=== PATIENT | male | born 1935 | race Caucasian/White ===

== ENCOUNTER 2018-05-17 01:53 | Inpatient (IN) | payer MEDICARE, OTHER ==
[2018-05-17 01:39] LABS: Albumin 4.3 g/dL (3.5-5.0); Calcium 10.1 mg/dL (8.4-10.2); Magnesium 1.9 mg/dL (1.6-2.3); Total Bilirubin 1.3 mg/dL (0.2-1.3); Total Protein 7.9 g/dL (6.3-8.2)
[2018-05-17 01:43] LABS: HCT 48.1 % (39.0-53.0); HGB 15.1 gm/dL (13.0-17.5); MCH 32.5 pg (25.0-35.0); MCHC 31.4 g/dL (31.0-37.0); MCV 103.6 fL (80.0-100.0); Macrocytosis Slight; Mean Platelet Volume 8.6; Platelet Count 262 k/uL (150-450); RBC 4.65 m/uL (4.30-5.90); RDW 13.8 % (11.5-15.5); WBC 12.5 k/uL (3.8-10.6)
--- NOTE | 2018-05-17 01:44 | XR ---
EXAMINATION TYPE: XR chest 2V DATE OF EXAM: 05/17/2018 COMPARISON: 06/19/2016 HISTORY: Difficulty breathing TECHNIQUE: Frontal and lateral views of the chest are obtained. FINDINGS: There is coarsening of the lung markings at the bases. There is no heart failure. Thoracic aorta is atheromatous. There are chest leads. There is mild wedging of T10 vertebral body. IMPRESSION: Pulmonary fibrosis. No gross heart failure. Minimal left lower lobe pneumonia cannot be entirely excluded. There is new mild compression fracture of T11 compared to old exam.
[2018-05-17 01:46] LABS: Potassium 5.8 mmol/L (3.5-5.1)
[~2018-05-17 01:53] MED LIST: FAMOTIDINE 20 MG/2 ML VIAL IV STA; MORPHINE SULFATE 2 MG/ML SYRINGE IVP STA
[2018-05-17 01:58] LABS: INR 1.1 (<1.2); Partial Thromboplastin Time 23.1 sec (22.0-30.0); Prothrombin Time 10.4 sec (9.0-12.0)
[2018-05-17] MEDS ORDERED: HEPARIN SODIUM,PORCINE 5,000 UNIT/ML 1 ML VIAL IV ONE (02:09)
[2018-05-17] MEDS ORDERED: HEPARIN SODIUM,PORCINE 5,000 UNIT/ML 1 ML VIAL IV PRN (02:09)
[2018-05-17] MEDS ORDERED: SODIUM CHLORIDE 0.9% 500 ML 500 ML IV ONE ×2 (02:10→11:11)
[2018-05-17 02:12] LABS: Creatine Kinase MB 0.8 ng/mL (0.0-2.4); Troponin I 0.024 ng/mL (0.000-0.034)
[2018-05-17] MEDS ORDERED: HEPARIN SOD,PORK IN 0.45% NACL 25,000 UNIT in 0.45% NACL 1 500ML.BAG IV SCH (02:15)
[2018-05-17 02:26] LABS: Band Neutrophils % 1 %; Lymphocytes # (M) 3.38 k/uL (1.0-4.8); Monocytes # (M) 1.13 k/uL (0-1.0); Neutrophils % (M) 63 %; Nucleated Red Blood Cells 0 /100 WBC (0-0); Total Cells Counted 100
[2018-05-17 02:27] LABS: Anisocytosis (M) Present
[2018-05-17 02:28] LABS: Large Platelets Present
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
[2018-05-17] MEDS ORDERED: MORPHINE SULFATE 4 MG/ML SYRINGE IVP STA (02:35)
[2018-05-17] MEDS ORDERED: LABETALOL 5 MG/ML VIAL MDV IVP STA ×2 (02:37→03:21)
[2018-05-17] MEDS ORDERED: HYDROmorphone 1 MG/ML 1 ML SYRINGE IVP STA (03:21)
--- NOTE | 2018-05-17 03:32 | CT ---
EXAMINATION TYPE: CT angio thor/abd pel aorta DATE OF EXAM: 05/17/2018 COMPARISON: None HISTORY: Prior Chest and A/P on synapse, no prior dedicated aorta study, chest pain worsening over th e last 3 days, evaluate aorta, CT DLP: 1334.70 mGycm. Automated Exposure Control for Dose Reduction was Utilized. CONTRAST: CT scan of the thorax, abdomen and pelvis is performed with IV Contrast, patient injected with 80ml m L of Isovue 370. FINDINGS: There are 3-D post processed images. Thoracic aorta is atheromatous. There is extensive coronary artery calcification. There is atheroscle rotic vascular calcification in the abdominal aorta and its branches. Heart is slightly enlarged. The re is no pericardial effusion. The ascending aorta measures 4 cm. There is atherosclerotic plaque in the descending thoracic aorta. There is patency of the celiac artery and superior mesenteric artery. There is bilateral patency of the renal arteries. There is variable thrombus on the posterior wall of the mid abdominal aorta. There is no evidence of hemodynamically significant stenosis. There is bilateral patency of the common internal and external iliac arteries. I see no evidence of h emodynamically significant stenosis. There is some plaque formation at the left common iliac artery. Kidneys have fairly normal size. There is no hydronephrosis. There are clips from cholecystectomy. Li yudelka spleen pancreas appear unremarkable. There is no adrenal mass. There are mild fibrotic changes at the lung bases. There is old upper thoracic vertebra mild 30% compression fracture. IMPRESSION: Atherosclerotic vascular disease. Borderline 4 cm aneurysm ascending aorta. No evidence of hemodynami teresa significant stenosis. No evidence of aortic dissection.
[2018-05-17] MEDS ORDERED: ENALAPRILAT 1.25 MG/ML 1 ML VIAL IVP STA ×2 (03:49→05:36)
[2018-05-17] MEDS ORDERED: MORPHINE SULFATE 2 MG/ML SYRINGE IVP PRN (04:21)
[2018-05-17] MEDS ORDERED: HYDROcodone/APAP 5-325MG 1 EACH TAB PO PRN (04:24)
[2018-05-17] MEDS ORDERED: NITROGLYCERIN-D5W PMX 50 MG in DEXTROSE/WATER 1 250ML.BAG IV ONE (05:36)
[2018-05-17] MEDS ORDERED: ASPIRIN 325 MG TAB PO STA (07:46)
[2018-05-17] MEDS ORDERED: ATORVASTATIN 80 MG TAB PO STA (07:46)
[2018-05-17] MEDS ORDERED: NITROGLYCERIN SL TABS 0.4 MG TAB SUBLINGUAL PRN ×2 (07:46→12:23)
[2018-05-17] MEDS ORDERED: ALPRAZolam 0.25 MG TAB PO PRN (07:46)
[2018-05-17] MEDS ORDERED: ALPRAZolam 0.5 MG TAB PO PRN (07:46)
[2018-05-17] MEDS ORDERED: SODIUM CHLORIDE 0.9% 1,000 ML in EMPTY BAG 1 BAG IV ONE (07:46)
--- NOTE | 2018-05-17 08:26 | CONS ---
CONSULTATION ATTENDING PHYSICIAN: Dr. Betancourt. HISTORY OF PRESENT ILLNESS: Mr. Taylor is an 82-year-old male with known history of coronary artery disease who presented with symptoms of chest and right arm discomfort. He has been having discomfort on and off for the last week or so. The discomfort is not activity related and worse at times with eating. The patient is not active physically because of severe osteoarthritis and uses a wheelchair. He has no prior documented history of myocardial infarction or congestive heart failure. He has no PND, orthopnea. He has occasional peripheral edema. He has no dizziness, palpitation, or syncope. His coronary risk factors are remarkable for smoking over half a pack a day, history of hypertension. He is nondiabetic. MEDICATIONS: Include ranitidine, Zestril 20 mg twice a day, levofloxacin, and hydrocodone. REVIEW OF SYSTEMS: Respiratory system: He has history of dyspnea on exertion, history of chronic obstructive lung disease. GI system: No recent GI bleeding. No peptic ulcer disease. system: No dysuria or hematuria. Nervous system: No stroke or seizure. PHYSICAL EXAMINATION: He is an 82-year-old male, alert, oriented, in no apparent distress. Blood pressure running in the 160s with a heart rate in the 60s. HEAD: Normocephalic. Eyes: Sclerae anicteric. Neck: Good upstroke. No bruit. Lungs with decreased air exchange. No wheezes. Heart: Regular rate and rhythm. S1, S2. No S3 with a systolic ejection murmur heard at the base. No diastolic murmur. No rub. ABDOMEN: Soft, nontender. Positive bowel sounds. No megaly. EXTREMITIES: Trace edema. Decreased distal pulses. LAB DATA: Revealed the potassium 5.8, BUN and creatinine 33 and 1.32. Hemoglobin 15.1, white blood cell 12.5. Troponin 0.024. NT proBNP of 280. Chest x-ray revealed pulmonary fibrosis. No significant heart failure. Revealed a 4 cm ascending aorta, atherosclerotic vascular disease. EKG revealed a sinus mechanism, normal axis. Evidence left ventricle hypertrophy with ST-segment depression in the inferolateral leads. No significant ST-T elevation. IMPRESSION: 1. Symptoms of chest discomfort consistent with unstable angina, rule out non STEMI. 2. History of hypertension. 3. Chronic tobacco use. Chronic obstructive lung disease. 4. Renal function abnormality of unknown duration. RECOMMENDATION: I recommend proceeding with coronary angiography to assess his status and guide his treatment. The rationale behind the procedure as well as risks and complications were discussed with the patient and his family who are in full understanding and agreement. The patient has a high risk because of his history of chronic kidney disease. Thank you for this consult. We will follow with you. NILSA / ESTEFANY: [id number] /
[2018-05-17 08:36] LABS: Creatine Kinase MB 11.2 ng/mL (0.0-2.4)
[2018-05-17 08:52] LABS: Troponin I 0.334 ng/mL (0.000-0.034)
[2018-05-17] MEDS ORDERED: LISINOPRIL 20 MG TAB PO SCH ×2 (09:00→13:15)
[2018-05-17] MEDS ORDERED: VERAPAMIL 2.5 MG/ML 2 ML AMP ONE (10:45)
[2018-05-17] MEDS ORDERED: LIDOCAINE 1% INJ 10MG/ML (20 ML MDV) ONE (10:45)
[2018-05-17] MEDS ORDERED: fentaNYL (PF) 50 MCG/ML 2 ML AMP ONE (10:46)
[2018-05-17] MEDS ORDERED: IV FLUID CONTINUATION 900 ML IV ONE (11:00)
[2018-05-17] MEDS ORDERED: NITROGLYCERIN D5W PMX IV ONE ×2 (11:00)
[2018-05-17] MEDS ORDERED: FLUID CONTINUATION IV ONE ×2 (11:00)
[2018-05-17] MEDS ORDERED: fentaNYL (PF) 50 MCG/ML 2 ML AMP IV ONE (11:31)
[2018-05-17] MEDS: LIDOCAINE 1% INJ 10MG/ML (20 ML MDV) SQ ONE ×2 (11:35→11:45)
[2018-05-17] MEDS ORDERED: VERAPAMIL SYRINGE (5 MG/10 ML) INTRAARTER ONE (11:36)
[2018-05-17] MEDS ORDERED: TICAGRELOR 90 MG TAB ONE (11:52)
[2018-05-17] MEDS ORDERED: TICAGRELOR 90 MG TAB PO ONE (11:53)
[2018-05-17] MEDS ORDERED: BIVALIRUDIN BOLUS 250 MG/50 ML IV ONE (11:54)
[2018-05-17] MEDS ORDERED: BIVALIRUDIN 250 MG in SODIUM CHLORIDE 0.9% 40 ML IV ONE (11:55)
[2018-05-17] MEDS ORDERED: NITROGLYCERIN 1000MCG/10ML SYRINGE INTRACORON ONE (12:04)
[2018-05-17] MEDS ORDERED: IOPAMIDOL-370 125ML BTL INJ ONE (12:05)
[2018-05-17] MEDS ORDERED: IOPAMIDOL-370 100ML BTL INJ ONE (12:16)
[2018-05-17] MEDS ORDERED: ZOLPIDEM 5 MG TAB PO PRN (12:23)
[2018-05-17] MEDS ORDERED: RX INFO: IV CONTRAST WAS GIVEN 1 EACH MISC MISCELLANE PRN (12:23)
[2018-05-17] MEDS ORDERED: ATROPINE SULFATE 0.1 MG/ML 10ML SYRINGE IV PRN (12:23)
[2018-05-17] MEDS ORDERED: SODIUM CHLORIDE 0.9% 1,000 ML IV SCH (12:30)
[2018-05-17] MEDS ORDERED: LISINOPRIL 20 MG TAB PO STA (12:53)
[2018-05-17 13:25] LABS: Glucose,Whole Blood 120 mg/dL (75-99)
[2018-05-17] MEDS ORDERED: FUROSEMIDE 10 MG/ML 2 ML VIAL IV ONE (13:30)
[2018-05-17] MEDS: NITROGLYCERIN SL TABS 0.4 MG TAB SUBLINGUAL PRN ×2 (13:31→13:34)
[2018-05-17] MEDS ORDERED: hydrALAZINE HCL 25 MG TAB PO STA (13:40)
[2018-05-17 14:11] LABS: Creatine Kinase MB 48.6 ng/mL (0.0-2.4)
[2018-05-17 14:13] LABS: Troponin I 6.25 ng/mL (0.000-0.034)
[2018-05-17] MEDS: METOPROLOL TARTRATE 50 MG TAB PO SCH ×2 (14:57→20:41)
--- NOTE | 2018-05-17 14:57 | XR ---
EXAMINATION TYPE: XR chest 1V DATE OF EXAM: 05/17/2018 COMPARISON: 05/17/2018 earlier exam, 06/19/2016 INDICATION: Dyspnea TECHNIQUE: Single frontal view of the chest is obtained. Patient is rotated to the right. FINDINGS: The heart size is normal. Mediastinum is stable. The pulmonary vasculature is normal. The lungs are clear. IMPRESSION: 1. No acute pulmonary process.
[2018-05-17 14:59] LABS: Glucose,Whole Blood 129 mg/dL (75-99)
--- NOTE | 2018-05-17 15:38 | CC ---
CARDIAC CATHETERIZATION REPORT ATTENDING: Dr. Betancourt Mr. Taylor is an 82-year-old male known history of chronic tobacco use, history off hypertension, who presented with symptoms of chest discomfort and ST depression in the inferolateral leads with minimal troponin elevation. In view of that, recommendation made regarding cardiac catheterization. The procedure, risks and complications were discussed with the patient who is in full understanding and agreement. PROCEDURE: Patient was brought to the quality lab technician in a fasting state after receiving fentanyl and Benadryl and achieving moderate conscious sedated state. Using Xylocaine anesthesia and Seldinger technique, a 6-Nigerian sheath was introduced in the right radial artery. Attempt to advance and torque a 5-Nigerian 3 and half right Kathleen catheter were unsuccessful because of severe tortuosity in the right subclavian. The aortic valve was crossed and left ventricular end-diastolic pressure was measured. Following that, using Xylocaine anesthesia and Seldinger technique, a 6-Nigerian sheath was introduced in the right femoral artery. Selective right and left angiography performed using 6- Nigerian 4 bend right and left Kathleen catheter, multiple views of the coronary artery including hemiaxial views were obtained. Following that catheter was removed. Angioplasty and stenting was performed. Following that the catheter and sheath were removed. Hemostasis was obtained with deployment of an Angio-Seal in the right femoral artery and TR band on the right radial artery. There was no immediate complication. Of note, the patient received Angiomax per protocol as well as intra-arterial verapamil. FINDINGS: FLUOROSCOPY: There was calcification involving the left main and the LAD. LEFT ANTERIOR DESCENDING CORONARY ARTERY: This is a large-sized vessel reaching toward the apex with a wraparound apex segment giving rise to a diagonal branch proximally. The LAD in the mid segment after the takeoff of the diagonal branch has an area of stenosis of about 70-80 percent. At the first diagonal branch it is occluded shortly after the takeoff. LEFT CIRCUMFLEX: This vessel is nondominant. There is an area in the proximal segment that is suggestive of a chronically occluded first obtuse marginal branch that is very proximal. Beyond that the circ is diffusely diseased and small in caliber. RIGHT CORONARY ARTERY: This is a large dominant vessel, bifurcating into PDA and posterolateral segment and branches. Right coronary artery is diffusely diseased throughout its course and ectatic in some areas. It has a area of stenosis up to 60-70 percent. There is collateral from the right coronary artery toward the obtuse marginal branch. LEFT VENTRICULOGRAM: Left ventriculogram is not performed. HEMODYNAMICS: There was no gradient across the aortic valve. The left ventricle end- diastolic pressure is 18-20 mmHg. CONCLUSION: 1. Acutely occluded first diagonal branch. 2. Significant disease in the mid LAD. 3. Appearance of chronic occlusion of the first obtuse marginal branch. 4. Moderate to severe disease in a diffuse pattern in the right coronary artery. RECOMMENDATION: In view of finding anatomy, I recommend proceeding with angioplasty and stenting of the diagonal branch and in a staged procedure, consider intervention on the LAD because of the baseline renal function. Those findings and recommendation were discussed with the patient and he is full understanding and agreement. MMODL / IJN: [id number] /
--- NOTE | 2018-05-17 15:38 | PTCA ---
PERCUTANEOUSTRANS CORORONARY ANGIOGRAPHY Mr. Taylor is an 82-year-old male with known history of chronic tobacco use, history of hypertension who presented with non ST-segment elevation myocardial infarction, underwent cardiac catheterization, was found to have a totally occluded first diagonal branch. In view of that, recommendation was made regarding angioplasty and stenting. The procedures as well as risks and complication were discussed with the patient who is in full understanding and agreement. PROCEDURE: A 6-Vietnamese FR4 guiding catheter in the system. After cannulating the left main a 0.014 balanced medium weight J-wire was advanced across the total occlusion, positioned distally. Then a 2.5 x 12 mm Trek balloon was advanced into inflation with maximum of 8 atmospheres were done. Following that, the balloon was removed and a 2.25 x 50 mm Xience Rosy stent was advanced, deployed and postdilated at 14 atmospheres. After the last inflation, after appropriate wait, the balloon and the guidewire were withdrawn back in the guiding catheter. Images were obtained repeated. Those images reveal stable successful stenting. At that point, the guiding catheter, the balloon and the guidewire were removed. The sheath was removed. Hemostasis was obtained with deployment of Angio-Seal and the radial artery sheath was removed and hemostasis was obtained with deployment of a TR band. The patient was returned to his room in stable condition. He had no chest discomfort at the end the procedure. Of note, he received Angiomax per protocol as well as oral loading dose of Brilinta. RESULTS: Successful stenting of the first diagonal branch with reduction of stenosis from 100% to 0%. RECOMMENDATION: The patient will be continued on present medical therapy with dual antiplatelet treatment and aggressive risk modification. Depending on his renal function, he will be brought back to undergo stenting of the LAD. Those findings and recommendation were discussed with the patient his family who are in full understanding and agreement. Duration of procedure is 44 minutes. MMODL / IJN: [id number] /
[2018-05-17] MEDS: SODIUM CHLORIDE 0.9% 1,000 ML IV SCH (16:46)
[2018-05-17] MEDS: NITROGLYCERIN OINT 1 INCH/GM PACKET TOPICAL SCH ×2 (16:46→23:08)
[2018-05-17] MEDS: TICAGRELOR 90 MG TAB PO SCH (20:41)
[2018-05-17] MEDS: hydrALAZINE HCL 25 MG TAB PO SCH (20:41)
[2018-05-17] MEDS ORDERED: LISINOPRIL 10 MG TAB PO SCH (21:00)
[2018-05-17] MEDS ORDERED: ATORVASTATIN 80 MG TAB PO SCH (21:00)
[2018-05-18] MEDS: FAMOTIDINE 20 MG TAB PO PRN (05:04)
[2018-05-18] MEDS ORDERED: ONDANSETRON 4 MG/2 ML VIAL IVP PRN (05:06)
[2018-05-18 05:47] LABS: Calcium 9.8 mg/dL (8.4-10.2)
[2018-05-18 05:56] LABS: Potassium 4.6 mmol/L (3.5-5.1)
[2018-05-18 06:46] LABS: HCT 47.6 % (39.0-53.0); HGB 15.5 gm/dL (13.0-17.5); MCH 32.9 pg (25.0-35.0); MCHC 32.5 g/dL (31.0-37.0); MCV 101.2 fL (80.0-100.0); Macrocytosis Slight; Mean Platelet Volume 8.4; Platelet Count 219 k/uL (150-450); RDW 13.7 % (11.5-15.5); WBC 10.2 k/uL (3.8-10.6)
--- NOTE | 2018-05-18 07:42 | PN ---
PROGRESS NOTE Mr. Taylor is an 82-year-old male who presented with an acute myocardial infarction, underwent cardiac catheterization, was found to have acutely occluded first diagonal branch. He underwent stenting of that vessel. He has obstructive disease involving the LAD and chronically occluded first obtuse marginal branch. Yesterday, he became dyspneic after the procedure. He is feeling better this morning. He is breathing is stable. He has no significant chest pain. He has no dizziness or palpitation. Hemodynamically, he is stable. He is short of breath when he moves, but at home he is very limited in physical activity. He continues to be on aspirin once a day, Lipitor 80 mg daily, Brilinta 90 mg twice a day, hydralazine 25 mg twice a day, lisinopril 40 mg daily, metoprolol tartrate 50 mg twice a day. PHYSICAL EXAMINATION: Blood pressure 135/70 with the heart rate in the 60s. LUNGS: Decreased air exchange. No wheezes. HEART: Regular rate and rhythm. S1, S2. No S3. No rub. ABDOMEN: Soft, nontender. Positive bowel sounds. No organomegaly. EXTREMITIES: No edema. Right radial pulse intact. Right Femoral: No hematoma. LAB DATA: Lab data revealed BUN and creatinine 19 and 1.03. Potassium 4.6. Hemoglobin 15.5. His troponin peak is 6.25. EKG revealed sinus mechanism with T-wave inversion in the lateral leads consistent with lateral wall myocardial infarction. IMPRESSION: 1. Status post myocardial infarction involving the diagonal branch, status post stenting. 2. Significant obstructive disease in the mid left anterior descending artery. 3. Renal failure, improved. 4. Chronic dyspnea with chronic tobacco use. 5. Hypertension. RECOMMENDATION: From the cardiac standpoint, I will obtain an echocardiogram with Doppler. Will increase his level of activity. He will be transferred to telemetry floor. If his renal functions are stable, we will proceed on Friday with percutaneous revascularization of his LAD territory. MMODL / IJN: [id number] /
[2018-05-18] MEDS ORDERED: ASPIRIN 325 MG TAB PO SCH (09:00)
[2018-05-18] MEDS ORDERED: METOPROLOL SUCCINATE (ER) 50 MG TAB.ER.24H PO SCH (09:00)
[2018-05-18] MEDS: hydrALAZINE HCL 25 MG TAB PO SCH ×2 (09:28→19:49)
[2018-05-18] MEDS: ASPIRIN 81 MG PO SCH (09:28)
[2018-05-18] MEDS: NITROGLYCERIN OINT 1 INCH/GM PACKET TOPICAL SCH ×3 (09:28→23:54)
[2018-05-18] MEDS: LISINOPRIL 20 MG TAB PO SCH ×2 (09:29→19:48)
[2018-05-18] MEDS: TICAGRELOR 90 MG TAB PO SCH ×2 (09:29→19:49)
[2018-05-18] MEDS: METOPROLOL TARTRATE 50 MG TAB PO SCH ×2 (09:29→19:49)
[2018-05-18] MEDS ORDERED: IPRATROPIUM-ALBUTEROL 3 ML NEB INHALATION PRN ×2 (09:32)
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
--- NOTE | 2018-05-18 09:55 | ECHOF ---
Referral Reason:sc MEASUREMENTS -------- HEIGHT: 182.9 cm WEIGHT: 99.3 kg BP: 123/89 IVSd: 1.2 cm (0.6 - 1.1) LVIDd: 5.1 cm (3.9 - 5.3) LVPWd: 1.6 cm (0.6 - 1.1) IVSs: 1.6 cm LVIDs: 3.7 cm LVPWs: 1.4 cm Ao Diam: 2.9 cm (2.0 - 3.7) LA Diam: 3.8 cm (2.7 - 3.8) MV E Suraj: 0.55 m/s MV DecT: 200 ms MV A Suraj: 1.01 m/s MV E/A Ratio: 0.54 RAP: 5.00 mmHg RVSP: 10.57 mmHg FINDINGS -------- Sinus rhythm. This was a techncally difficult study with suboptimal views, , Lumason utilized for enhancement of im ages. The left ventricular size is normal. There is mild concentric left ventricular hypertrophy. Overa ll left ventricular systolic function is mild-moderately impaired with, an EF between 40 - 45 %. Mi d anterior LV wall motion is hypokinetic. The right ventricle is normal in size. The left atrial size is normal. The right atrial size is normal. 5.0mg OF Lumason UTLIZED: 2 OR MORE WALL SEGMENTS NOT VISUALIZED. The aortic valve was not well visualized. Mild mitral regurgitation is present. Mild tricuspid regurgitation present. There is no evidence of pulmonary hypertension. The right v entricular systolic pressure, as measured by Doppler, is 10.57mmHg. The pulmonic valve was not well visualized. The aortic root size is normal. There is no pericardial effusion. CONCLUSIONS -------- 1. This was a techncally difficult study with suboptimal views, , Lumason utilized for enhancement of images. 2. The left ventricular size is normal. 3. There is mild concentric left ventricular hypertrophy. 4. Overall left ventricular systolic function is mild-moderately impaired with, an EF between 40 - 45 %. 5. Mid anterior LV wall motion is hypokinetic. 6. The right ventricle is normal in size. 7. The left atrial size is normal. 8. The right atrial size is normal. 9. 5.0mg OF Lumason UTLIZED: 2 OR MORE WALL SEGMENTS NOT VISUALIZED. 10. The aortic valve was not well visualized. 11. Mild mitral regurgitation is present. 12. Mild tricuspid regurgitation present. 13. There is no evidence of pulmonary hypertension. 14. The right ventricular systolic pressure, as measured by Doppler, is 10.57mmHg. 15. The pulmonic valve was not well visualized. 16. The aortic root size is normal. 17. There is no pericardial effusion. SEQUINS SPOOLER: Ludy Eddy RDCS
[2018-05-18] MEDS ORDERED: ASPIRIN 325 MG TAB PO STA (11:10)
[2018-05-18] MEDS ORDERED: ALPRAZolam 0.25 MG TAB PO PRN (11:10)
[2018-05-18] MEDS ORDERED: NITROGLYCERIN SL TABS 0.4 MG TAB SUBLINGUAL PRN (11:10)
[2018-05-18] MEDS ORDERED: SODIUM CHLORIDE 0.9% 1,000 ML in EMPTY BAG 1 BAG IV ONE (11:10)
[2018-05-18] MEDS ORDERED: ALPRAZolam 0.5 MG TAB PO PRN (11:10)
[2018-05-18] MEDS: SODIUM CHLORIDE 0.9% 1,000 ML IV SCH (11:27)
--- NOTE | 2018-05-18 12:37 | HP ---
HISTORY AND PHYSICAL CHIEF COMPLAINT: Chest pain. HISTORY OF PRESENT ILLNESS: This is the first known admission for this 82-year-old white male with history of coronary artery disease and COPD. He presented to the emergency room with severe crushing substernal chest pain with shortness of breath and diaphoresis. He was diagnosed as having a myocardial infarction and was admitted. REVIEW OF SYSTEMS: He has had no syncope, confusion, neurologic deficits, hemoptysis, pleurisy, fever, chills, abdominal pain, vomiting and diarrhea, etc. Past medical history, family history and personal and social histories reveal he is allergic to PENICILLIN. He is on Nitrostat p.r.n., Zantac 150 twice a day, lisinopril 40 once a day, timolol eye drops, [place] 5 once a day p.r.n., and Naprosyn 500 b.i.d. Past medical history, family history and personal and social histories reveal that he has had coronary artery disease, history of alcohol abuse, kidney stones, and cataract removed from the left eye. In 2016, he also had a bladder neoplasm. He has had a cholecystectomy and a T and A. He was a former smoker, but states he is not now. He drinks fairly heavily with 4 shots of liquor a day by his own admission. PHYSICAL EXAM: Blood pressure is 150/85 with a pulse of 92, respirations of 36 and he is afebrile. GENERAL: He appeared to be uncomfortable. Skin was dry. Head, ears, eyes, nose, mouth and throat demonstrated dilated left pupil, which is chronic. Neck is supple. Neck veins not distended. Carotids are normal. Chest demonstrated increased AP diameter with what sounded like sinus rhythm. There are no murmurs or extra sounds. Abdomen is soft and nontender without visceromegaly or masses. Extremities were normal. Neurologically, he is intact. He is admitted to the hospital with diagnoses: 1. Acute myocardial infarction. 2. Coronary artery disease. 3. Chronic obstructive pulmonary disease. 4. Alcoholism. 5. Glaucoma. PLAN: 1. Bed rest. 2. IV fluids. 3. Consult with Cardiology. MMODL / IJN: [id number] /
--- NOTE | 2018-05-18 13:21 | PN ---
PROGRESS NOTE DATE OF SERVICE: 05/18/2018. CHIEF COMPLAINT: Acute myocardial infarction. HISTORY OF PRESENT ILLNESS: This gentleman was moved to ICU during the night because of persistent chest pain after his stent. He has apparently been fairly stable and does not have any further pain. He has had no shortness of breath, headache, confusion, palpitations, etc. PHYSICAL EXAM: Cardiac exam demonstrates what sounds like bradycardia and possibly atrial fibrillation. Chest is clear, but breath sounds are diminished. IMPRESSION: 1. Acute myocardial infarction. 2. Unstable angina. 3. Coronary artery disease. 4. Chronic obstructive pulmonary disease. 5. Alcoholism. PLAN: Probably move back to telemetry today and he will have another stent tomorrow. MMODL / IJN: [id number] /
[2018-05-18 14:58] VITALS: BMI 29.7
[2018-05-18] MEDS: ATORVASTATIN 80 MG TAB PO STA ×2 (19:30→19:50)
[2018-05-19 06:31] LABS: Calcium 9.6 mg/dL (8.4-10.2); Potassium 4.7 mmol/L (3.5-5.1)
[2018-05-19] MEDS: SODIUM CHLORIDE 0.9% 1,000 ML IV SCH (07:04)
[2018-05-19] MEDS: METOPROLOL TARTRATE 50 MG TAB PO SCH ×2 (09:35→21:32)
[2018-05-19] MEDS: hydrALAZINE HCL 25 MG TAB PO SCH ×2 (09:35→21:33)
[2018-05-19] MEDS: TICAGRELOR 90 MG TAB PO SCH ×2 (09:35→21:32)
[2018-05-19] MEDS: LISINOPRIL 20 MG TAB PO SCH ×2 (09:35→21:33)
[2018-05-19] MEDS: ASPIRIN 81 MG PO SCH ×2 (09:35→13:28)
[2018-05-19] MEDS: NITROGLYCERIN OINT 1 INCH/GM PACKET TOPICAL SCH ×3 (09:38→22:41)
[2018-05-19] MEDS: MAG HYDROX/AL HYDROX/SIMETH 30 ML CUP PO PRN ×2 (11:01→15:41)
--- NOTE | 2018-05-19 11:32 | PN ---
PROGRESS NOTE Mr. Taylor is an 82-year-old male with a known history of hypertension who presented with a [id number] elevation myocardial infarction, underwent cardiac catheterization, was found totally occluded first diagonal branch. He had significant disease in the mid LAD and chronically occluded obtuse marginal branch. He is doing well this morning. His breathing is stable. He is denying any chest pain. He denies any dizziness or palpitation. He denies any nausea. Hemodynamically, he is stable. His echocardiogram that was performed yesterday revealed an ejection fraction of 40% to 45%. He continued be on aspirin once a day, Lipitor 80 mg daily, hydralazine 25 mg twice a day, lisinopril 20 mg twice a day, metoprolol tartrate 50 mg twice a day, Brilinta 90 mg twice a day. PHYSICAL EXAMINATION: Blood pressure in the 120s and 130s with the heart rate in the 50s. LUNGS: Clear. HEART: Regular rate and rhythm. S1, S2. No S3. No rub. ABDOMEN: Soft, nontender. EXTREMITIES: No edema. Peak troponin 24. BUN and creatinine 23 and 1.8. IMPRESSION: 1. Status post myocardial infarction with occlusion of the diagonal branch. 2. Obstructive disease in the left anterior descending artery. 3. Hypertension. 4. Hyperlipidemia. RECOMMENDATION: The patient is scheduled to undergo revascularization of his LAD tomorrow. We will follow his renal function. In the meantime, continue the rest of his medical regimen and depending on his progress, further recommendation will be made. MMCAITLIN / ESTEFANY: [id number] /
--- NOTE | 2018-05-19 13:46 | P.PN ---
Subjective Progress Note Date: 05/19/18 Principal diagnosis: Acute myocardial infarction, status post PCI and stenting of the diagonal branch This 82-year-old white male patient of Dr. Betancourt, who was admitted on 2017 for acute myocardial infarction, he underwent cardiac catheterization, which revealed acutely occluded first diagonal branch. He underwent successful PCI and stenting of that vessel. He has obstructive disease involving the LAD and first obtuse marginal branch. Post PCI patient did develop some dyspnea, but no significant chest pain. He had no dizziness or palpitations. He remained hemodynamically stable. His dyspnea was exertional. His EKG showed sinus mechanism with T-wave inversion in the lateral leads consistent with lateral wall [place]. He was reevaluated by cardiology, he is feeling better this morning, no dyspnea, no chest pain, his vitals remain stable. The plan is to proceed with the cardiac catheterization tomorrow morning. For now patient remains stable, and has been cleared by cardiology to move out of the intensive care unit today. His past medical history is significant for hypertension, chronic tobacco use, COPD, osteoarthritis. We're consulted for intensive care management. On 05/19/2018 patient seen in follow-up. No recurrence of chest pain or dyspnea , cardiology is planning on proceeding with the cardiac cath tomorrow, vital signs remain stable, lung sounds are clear. Today's labs have been reviewed, BNP showed electrolytes within normal limits, BUN of 23 and creatinine 1.18, troponin 24.6. His breathing is stable, no nausea, no vomiting, no diaphoresis. Objective - Vital Signs Vital signs: Vital Signs Temp 98.1 F 05/19/18 08:00 Pulse 52 L 05/19/18 11:45 Resp 16 05/19/18 11:45 BP 141/71 05/19/18 11:10 Pulse Ox 93 L 05/19/18 11:10 Intake & Output 05/18/18 05/19/18 05/19/18 18:59 06:59 18:59 Intake Total 150 700 240 Output Total 100 400 Balance 50 300 240 Weight 99.6 kg 92.9 kg Intake: IV 150 Sodium Chloride 0.9% 1, 150 000 ml @ 50 mls/hr IV . Q20H VIOLETA Rx#:[id number] Intake, IV Titration 700 Amount Sodium Chloride 0.9% 1, 700 000 ml @ 50 mls/hr IV . Q20H VIOLETA Rx#:[id number] Oral 240 Output: Urine 100 400 Other: Voiding Method Urinal Urinal Urinal # Voids 1 - Exam GENERAL EXAM: Alert, pleasant 82-year-old white male patient comfortable in no apparent distress. HEAD: Normocephalic/atraumatic. EYES: Normal reaction of pupils, equal size. Conjunctiva pink, sclera white. NOSE: Clear with pink turbinates. THROAT: No erythema or exudates. NECK: No masses, no JVD, no thyroid enlargement, no adenopathy. CHEST: No chest wall deformity. Symmetrical expansion. LUNGS: Lung sounds are clear CVS: Regular rate and rhythm, normal S1 and S2, no gallops, no murmurs, no rubs ABDOMEN: Soft, nontender. No hepatosplenomegaly, normal bowel sounds, no guarding or rigidity. EXTREMITIES: No clubbing, no edema, no cyanosis, 2+ pulses and upper and lower extremities. MUSCULOSKELETAL: Muscle strength and tone normal. SPINE: No scoliosis or deformity SKIN: No rashes CENTRAL NERVOUS SYSTEM: Alert and oriented -3. No focal deficits, tone is normal in all 4 extremities. PSYCHIATRIC: Alert and oriented -3. Appropriate affect. Intact judgment and insight. - Labs CBC & Chem 7: 05/18/18 04:18 05/19/18 05:41 Labs: Abnormal Lab Results - Last 24 Hours (Table) 05/19/18 Range/Units 05:41 BUN 23 H (9-20) mg/dL Assessment and Plan Assessment: Assessment: #1. Acute myocardial infarction, status post PCI and stenting of the diagonal branch #2. Dyspnea related to the above, improved #3. Coronary artery disease #4. Acute kidney injury, improved #5. COPD, with mild exacerbation #6. Chronic and ongoing nicotine dependence #7. Hypertension #8. Osteoarthritis Plan: No dyspnea, no chest pain. Vital signs are stable, his breathing is stable. The plan is to proceed with cardiac catheterization tomorrow. Lung sounds are clear to auscultation, no crackles, no wheezes. Patient is on room air. From pulmonary perspective patient is stable, and we will follow him on as-needed basis. I performed a history & physical examination of the patient and discussed their management with my nurse practitioner, Belinda Foote. I reviewed the nurse practitioner's note and agree with the documented findings and plan of care. Lung sounds are positive for mild diffuse wheezes throughout the lung saunders. The findings and the impression was discussed with the patient. I attest to the documentation by the nurse practitioner. Time with Patient: Less than 30
[2018-05-19] MEDS: FAMOTIDINE 20 MG TAB PO PRN (15:40)
--- NOTE | 2018-05-19 18:54 | PN ---
PROGRESS NOTE DATE OF SERVICE: 05/19/2018 CHIEF COMPLAINT: Acute CA. HISTORY OF PRESENT ILLNESS: This gentleman is doing well. He is comfortable. It was thought that he was going today for another stent, but it is tomorrow. He is doing well. PHYSICAL EXAM: Chest is clear. Cardiac exam is unchanged. Abdomen is soft, nontender. IMPRESSION: 1. Acute myocardial infarction. 2. Coronary artery disease. 3. Chronic obstructive pulmonary disease. 4. Alcohol abuse. PLAN: Second sitting for stenting tomorrow. MMODL / IJN: [id number] /
[2018-05-19] MEDS: ATORVASTATIN 80 MG TAB PO SCH (21:32)
[2018-05-20] MEDS: SODIUM CHLORIDE 0.9% 1,000 ML IV SCH ×2 (02:57→22:49)
[2018-05-20] MEDS: METOPROLOL TARTRATE 50 MG TAB PO SCH ×2 (04:52→20:18)
[2018-05-20] MEDS: hydrALAZINE HCL 25 MG TAB PO SCH ×2 (04:52→20:19)
[2018-05-20] MEDS: TICAGRELOR 90 MG TAB PO SCH ×2 (04:52→20:18)
[2018-05-20] MEDS: LISINOPRIL 20 MG TAB PO SCH ×2 (04:52→20:18)
[2018-05-20] MEDS ORDERED: ATORVASTATIN 80 MG TAB PO ONE (06:00)
[2018-05-20] MEDS ORDERED: ASPIRIN 325 MG TAB PO ONE (06:00)
[2018-05-20 06:59] LABS: Calcium 9.2 mg/dL (8.4-10.2); Potassium 4.8 mmol/L (3.5-5.1)
[2018-05-20] MEDS ORDERED: LIDOCAINE 1% INJ 10MG/ML (20 ML MDV) ONE (07:22)
[2018-05-20] MEDS ORDERED: fentaNYL (PF) 50 MCG/ML 2 ML AMP ONE (07:23)
[2018-05-20] MEDS ORDERED: fentaNYL (PF) 50 MCG/ML 2 ML AMP IV ONE (07:45)
[2018-05-20] MEDS ORDERED: IV FLUID CONTINUATION 900 ML IV ONE (07:45)
[2018-05-20] MEDS ORDERED: LIDOCAINE 1% INJ 10MG/ML (20 ML MDV) SQ ONE (07:54)
[2018-05-20] MEDS ORDERED: BIVALIRUDIN BOLUS 250 MG/50 ML IV ONE (07:57)
[2018-05-20] MEDS ORDERED: BIVALIRUDIN 250 MG in SODIUM CHLORIDE 0.9% 50 ML IV ONE (07:57)
[2018-05-20] MEDS ORDERED: NITROGLYCERIN 1000MCG/10ML SYRINGE INTRACORON ONE (08:04)
[2018-05-20] MEDS ORDERED: IOPAMIDOL-370 125ML BTL INJ ONE (08:12)
[2018-05-20] MEDS ORDERED: RX INFO: IV CONTRAST WAS GIVEN 1 EACH MISC MISCELLANE PRN (08:38)
[2018-05-20] MEDS ORDERED: ZOLPIDEM 5 MG TAB PO PRN (08:38)
[2018-05-20] MEDS ORDERED: NITROGLYCERIN SL TABS 0.4 MG TAB SUBLINGUAL PRN (08:38)
[2018-05-20] MEDS ORDERED: ATROPINE SULFATE 0.1 MG/ML 10ML SYRINGE IV PRN (08:38)
[2018-05-20] MEDS ORDERED: MAG HYDROX/AL HYDROX/SIMETH 30 ML CUP PO PRN (08:38)
[2018-05-20] MEDS ORDERED: SODIUM CHLORIDE 0.9% 1,000 ML IV SCH (08:45)
--- NOTE | 2018-05-20 08:52 | PTCA ---
PERCUTANEOUSTRANS CORORONARY ANGIOGRAPHY Mr. Taylor is an 82-year-old male with known history of hypertension who presented with [id number] elevation myocardial infarction on the weekend, had a totally occluded diagonal branch that was stented. He also was found to have critical stenosis involving the mid LAD. In view of that, recommendation was made regarding angioplasty and stenting. The procedure as well as the risks and complications were discussed with the patient who is in full understanding and agreement. 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 Using Xylocaine anesthesia in the Seldinger technique, a 6-Japanese sheath was introduced in the left femoral artery. Left coronary angiography performed 6-Japanese FL4 guiding catheter and after cannulating the left main a 0.014 balanced medium weight J-wire was advanced across the lesion, positioned distally. Then a 2.5 x 12 mm Trek balloon was advanced, one inflation at 8 atmospheres was done. Following that, a 3.0 x 15 mm Xience Alpine stent was deployed, postdilated at 16 atmospheres. After the last inflation, after appropriate wait, the balloon and the guidewire were withdrawn back in the guiding catheter. Images were obtained and repeated. Those images reveal stable successful stenting. At that point, the guiding catheter, the balloon and the guidewire were removed. The sheath was removed. Hemostasis was obtained with deployment of an Angio- Seal. There was no immediate complication. Patient was returned to his room in stable condition. Of note, the patient had EKG changes with the inflation with no significant chest pain. He received Angiomax per protocol. RESULTS: Successful stenting of the mid left anterior descending artery with reduction of stenosis from 75% to 0%. RECOMMENDATION: Patient will be continued on aspirin, Brilinta, beta blockers, SALMA inhibitor and statin. The importance of dual antiplatelet treatment were discussed with the patient and his family who are in full understanding and agreement. DURATION OF PROCEDURE: 20 minutes. MMODL / IJN: [id number] /
[2018-05-20] MEDS: NITROGLYCERIN OINT 1 INCH/GM PACKET TOPICAL SCH (09:48)
[2018-05-20] MEDS: ATORVASTATIN 80 MG TAB PO SCH (20:18)
[2018-05-20 20:52] VITALS: RESP 17
[2018-05-21 06:33] LABS: Calcium 9.5 mg/dL (8.4-10.2); Potassium 4.5 mmol/L (3.5-5.1)
--- NOTE | 2018-05-21 10:02 | PN ---
PROGRESS NOTE Mr. Taylor is an 82-year-old male who presented with non ST-segment elevation myocardial infarction, underwent cardiac catheterization, was found to have a totally occluded first diagonal branch. He underwent stenting and subsequently was admitted to undergo stenting of the LAD. Subsequently underwent stenting of the LAD yesterday. He is doing well this morning. He has no chest pain. He has some acid reflux. No dizziness. No palpitation. His breathing is stable. He continued on aspirin once a day, Lipitor 80 mg daily, hydralazine 25 mg twice a day, lisinopril 20 mg twice a day, metoprolol tartrate 50 mg twice a day, and Brilinta 90 mg twice a day. PHYSICAL EXAMINATION: Blood pressure running in the 140s with a heart rate in the 60s. LUNGS: Clear. HEART: Regular rate and rhythm. S1, S2. No S3. No rub. ABDOMEN: Soft, nontender. EXTREMITIES: No edema. LAB DATA: Revealed BUN and creatinine of 18 and 1.08, potassium 4.5 her. IMPRESSION: 1. Status post non STEMI with totally occluded diagonal branch, status post stenting. 2. Stenting of the left anterior descending artery. 3. Chronically occluded obtuse marginal branch. 4. History of hypertension. 5. Hyperlipidemia. RECOMMENDATION: Patient should be able to be discharged home today and followed as an outpatient. MMODL / IJN: [id number] /
[2018-05-21] MEDS: LISINOPRIL 20 MG TAB PO SCH (10:53)
[2018-05-21] MEDS: TICAGRELOR 90 MG TAB PO SCH (10:53)
[2018-05-21] MEDS: ASPIRIN 81 MG PO SCH (10:53)
[2018-05-21] MEDS: MAG HYDROX/AL HYDROX/SIMETH 30 ML CUP PO PRN (10:53)
[2018-05-21] MEDS: hydrALAZINE HCL 25 MG TAB PO SCH (10:53)
[2018-05-21 11:10] VITALS: BP 150/72; TEMP 97
--- NOTE | 2018-05-21 13:08 | PN ---
PROGRESS NOTE DATE OF SERVICE: 05/20/2018 CHIEF COMPLAINT: Coronary artery disease and acute AL. HISTORY OF PRESENT ILLNESS: This gentleman is doing well and going for the second procedure. PHYSICAL EXAM: Chest is clear. Cardiac exam is normal. Abdomen is soft, nontender. IMPRESSION: 1. Acute myocardial infarction. 2. Coronary artery disease. 3. Chronic obstructive pulmonary disease. PLAN: Second cardiac cath is to be done with placement of at least one more stent. MMODL / IJN: [id number] /
[2018-05-21 14:48] VITALS: PULSE 60
--- NOTE | 2018-05-21 16:29 | PN ---
PROGRESS NOTE CHIEF COMPLAINT: Acute VT. HISTORY OF PRESENT ILLNESS: This gentleman expects that he is going home today. He is not having any chest pain, shortness of breath, etc. PHYSICAL EXAMINATION: Chest is clear. Cardiac exam is normal. Abdomen is soft, nontender. IMPRESSION: Acute myocardial infarction. PLAN: Probably home today. MMODL / IJN: [id number] /
--- NOTE | 2018-05-21 23:26 | DS ---
DISCHARGE SUMMARY CHIEF COMPLAINT: Chest pain and diaphoresis. HISTORY OF PRESENT ILLNESS AND PHYSICAL EXAMINATION: Details of this man's history and physical can be found in the initial workup. LABORATORY STUDIES: While he was in the hospital he had laboratory studies, details of which can be found in the laboratory section of his chart. COURSE IN THE HOSPITAL: After admission he was placed on bedrest, started on intravenous fluids and taken to the carpenter/labor, where he was found to have multiple coronary artery occlusions. The OM was stented, but because of the dye load, any further intervention was postponed. Several days later he went for a second sitting, and the balance of his lesions, including the LAD, were addressed. He did well postoperatively and it was felt that he could go home on 05/21. He will be seen in the office in several days. He will be set up with home care. FINAL DIAGNOSES: 1. Acute myocardial infarction. 2. Coronary artery disease. 3. Chronic obstructive pulmonary disease. OPERATIONS: Cardiac cath and stenting. CONSULTATIONS: Cardiology. He is improved. MMODL / IJN: [id number] /
== END 2018-05-21 16:35 | disposition home health service (06) | DRG 247 ==
LOC: EC 01:53 → 3SCARD 05:30 → 2SICU 14:48 → 3SCARD 05-18 10:01
PROVIDERS: ADMIT Family Medicine; ATTEND Family Medicine
PROC: B2111ZZ Fluoroscopy of Multiple Coronary Arteries using Low Osmolar Contrast (ICD-10-PCS; 2018-05-17)
PROC: B2151ZZ Fluoroscopy of Left Heart using Low Osmolar Contrast (ICD-10-PCS; 2018-05-17)
PROC: 4A023N7 Measurement of Cardiac Sampling and Pressure, Left Heart, Percutaneous Approach (ICD-10-PCS; principal; 2018-05-17 11:00)
PROC: 027034Z Dilation of Coronary Artery, One Artery with Drug-eluting Intraluminal Device, Percutaneous Approach (ICD-10-PCS; 2018-05-17 11:00)
PROC: 027034Z Dilation of Coronary Artery, One Artery with Drug-eluting Intraluminal Device, Percutaneous Approach (ICD-10-PCS; 2018-05-20)
DX: I21.02 ST elevation (STEMI) myocardial infarction involving left anterior descending coronary artery (principal); N17.9 Acute kidney failure, unspecified; I25.10 Atherosclerotic heart disease of native coronary artery without angina pectoris; J44.9 Chronic obstructive pulmonary disease, unspecified; Z88.0 Allergy status to penicillin; Z90.49 Acquired absence of other specified parts of digestive tract; F10.20 Alcohol dependence, uncomplicated; H40.9 Unspecified glaucoma; Z87.442 Personal history of urinary calculi; Z86.73 Personal history of transient ischemic attack (TIA), and cerebral infarction without residual deficits; Z79.1 Long term (current) use of non-steroidal anti-inflammatories (NSAID); Z79.891 Long term (current) use of opiate analgesic; Z79.899 Other long term (current) drug therapy; H57.9 Unspecified disorder of eye and adnexa; M17.0 Bilateral primary osteoarthritis of knee; H54.7 Unspecified visual loss; Z98.42 Cataract extraction status, left eye; F17.210 Nicotine dependence, cigarettes, uncomplicated; Z82.49 Family history of ischemic heart disease and other diseases of the circulatory system; I71.2 Thoracic aortic aneurysm, without rupture; E78.5 Hyperlipidemia, unspecified; K21.9 Gastro-esophageal reflux disease without esophagitis; Z91.011 Allergy to milk products; I12.9 Hypertensive chronic kidney disease with stage 1 through stage 4 chronic kidney disease, or unspecified chronic kidney disease; N18.9 Chronic kidney disease, unspecified; I77.1 Stricture of artery
CPT/HCPCS: 36415; 71045; 71046; 71275; 74174; 80048; 80053; 80061; 82150; 82550; 82553; 83690; 83735; 83880; 84484; 85025; 85027; 85347; 85610; 85730; 93005; 93306; 93458; 96365; 96366; 96375; 96376; 99291; C1874

== ENCOUNTER 2018-06-11 10:23 | Inpatient (IN) | payer MEDICARE, OTHER ==
[2018-06-11] MEDS ORDERED: IPRATROPIUM-ALBUTEROL 3 ML NEB INHALATION STA (10:43)
[2018-06-11] MEDS ORDERED: SODIUM CHLORIDE 0.9% 500 ML 500 ML IV STA (10:43)
[2018-06-11] MEDS ORDERED: methylPREDNISolone SOD SUCCI 125 MG/2 ML VIAL IV STA (11:06)
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
--- NOTE | 2018-06-11 11:41 | XR ---
EXAMINATION TYPE: XR chest 2V DATE OF EXAM: 06/11/2018 COMPARISON: Chest x-ray and CT May 17, 2018. HISTORY: Dyspnea and shortness of breath. TECHNIQUE: Frontal and lateral views of the chest are obtained. FINDINGS: There is chronic emphysematous and parenchymal change bilaterally without suspicious focal airspace opacity, pleural effusion, or pneumothorax seen. The cardiac silhouette size remains enlarg ed with atherosclerotic and ectatic thoracic aorta causing mass effect on the trachea redemonstrated. The osseous structures are somewhat demineralized. IMPRESSION: Chronic changes and cardiomegaly without acute pulmonary process.
[2018-06-11 12:09] LABS: Basophils # (A) 0.1 k/uL (0-0.2); Basophils % (A) 1 %; Eosinophils # (A) 0.5 k/uL (0-0.7); Eosinophils % (A) 7 %; HCT 51.2 % (39.0-53.0); HGB 16.3 gm/dL (13.0-17.5); INR 1.3 (<1.2); Lymphocytes # (A) 1.4 k/uL (1.0-4.8); Lymphocytes % (A) 17 %; MCH 32.6 pg (25.0-35.0); MCHC 31.8 g/dL (31.0-37.0); MCV 102.3 fL (80.0-100.0); Macrocytosis Slight; Mean Platelet Volume 9.6; Monocytes # (A) 0.5 k/uL (0-1.0); Monocytes % (A) 6 %; Neutrophils # (A) 5.2 k/uL (1.3-7.7); Neutrophils % (A) 65 %; Partial Thromboplastin Time 23.8 sec (22.0-30.0); Platelet Count 221 k/uL (150-450); Prothrombin Time 12.6 sec (9.0-12.0); RDW 13.5 % (11.5-15.5); WBC 8.1 k/uL (3.8-10.6)
[2018-06-11 12:15] LABS: Albumin 4.6 g/dL (3.5-5.0); Calcium 10.6 mg/dL (8.4-10.2); Magnesium 2.1 mg/dL (1.6-2.3); Total Bilirubin 0.7 mg/dL (0.2-1.3); Total Protein 8.6 g/dL (6.3-8.2)
[2018-06-11 12:31] LABS: Creatine Kinase MB 1.3 ng/mL (0.0-2.4)
[2018-06-11 12:50] LABS: Troponin I 0.122 ng/mL (0.000-0.034)
[2018-06-11 12:52] LABS: Potassium 6.5 mmol/L (3.5-5.1)
[2018-06-11] MEDS ORDERED: SODIUM CHLORIDE 0.9% 500 ML 500 ML IV ONE (13:03)
[2018-06-11] MEDS ORDERED: INSULIN REGULAR 100 UNIT/ML VIAL IV ONE ×2 (14:36→20:46)
[2018-06-11] MEDS ORDERED: ALBUTEROL NEB (CONC) 2.5 MG/0.5 ML INHALATION ONE (14:36)
[2018-06-11] MEDS ORDERED: DEXTROSE 50%-WATER 50 ML SYRINGE IVP ONE (14:36)
[2018-06-11] MEDS ORDERED: CALCIUM CHLORIDE 1,000 MG in SODIUM CHLORIDE 0.9% 100 ML IV ONE (14:36)
[2018-06-11] MEDS ORDERED: SODIUM POLYSTYRENE SULFONATE 15 GM/60 ML BOTTLE PO ONE (14:36)
[2018-06-11] MEDS ORDERED: SODIUM BICARB 8.4% 50 ML SYR (1 MEQ/ML) IV ONE ×2 (14:42→15:18)
[2018-06-11] MEDS ORDERED: NITROGLYCERIN SL TABS 0.4 MG TAB SUBLINGUAL PRN ×2 (14:46→18:02)
[2018-06-11] MEDS: SODIUM CHLORIDE 0.9% 1,000 ML IV SCH (15:09)
[2018-06-11] MEDS: IPRATROPIUM-ALBUTEROL 3 ML NEB INHALATION SCH ×2 (15:19→20:16)
[2018-06-11] MEDS ORDERED: ALBUTEROL NEBULIZED 2.5 MG/3 ML INHALATION PRN (18:02)
[2018-06-11] MEDS ORDERED: FAMOTIDINE 20 MG TAB PO PRN (18:02)
[2018-06-11] MEDS ORDERED: HYDROcodone/APAP 5-325MG 1 EACH TAB PO PRN (18:02)
[2018-06-11 18:44] LABS: Creatine Kinase MB 1.7 ng/mL (0.0-2.4)
[2018-06-11 18:45] LABS: Troponin I 0.121 ng/mL (0.000-0.034)
[2018-06-11] MEDS: DEXTROSE 5% IN WATER 1,000 ML with SODIUM BICARB (1 MEQ/ML) 100 ML IV SCH (19:33)
[2018-06-11] MEDS ORDERED: DEXTROSE 50%-WATER 50 ML SYRINGE IVP STA (20:46)
[2018-06-11] MEDS ORDERED: CALCIUM GLUCONATE 1,000 MG in SODIUM CHLORIDE 0.9% 100 ML IVPB ONE (20:47)
[2018-06-11] MEDS: TICAGRELOR 90 MG TAB PO SCH (21:17)
[2018-06-11] MEDS: SYMBICORT 80-4.5 MCG INHALER INHALATION SCH (23:51)
[2018-06-12] MEDS: IPRATROPIUM-ALBUTEROL 3 ML NEB INHALATION SCH ×7 (00:09→23:46)
[2018-06-12 00:17] LABS: Calcium 10.3 mg/dL (8.4-10.2); Potassium 4.8 mmol/L (3.5-5.1)
[2018-06-12 00:32] LABS: Creatine Kinase MB 2.7 ng/mL (0.0-2.4)
[2018-06-12 00:34] LABS: Troponin I 0.128 ng/mL (0.000-0.034)
[2018-06-12] MEDS: SODIUM CHLORIDE 0.9% 1,000 ML IV SCH (02:13)
[2018-06-12] MEDS: DEXTROSE 5% IN WATER 1,000 ML with SODIUM BICARB (1 MEQ/ML) 100 ML IV SCH ×2 (02:13→18:02)
[2018-06-12 06:42] LABS: Calcium 10.9 mg/dL (8.4-10.2); Potassium 5.1 mmol/L (3.5-5.1)
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
[2018-06-12] MEDS: SYMBICORT 80-4.5 MCG INHALER INHALATION SCH ×2 (08:13→19:40)
[2018-06-12] MEDS: TIMOLOL 0.5% OPHTH DROPS 5 ML BTL LEFT EYE SCH (09:30)
[2018-06-12] MEDS: SODIUM BICARBONATE TAB 650 MG TAB PO SCH ×3 (09:30→21:06)
[2018-06-12] MEDS: ASPIRIN 81 MG PO SCH (09:30)
[2018-06-12] MEDS: TICAGRELOR 90 MG TAB PO SCH ×2 (09:30→21:06)
[2018-06-12] MEDS: METOPROLOL TARTRATE 25 MG TAB PO SCH (09:30)
--- NOTE | 2018-06-12 10:10 | US ---
EXAMINATION TYPE: US kidneys/renal and bladder DATE OF EXAM: 06/12/2018 COMPARISON: CT CLINICAL HISTORY: diana. EXAM MEASUREMENTS: Right Kidney: 10.4 x 4.5 x 4.6 cm Left Kidney: 10.2 x 4.7 x 4.6 cm Right Kidney: No hydronephrosis or masses seen Left Kidney: No hydronephrosis or masses seen Bladder: hernandez visualized There is no evidence for hydronephrosis at this point in time. No nephrolithiasis is seen. No babak s are identified. Bilateral ureteral jets are seen. IMPRESSION: No distinct abnormality appreciated.
[2018-06-12 13:24] LABS: Amorphous Sediment,Urine Rare /hpf; Appearance,Urine Cloudy (Clear); Bacteria,Urine Moderate /hpf; Bilirubin,Urine Negative (Negative); Blood,Urine Large (Negative); Color,Urine Light Red; Glucose,Urine (UA) Negative (Negative); Ketones,Urine Negative (Negative); Leukocyte Esterase,Urine Negative (Negative); Mucus,Urine Rare /hpf; Nitrite,Urine Negative (Negative); Protein,Urine 1+ (Negative); RBC,Urine >182 /hpf (0-5); Specific Gravity,Urine 1.013 (1.001-1.035); Squamous Epithelial Cell,Urine 1 /hpf (0-4); Urobilinogen,Urine <2.0 mg/dL (<2.0); WBC,Urine 26 /hpf (0-5)
[2018-06-12] MEDS ORDERED: FAMOTIDINE 20 MG TAB PO PRN (13:30)
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
--- NOTE | 2018-06-12 17:50 | HP ---
HISTORY AND PHYSICAL CHIEF COMPLAINT: Weakness and shortness of breath. HISTORY OF PRESENT ILLNESS: This is another recent admission for this 82-year-old white male who has very severe COPD and was recently admitted with an acute OK. He underwent cardiac cath with stenting and was discharged, but had a lucy course as an outpatient. He continued to be weak, short of breath and not able to the eat. Adjustments were made in his medication because his blood pressure remained extremely low. His renal function also started to deteriorate. Despite cutting back on any of the medicines that might have held his blood pressure down, he continued to get progressively weak and came to the emergency room. His potassium was elevated and BUN and creatinine were markedly so. He is not having any significant chest pain. He has had no fever, chills, hemoptysis, pleuritic pain, abdominal pain, vomiting, diarrhea, melena, etc. Past medical history, family history and personal and social histories are all otherwise unremarkable and unchanged from his recent admitting and discharge summaries. He has not been smoking. ALLERGIES: PENICILLIN. MEDICATIONS: Medications included: 1. Metoprolol 50 mg once a day. 2. Zofran. 3. Symbicort 80/4.5 twice a day. 4. Lasix 20 mg once a day. 5. Ticagrelor 90 mg once a day. 6. Aspirin 81 mg a day. 7. Nitroglycerin p.r.n. 8. Zantac. 9. Timolol eye drops. 10.Vicodin. 11.Naprosyn. PHYSICAL EXAMINATION: Blood pressure 100/60, pulse 60, regular, respirations 12. He is afebrile. In general he appeared to be chronically ill. Head, ears, eyes, nose, mouth and throat were unchanged, with the blind eye on the left. Carotids were normal. Neck veins were slightly distended. Chest demonstrated increased AP diameter with poor breath sounds and rales and rhonchi throughout. Cardiac exam demonstrated what sounded like sinus rhythm. No murmurs, but there was an S4. The abdomen was slightly protuberant. Abdomen was soft, nontender. There were no masses or visceromegaly. Extremities were normal without significant edema. Neurologically he was intact. He is admitted to the hospital with the diagnoses: 1. Acute prerenal azotemia. 2. Chronic renal failure. 3. Chronic obstructive pulmonary disease. 4. Recent myocardial infarction with stenting. 5. Glaucoma. PLAN: 1. Bed rest. 2. IV fluids. 3. Consult with Nephrology. MMHIRAML / SUDHAKARN: [id number] /
[2018-06-12] MEDS: NITROGLYCERIN OINT 1 INCH/GM PACKET TOPICAL SCH (18:02)
--- NOTE | 2018-06-12 18:08 | PN ---
PROGRESS NOTE DATE OF SERVICE: 06/12/2018 CHIEF COMPLAINT: Renal failure, CAD and COPD. HISTORY OF PRESENT ILLNESS: This gentleman still feels quite weak. He is not nauseated. Potassium has come down. His blood sugars are elevated. He has been having some episodes chest discomfort. PHYSICAL EXAMINATION: Decreased breath sounds bilaterally with occasional rales and rhonchi. Cardiac exam is normal. The abdomen is slightly protuberant and soft. IMPRESSION: 1. Acute renal failure. 2. Prerenal azotemia. 3. Chronic kidney disease. 4. Elevated blood sugars. 5. Chest pain. PLAN: 1. Continue with rehydration. 2. Consult Cardiology. MMODL / IJN: [id number] /
[2018-06-12] MEDS ORDERED: MORPHINE SULFATE 2 MG/ML SYRINGE IVP PRN (19:09)
[2018-06-12 21:00] LABS: Parathyroid Hormone Intact 68.8 pg/mL (14.0-72.0)
[2018-06-13] MEDS: DEXTROSE 5% IN WATER 1,000 ML with SODIUM BICARB (1 MEQ/ML) 100 ML IV SCH ×2 (01:25→13:04)
[2018-06-13] MEDS: NITROGLYCERIN OINT 1 INCH/GM PACKET TOPICAL SCH ×2 (01:25→13:28)
[2018-06-13] MEDS: IPRATROPIUM-ALBUTEROL 3 ML NEB INHALATION SCH ×6 (03:36→23:41)
[2018-06-13] MEDS: SYMBICORT 80-4.5 MCG INHALER INHALATION SCH ×2 (07:55→20:55)
[2018-06-13 09:05] LABS: Calcium 9.8 mg/dL (8.4-10.2); Phosphorus 3.4 mg/dL (2.5-4.5)
[2018-06-13 09:30] LABS: Magnesium 1.7 mg/dL (1.6-2.3); Potassium 5.6 mmol/L (3.5-5.1)
[2018-06-13] MEDS: ASPIRIN 81 MG PO SCH (10:18)
[2018-06-13] MEDS: SODIUM BICARBONATE TAB 650 MG TAB PO SCH ×3 (10:18→19:51)
[2018-06-13] MEDS: TICAGRELOR 90 MG TAB PO SCH ×2 (10:18→19:51)
[2018-06-13] MEDS: METOPROLOL TARTRATE 25 MG TAB PO SCH (10:18)
[2018-06-13] MEDS: TIMOLOL 0.5% OPHTH DROPS 5 ML BTL LEFT EYE SCH (10:29)
--- NOTE | 2018-06-13 13:42 | PN ---
PROGRESS NOTE DATE OF SERVICE: 06/13/2018 CHIEF COMPLAINT: Acute renal failure, prerenal azotemia, CAD and CHF. HISTORY OF PRESENT ILLNESS: This gentleman is doing slightly better. He is a little bit less short of breath. He is not having any chest pain today. He has been seen by Cardiology. His renal function is improving. PHYSICAL EXAM: Chest demonstrates rales at both bases and there are occasional rhonchi. He has a slightly congested cough. Cardiac exam is unchanged. Abdomen is soft, nontender. IMPRESSION: 1. Acute renal failure. 2. Chronic renal failure. 3. Coronary artery disease. 4. Congestive heart failure. 5. Urinary tract infection. PLAN: Continue with current treatment and renal function is being watched by Nephrology and it is improving. MMODL / IJN: [id number] /
[2018-06-13 14:10] VITALS: BMI 25.5
--- NOTE | 2018-06-13 14:23 | P.PN ---
Subjective This is a pleasant 82-year-old male past medical history significant for ischemic cardiomyopathy, COPD and osteoarthritis. He recently underwent cardiac catheterization and was found to have a total occlusion of the diagonal branch, significant disease in the mid LAD, total occlusion of the OM branch and diffuse severe disease involving the right coronary artery. He underwent stent placement of the diagonal branch by Dr. Bowen. He is now admitted to the hospital with acute renal failure and is being seen by nephrology. We are following him secondary to mildly elevated troponins. At the time of my exam the patient is seen resting comfortably in bed he is lying flat in no acute distress. He denies any symptoms of chest pain, shortness of breath, dizziness or palpitations. He states yesterday he was having a lot of pelvic and abdominal discomfort and it was found that his [place] catheter was not draining properly. Since removing the [place] catheter he has had no further symptoms of pain whatsoever. Laboratory data reviewed, sodium 143, potassium 5.6, creatinine 2.49, NT proBNP 2500. Blood pressure 134/62 heart rate 68 afebrile maintaining oxygen saturation on room air. ASSESSMENT Chest pain, atypical. This has resolved. Acute renal failure COPD History of coronary artery disease status post recent angioplasty. Ischemic cardiomyopathy Chronic systolic heart failure currently euvolemic. PLAN Echocardiogram has been obtained and will be reviewed. Discontinue Nitropaste and assess for any further symptoms of chest discomfort. Continue aspirin, metoprolol and Brilinta as previously ordered. Ongoing medical management. Nurse Practitioner note has been reviewed, I agree with a documented findings and plan of care. Patient was seen and examined. Objective - Vital Signs Vital signs: Vital Signs Temp 97.6 F 06/13/18 08:00 Pulse 76 06/13/18 11:41 Resp 16 06/13/18 08:00 BP 134/62 06/13/18 08:00 Pulse Ox 94 L 06/13/18 08:00 Intake & Output 06/12/18 06/13/18 06/13/18 18:59 06:59 18:59 Intake Total 600 50 Output Total 800 750 Balance -200 -700 Weight 85.4 kg 85.4 kg Intake: Oral 600 50 Output: Urine 800 750 Other: Voiding Method Indwelling Catheter Indwelling Catheter Urinal # Voids 1 - Labs CBC & Chem 7: 06/11/18 10:48 06/13/18 08:04 Labs: Abnormal Lab Results - Last 24 Hours (Table) 06/12/18 06/13/18 Range/Units 05:46 08:04 Potassium 5.6 H (3.5-5.1) mmol/L Chloride 111 H (98-107) mmol/L Carbon Dioxide 19 L (22-30) mmol/L BUN 78 H (9-20) mg/dL Creatinine 2.49 H (0.66-1.25) mg/dL Glucose 103 H (74-99) mg/dL Vitamin D 25-Hydroxy 10.0 L (30.0-100.0) ng/mL Microbiology - Last 24 Hours (Table) 06/11/18 10:48 Blood Culture - Preliminary Blood No Growth after 48 hours
--- NOTE | 2018-06-13 14:33 | P.PN ---
Subjective Progress Note Date: 06/13/18 Principal diagnosis: This 82-year-old male is seen because of acute kidney injury from volume depletion and decreased intake. His renal function is improved but but he is still not eating well because he says he doesn't like the food here. He denies any nausea vomiting chest pain and heartburn abdominal pain. No problem with his urine after Galicia catheter was discontinued. His potassium though went up although his creatinine came down therefore is a possibility that he has neurogenic bladder or outlet obstruction. He says is able to walk and wants to go home badly. History of present illness: Patient is a 82-year-old male seen in renal consultation for acute kidney injury and hyperkalemia. Patient's baseline creatinine is near 1 and was elevated at 6.76 on admission. Patient was noted to be hyperkalemic with a potassium level of 6.5 and also acidotic with bicarb level of 17. The hyperkalemia was medically treated and he also received 2 L of normal saline bolus. Patient's blood pressure was in the systolic 80s and is much better now. He also had a Galicia catheter placed last night. Patient was started on bicarb drip but is currently on hold due to no IV access. He is nonoliguric. Creatinine is down to 4.23. Potassium level 5.1. He is also noted to be hypercalcemic with a calcium level of 10.6 on admission and 10.9 this morning. Patient denies use of NSAIDs. Denies hematuria or dysuria. Patient states for the last month his appetite has been poor and he has not been eating and drinking much. He is afebrile. Patient states he's been feeling weak and is not able to perform his daily activities recently. Objective - Vital Signs Vital signs: Vital Signs Temp 97.6 F 06/13/18 08:00 Pulse 76 06/13/18 11:41 Resp 16 06/13/18 08:00 BP 134/62 06/13/18 08:00 Pulse Ox 94 L 06/13/18 08:00 Intake & Output 06/12/18 06/13/18 06/13/18 18:59 06:59 18:59 Intake Total 600 50 Output Total 800 750 Balance -200 -700 Weight 85.4 kg 85.4 kg Intake: Oral 600 50 Output: Urine 800 750 Other: Voiding Method Indwelling Catheter Indwelling Catheter Urinal # Voids 1 On examination is awake alert oriented HEENT exam no JVP neck is supple no facial asymmetry Lungs are clear to auscultation good air entry bilaterally Heart sounds are unremarkable for any murmur rub gallop Abdomen soft nontender no organomegaly ascites masses Extremity exam was no edema Neurologically awake alert oriented. - Labs CBC & Chem 7: 06/11/18 10:48 06/13/18 08:04 Labs: Abnormal Lab Results - Last 24 Hours (Table) 06/12/18 06/13/18 Range/Units 05:46 08:04 Potassium 5.6 H (3.5-5.1) mmol/L Chloride 111 H (98-107) mmol/L Carbon Dioxide 19 L (22-30) mmol/L BUN 78 H (9-20) mg/dL Creatinine 2.49 H (0.66-1.25) mg/dL Glucose 103 H (74-99) mg/dL Vitamin D 25-Hydroxy 10.0 L (30.0-100.0) ng/mL Microbiology - Last 24 Hours (Table) 06/11/18 10:48 Blood Culture - Preliminary Blood No Growth after 48 hours Assessment and Plan Plan: Assessment: 1. Nonoliguric acute kidney injury mostly prerenal from hypotension along with poor oral intake and diuresis. Creatinine 6.76 on admission and is down to 2.49 today. Baseline creatinine near 1. 2. Hyperkalemia secondary to acute kidney injury and metabolic acidosis. Improved with medical management. Potassium went up to 5.6 again possibly outlet obstruction. 3. Metabolic acidosis secondary to acute kidney injury. Bicarb improved to 19 4. Hypercalcemia which is likely from the IV calcium he received for hyperkalemia. Unclear etiology. I don't see any calcium/vitamin D supplementation or thiazide diuretics and his home medications. Calcium is 9.8 , PTH is 68 Plan: 1. Check bladder scan for postvoid residual. 2 maintain oral bicarb 650 3 times a day 3. Encouraged oral intake. 4. Repeat electrolytes in the morning.
--- NOTE | 2018-06-13 15:22 | ECHOF ---
Referral Reason:Chest pain and cardiomyopathy MEASUREMENTS -------- HEIGHT: 182.9 cm WEIGHT: 85.3 kg BP: 106/58 IVSd: 1.3 cm (0.6 - 1.1) LVIDd: 3.8 cm (3.9 - 5.3) LVPWd: 1.3 cm (0.6 - 1.1) EDV(Teich): 64 ml IVSs: 1.9 cm LVIDs: 2.4 cm LVPWs: 1.7 cm %IVS Thck: 47 % ESV(Teich): 21 ml EF(Teich): 67 % %FS: 37 % SV(Teich): 43 ml LA Diam: 3.7 cm (2.7 - 3.8) RVIDd: 2.5 cm (< 3.3) LALs A4C: 4.2 cm LAAs A4C: 13.5 cm LAESV A-L A4C: 37 ml LAESV MOD A4C: 37 ml LALs A2C: 5.6 cm LAAs A2C: 16.0 cm LAESV A-L A2C: 39 ml LAESV MOD A2C: 36 ml LAESV(A-L): 44 ml LAESV Index (A-L): 21.19 ml/m Ao Diam: 3.2 cm (2.0 - 3.7) AV Cusp: 2.0 cm (1.5 - 2.6) EPSS: 0.6 cm MV E Suraj: 0.65 m/s MV DecT: 416 ms MV Dec Coke: 1.6 m/s MV A Suraj: 1.25 m/s MV E/A Ratio: 0.52 MV PHT: 121 ms AV Vmax: 1.32 m/s AV maxP.95 mmHg MV EF SLOPE: 114.90 mm/s (70 - 150) MV EXCURSION: 14.01 mm (> 18.000) FINDINGS -------- Sinus rhythm. This was a technically difficult study with suboptimal views. The left ventricular size is normal. There is mild concentric left ventricular hypertrophy. Overa ll left ventricular systolic function is normal with, an EF between 55 - 60 %. The right ventricle is normal in size and function. Normal LA size by volume 22+/-6 ml/m2. The right atrium is normal in size. 3 ml of Lumason was utilized for enhancement of images. There is mild aortic valve sclerosis. Mild mitral annular calcification present. The tricuspid valve appears structurally normal. The pulmonic valve was not well visualized. The aortic root size is normal. Normal inferior vena cava with normal inspiratory collapse consistent with estimated right atrial pre ssure of 5 mmHg. There is no pericardial effusion. CONCLUSIONS -------- 1. Sinus rhythm. 2. This was a technically difficult study with suboptimal views. 3. The left ventricular size is normal. 4. There is mild concentric left ventricular hypertrophy. 5. Overall left ventricular systolic function is normal with, an EF between 55 - 60 %. 6. The right ventricle is normal in size and function. 7. Normal LA size by volume 22+/-6 ml/m2. 8. The right atrium is normal in size. 9. 3 ml of Lumason was utilized for enhancement of images. 10. There is mild aortic valve sclerosis. 11. Mild mitral annular calcification present. 12. The tricuspid valve appears structurally normal. 13. The pulmonic valve was not well visualized. 14. The aortic root size is normal. 15. Normal inferior vena cava with normal inspiratory collapse consistent with estimated right atrial pressure of 5 mmHg. 16. There is no pericardial effusion. [employer] REPAIRER: Trista Gipson RDCS
[2018-06-14] MEDS: IPRATROPIUM-ALBUTEROL 3 ML NEB INHALATION SCH ×6 (03:03→23:13)
[2018-06-14 06:52] LABS: Glucose,Whole Blood 95 mg/dL (75-99)
[2018-06-14] MEDS: SYMBICORT 80-4.5 MCG INHALER INHALATION SCH ×2 (07:54→21:07)
[2018-06-14] MEDS: METOPROLOL TARTRATE 25 MG TAB PO SCH (09:22)
[2018-06-14] MEDS: ASPIRIN 81 MG PO SCH (09:23)
[2018-06-14] MEDS: TIMOLOL 0.5% OPHTH DROPS 5 ML BTL LEFT EYE SCH (09:23)
[2018-06-14] MEDS: TICAGRELOR 90 MG TAB PO SCH ×2 (09:23→20:41)
[2018-06-14] MEDS: SODIUM BICARBONATE TAB 650 MG TAB PO SCH ×3 (09:23→20:41)
--- NOTE | 2018-06-14 13:06 | P.PN ---
Subjective Progress Note Date: 06/14/18 Principal diagnosis: This 82-year-old male is seen because of acute kidney injury from volume depletion and decreased intake. His renal function is improved. His appetite is improved compared to yesterday. He doesn't like the food here though. He denies any nausea vomiting chest pain and heartburn abdominal pain. No problem with his urine after Galicia catheter was discontinued. His potassium though went up although his creatinine came down therefore is a possibility that he has neurogenic bladder or outlet obstruction. He says is able to walk and wants to go home badly. History of present illness: Patient is a 82-year-old male seen in renal consultation for acute kidney injury and hyperkalemia. Patient's baseline creatinine is near 1 and was elevated at 6.76 on admission. Patient was noted to be hyperkalemic with a potassium level of 6.5 and also acidotic with bicarb level of 17. The hyperkalemia was medically treated and he also received 2 L of normal saline bolus. Patient's blood pressure was in the systolic 80s and is much better now. He also had a Galicia catheter placed last night. Patient was started on bicarb drip but is currently on hold due to no IV access. He is nonoliguric. Creatinine is down to 4.23. Potassium level 5.1. He is also noted to be hypercalcemic with a calcium level of 10.6 on admission and 10.9 this morning. Patient denies use of NSAIDs. Denies hematuria or dysuria. Patient states for the last month his appetite has been poor and he has not been eating and drinking much. He is afebrile. Patient states he's been feeling weak and is not able to perform his daily activities recently. Objective - Vital Signs Vital signs: Vital Signs Temp 97.3 F L 06/14/18 08:00 Pulse 60 06/14/18 11:50 Resp 18 06/14/18 04:00 BP 146/79 06/14/18 08:00 Pulse Ox 92 L 06/14/18 08:00 Intake & Output 06/13/18 06/14/18 06/14/18 18:59 06:59 18:59 Intake Total 1080 Output Total 650 1500 Balance 430 -1500 Weight 85.4 kg 85.4 kg Intake: Intake, IV Titration 600 Amount Dextrose 5% in Water 1, 600 000 ml @ 100 mls/hr IV . Q11H VIOLETA with Sodium Bicarb (1 Meq/ml) 100 ml Rx#:[id number] Oral 480 Output: Urine 350 1500 Post Void Residual 300 Other: Voiding Method Urinal Urinal Urinal # Voids 0 On examination is awake alert oriented comfortable HEENT exam no JVP neck is supple no facial asymmetry Lungs are clear to auscultation good air entry bilaterally Heart sounds are unremarkable for any murmur rub gallop Abdomen soft nontender no masses felt Extremity exam was no edema Neurologically awake alert oriented. - Labs CBC & Chem 7: 06/11/18 10:48 06/13/18 08:04 Labs: Microbiology - Last 24 Hours (Table) 06/11/18 10:48 Blood Culture - Preliminary Blood No Growth after 48 hours Assessment and Plan Plan: Assessment: 1. Nonoliguric acute kidney injury mostly prerenal from hypotension along with poor oral intake and diuresis. Creatinine 6.76 on admission and is down to 2.49 yesterday and no labs are available today. Baseline creatinine near 1. 2. Hyperkalemia secondary to acute kidney injury and metabolic acidosis. Improved with medical management. Potassium went up to 5.6 again possibly outlet obstruction. 3. Metabolic acidosis secondary to acute kidney injury. Bicarb improved to 19. No labs available today 4. Hypercalcemia which is likely from the IV calcium he received for hyperkalemia. Unclear etiology. I don't see any calcium/vitamin D supplementation or thiazide diuretics and his home medications. Calcium is 9.8 , PTH is 68 Plan: 1. Check bladder scan for postvoid residual. 2. maintain oral bicarb 650 3 times a day 3. Encouraged oral intake. 4. Repeat electrolytes in the morning.
--- NOTE | 2018-06-14 13:11 | P.PN ---
Subjective Progress Note Date: 06/14/18 This is a pleasant 82-year-old male past medical history significant for ischemic cardiomyopathy, COPD and osteoarthritis. He recently underwent cardiac catheterization and was found to have a total occlusion of the diagonal branch, significant disease in the mid LAD, total occlusion of the OM branch and diffuse severe disease involving the right coronary artery. He underwent stent placement of the diagonal branch by Dr. Bowen. He is now admitted to the hospital with acute renal failure and is being seen by nephrology. We are following him secondary to mildly elevated troponins. At the time of my exam the patient is seen resting comfortably in bed he is lying flat in no acute distress. He denies any symptoms of chest pain, shortness of breath, dizziness or palpitations. Blood pressure 140/70 with a heart rate in the 70s, 92% on. Room air. No laboratory data today. Objective - Vital Signs Vital signs: Vital Signs Temp 97.3 F L 06/14/18 08:00 Pulse 60 06/14/18 11:50 Resp 18 06/14/18 04:00 BP 146/79 06/14/18 08:00 Pulse Ox 92 L 06/14/18 08:00 Intake & Output 06/13/18 06/14/18 06/14/18 18:59 06:59 18:59 Intake Total 1080 Output Total 650 1500 Balance 430 -1500 Weight 85.4 kg 85.4 kg Intake: Intake, IV Titration 600 Amount Dextrose 5% in Water 1, 600 000 ml @ 100 mls/hr IV . Q11H VIOLETA with Sodium Bicarb (1 Meq/ml) 100 ml Rx#:[id number] Oral 480 Output: Urine 350 1500 Post Void Residual 300 Other: Voiding Method Urinal Urinal Urinal # Voids 0 - Exam GENERAL EXAM: Patient is alert and oriented and appears to be in mild distress HEENT: Normocephalic. Normal reaction of pupils, equal size, normal range of extraocular motion. No erythema or exudates in the throat. NECK: No masses, no nuchal rigidity. CHEST: No chest wall deformity. LUNGS: Mild expiratory wheezes HEART: S1 and S2 normal. Distant heart sounds ABDOMEN: No hepatosplenomegaly, normal bowel sounds, no guarding or rigidity. SKIN: No rashes CENTRAL NERVOUS SYSTEM: No focal deficits. EXTREMITIES: No cyanosis, clubbing or edema. - Labs CBC & Chem 7: 06/11/18 10:48 06/13/18 08:04 Labs: Microbiology - Last 24 Hours (Table) 06/11/18 10:48 Blood Culture - Preliminary Blood No Growth after 48 hours Assessment and Plan Plan: Assessment and plan #1 atypical chest pain, resolved #2 coronary artery disease with recent PCI #3 hyperlipidemia #4 acute renal failure #5 ischemic cardio myopathy #6 COPD Plan We will continue the patient's current medications. We will add Lipitor 80 mg daily to his medication regime. Echo revealed normal left ventricular systolic function. DNP note has been reviewed, I agree with a documented findings and plan of care. Patient was seen and examined.
[2018-06-14] MEDS ORDERED: ATORVASTATIN 80 MG TAB PO SCH (21:00)
[2018-06-15] MEDS: IPRATROPIUM-ALBUTEROL 3 ML NEB INHALATION SCH ×3 (02:39→11:39)
[2018-06-15 02:45] VITALS: RESP 16
[2018-06-15 06:00] LABS: Basophils # (A) 0.1 k/uL (0-0.2); Basophils % (A) 1 %; Eosinophils # (A) 0.6 k/uL (0-0.7); Eosinophils % (A) 7 %; HCT 47.3 % (39.0-53.0); HGB 15.3 gm/dL (13.0-17.5); Lymphocytes # (A) 1.5 k/uL (1.0-4.8); Lymphocytes % (A) 20 %; MCH 31.8 pg (25.0-35.0); MCHC 32.4 g/dL (31.0-37.0); MCV 98.1 fL (80.0-100.0); Monocytes # (A) 0.6 k/uL (0-1.0); Monocytes % (A) 8 %; Neutrophils # (A) 4.7 k/uL (1.3-7.7); Neutrophils % (A) 61 %; Platelet Count 161 k/uL (150-450); RBC 4.82 m/uL (4.30-5.90); WBC 7.8 k/uL (3.8-10.6)
[2018-06-15 06:08] LABS: Calcium 10.1 mg/dL (8.4-10.2); Potassium 4.4 mmol/L (3.5-5.1)
[2018-06-15] MEDS: SYMBICORT 80-4.5 MCG INHALER INHALATION SCH (08:08)
[2018-06-15] MEDS: TIMOLOL 0.5% OPHTH DROPS 5 ML BTL LEFT EYE SCH (10:36)
[2018-06-15] MEDS: SODIUM BICARBONATE TAB 650 MG TAB PO SCH (10:36)
[2018-06-15] MEDS: ASPIRIN 81 MG PO SCH (10:36)
[2018-06-15] MEDS: TICAGRELOR 90 MG TAB PO SCH (10:36)
[2018-06-15] MEDS: METOPROLOL TARTRATE 25 MG TAB PO SCH (10:36)
--- NOTE | 2018-06-15 10:47 | CDI ---
Last Revision, June 2017 Documentation Clarification Form Date: 06/15/2018 10:16:56 AM From: Agnieszka Sanderson RN, CCDS Admit Date: 06/11/2018 3:46:00 PM Patient Name: Isac Taylor Visit Number: [id number] Discharge Date: ATTENTION: The Clinical Documentation Specialists (CDI) and [facility] Coding Staff appreciate your assistance in clarifying documentation. Please respond to the clarification below the line at the bottom and electronically sign. The CDI & [facility] Coding staff will review the response and follow-up if needed. Please note: Queries are made part of the Legal Health Record. If you have any questions, please contact the author of this message via ITS. Jasson Dimas MD In your H/P and progress notes, chronic renal failure is documented and further clarification is needed. History/Risk Factors: COPD, White coat syndrome -low blood pressure; Clinical Indicators: Present with complaints of dyspnea, weakness, vomiting and no appetite. On admission: BUN 104, CR6.76, GFR 7 Current BUN 45, CR 1.74 GFR 36 Patients Baseline: CR 1 Treatment: IV Fluids Sodium Bicarbonate IV and tabs Encouraged oral intake Monitor electrolytes In order to capture the severity of condition, please further clarify if the condition signifies: CKD Stage 1 (GFR > 90) CKD Stage 2 (GFR 60-89) CKD Stage 3 (GFR 30-59) CKD Stage 4 (GFR 15-29) CKD Stage 5 (GFR <15) Other, please specify Unable to determine Please document as an addendum to your discharge summary in order to capture severity of illness and risk of mortality. Include clinical findings that support your diagnosis. MTDD
[2018-06-15 11:11] VITALS: TEMP 97.4
--- NOTE | 2018-06-15 11:41 | P.PN ---
Subjective Progress Note Date: 06/15/18 This is a pleasant 82-year-old male past medical history significant for ischemic cardiomyopathy, COPD and osteoarthritis. He recently underwent cardiac catheterization and was found to have a total occlusion of the diagonal branch, significant disease in the mid LAD, total occlusion of the OM branch and diffuse severe disease involving the right coronary artery. He underwent stent placement of the diagonal branch by Dr. Bowen. He is now admitted to the hospital with acute renal failure and is being seen by nephrology. We are following him secondary to mildly elevated troponins. At the time of my exam the patient is seen resting comfortably in bed he is lying flat in no acute distress. He denies any symptoms of chest pain, shortness of breath, dizziness or palpitations. Blood pressure 140/70 with a heart rate in the 70s, 92% on. Room air. No laboratory data today. 06/15/2018 Patient was seen and examined this morning, denies any chest discomfort, breathing overall is stable. Sodium 142, potassium 4.4, BUN 45, creatinine 1.7 today. Objective - Vital Signs Vital signs: Vital Signs Temp 97.4 F L 06/15/18 08:00 Pulse 68 06/15/18 08:19 Resp 16 06/15/18 03:36 BP 135/84 06/15/18 08:00 Pulse Ox 95 06/15/18 08:00 Intake & Output 06/14/18 06/15/18 06/15/18 18:59 06:59 18:59 Intake Total 100 20 0 Output Total 50 Balance 100 -30 0 Weight 83.4 kg Intake: IV 20 0.9 20 Oral 100 0 Output: Urine 50 Other: Voiding Method Urinal Urinal - Exam GENERAL EXAM: Patient is alert and oriented and appears to be in mild distress HEENT: Normocephalic. Normal reaction of pupils, equal size, normal range of extraocular motion. No erythema or exudates in the throat. NECK: No masses, no nuchal rigidity. CHEST: No chest wall deformity. LUNGS: Mild expiratory wheezes HEART: S1 and S2 normal. Distant heart sounds ABDOMEN: No hepatosplenomegaly, normal bowel sounds, no guarding or rigidity. SKIN: No rashes CENTRAL NERVOUS SYSTEM: No focal deficits. EXTREMITIES: No cyanosis, clubbing or edema. - Labs CBC & Chem 7: 06/15/18 05:25 06/15/18 05:25 Labs: Abnormal Lab Results - Last 24 Hours (Table) 06/15/18 Range/Units 05:25 Chloride 109 H (98-107) mmol/L BUN 45 H (9-20) mg/dL Creatinine 1.74 H (0.66-1.25) mg/dL Glucose 124 H (74-99) mg/dL Microbiology - Last 24 Hours (Table) 06/11/18 10:48 Blood Culture - Preliminary Blood No Growth after 72 hours Assessment and Plan Plan: Assessment and plan #1 atypical chest pain, resolved #2 coronary artery disease with recent PCI #3 hyperlipidemia #4 acute renal failure #5 ischemic cardio myopathy #6 COPD Plan We will continue the patient's current medications. Renal function is improving. We will follow him along with you now on an as-needed basis only, please don't hesitate to call with any questions. DNP note has been reviewed, I agree with a documented findings and plan of care. Patient was seen and examined.
[2018-06-15] MEDS ORDERED: ERGOCALCIFEROL 50,000 UNIT CAP PO SCH (15:00)
[2018-06-15 15:01] VITALS: BP 153/74; PULSE 60
--- NOTE | 2018-06-15 19:13 | PN ---
PROGRESS NOTE Patient is seen for followup for acute kidney injury. Patient's renal function has improved with creatinine down from 4.23 to 1.74 today. The patient has been voiding. PHYSICAL EXAMINATION: This morning blood pressure was 135/84, heart rate 68 per minute. He is afebrile. Examination of the heart: S1, S2. Examination of the lungs: Bilateral breath sounds are heard. Abdomen is soft, nontender. Exam of lower extremities shows no significant edema. LABORATORY DATA: The labs show sodium 142, potassium 4.4, chloride 109, BUN 45, serum creatinine 1.74, hemoglobin 15.3 g/dL. ASSESSMENT: 1. Acute kidney injury, nonoliguric, currently improved. The patient is not on any IV fluids or diuretics. 2. Metabolic acidosis, maintained on oral sodium bicarb and improved. 3. Hypercalcemia, now improved. Vitamin D level was low. Patient should be maintained on vitamin D supplementation. He needs to avoid calcium supplements. PLAN: Vitamin D2 32990 units once a week. Avoid any calcium supplements and repeat labs in 1- 2 weeks as outpatient. MMODL / IJN: [id number] /
--- NOTE | 2018-06-15 19:53 | PN ---
PROGRESS NOTE DATE OF SERVICE: 06/14/2018 CHIEF COMPLAINT: Renal failure-improving. HISTORY OF PRESENT ILLNESS: This gentleman is doing fairly well. His appetite is returning. He has not had any shortness of breath or chest pain. PHYSICAL EXAM: Chest demonstrates very poor breath sounds due to COPD. Otherwise clear. Cardiac exam is unremarkable. Abdomen is soft, nontender. IMPRESSION: 1. Acute renal failure. 2. Dehydration. 3. Congestive heart failure. 4. Recent coronary artery disease with stenting. PLAN: Probably home tomorrow if his renal function continues to improve. MMODL / IJN: [id number] /
--- NOTE | 2018-06-16 00:43 | DS ---
DISCHARGE SUMMARY CHIEF COMPLAINT: Weakness, coronary artery disease and congestive heart failure. HISTORY OF PRESENT ILLNESS AND PHYSICAL EXAM: Details of this man's history and physical can be found in the initial workup. LABORATORY STUDIES: While he was in the hospital, he had laboratory studies, details which can be found in the laboratory section of his chart. COURSE IN HOSPITAL: After admission, he was advised bedrest, started on intravenous fluids and seen by Nephrology. With rehydration, his BUN and creatinine started to come down. He felt much better. Appetite returned and he became much less weak and short of breath. It was felt that he was stable enough that he could go home on the third. He will be sent home with home care and he will be seen in the office in several days. FINAL DIAGNOSES: 1. Acute renal failure. 2. Chronic renal failure. 3. Prerenal azotemia. 4. Dehydration. 5. Coronary artery disease status post stenting. 6. Chronic obstructive pulmonary disease. OPERATIONS: None. CONSULTATIONS: Cardiology and Nephrology. He is improved. MMODL / IJN: [id number] /
--- NOTE | 2018-06-18 19:56 | MISC ---
MISCELLANOUS REPORT GFR was 36, which makes him stage IIIB. MMCAITLIN / ESTEAFNY: [id number] /
== END 2018-06-15 15:04 | disposition home health service (06) | DRG 683 ==
LOC: EC 10:23 → 3SCARD 15:46
PROVIDERS: ADMIT Family Medicine; ATTEND Family Medicine
DX: N17.9 Acute kidney failure, unspecified (principal); E87.2 Acidosis; I50.22 Chronic systolic (congestive) heart failure; N39.0 Urinary tract infection, site not specified; N13.8 Other obstructive and reflux uropathy; N18.3 Chronic kidney disease, stage 3 (moderate); I95.9 Hypotension, unspecified; E86.0 Dehydration; E87.5 Hyperkalemia; J44.9 Chronic obstructive pulmonary disease, unspecified; N31.9 Neuromuscular dysfunction of bladder, unspecified; E83.52 Hypercalcemia; I25.5 Ischemic cardiomyopathy; F17.210 Nicotine dependence, cigarettes, uncomplicated; E78.5 Hyperlipidemia, unspecified; H54.62 Unqualified visual loss, left eye, normal vision right eye; I25.10 Atherosclerotic heart disease of native coronary artery without angina pectoris; M17.0 Bilateral primary osteoarthritis of knee; R07.89 Other chest pain; R73.9 Hyperglycemia, unspecified; R77.9 Abnormality of plasma protein, unspecified; R11.2 Nausea with vomiting, unspecified; H40.9 Unspecified glaucoma; I25.2 Old myocardial infarction; T50.2X5A Adverse effect of carbonic-anhydrase inhibitors, benzothiadiazides and other diuretics, initial encounter; Z79.02 Long term (current) use of antithrombotics/antiplatelets; Z79.82 Long term (current) use of aspirin; Z79.51 Long term (current) use of inhaled steroids; Z95.5 Presence of coronary angioplasty implant and graft; Z79.899 Other long term (current) drug therapy; Z88.0 Allergy status to penicillin; Z91.011 Allergy to milk products; Z87.01 Personal history of pneumonia (recurrent); Z91.81 History of falling; Z94.89 Other transplanted organ and tissue status; Z82.49 Family history of ischemic heart disease and other diseases of the circulatory system
CPT/HCPCS: 36415; 71046; 76770; 80048; 80053; 81001; 82306; 82550; 82553; 83605; 83735; 83880; 83970; 84100; 84132; 84484; 85025; 85610; 85730; 87040; 93005; 93306; 94640; 96361; 96365; 96366; 96375; 99291

== ENCOUNTER → 2018-12-08 | Day surgery (SDC) | payer MEDICARE, OTHER ==
[2018-12-04 09:51] VITALS: BMI 25.0
[~2018-12-08] MED LIST changes: +ALBUTEROL NEBULIZED 2.5 MG/3 ML INHALATION PRN; +ALLOPURINOL 100 MG TAB PO SCH; +ALPRAZolam 0.25 MG TAB PO PRN; +ALPRAZolam 0.5 MG TAB PO PRN; +ASPIRIN 325 MG TAB PO ONE; +ASPIRIN 81 MG ONE; +ASPIRIN 81 MG PO SCH; +ATORVASTATIN 80 MG TAB PO ONE; +ATORVASTATIN 80 MG TAB PO SCH; +CARVEDILOL 3.125 MG TAB PO SCH; +FAMOTIDINE 20 MG TAB PO PRN; -FAMOTIDINE 20 MG/2 ML VIAL IV STA; +FUROSEMIDE 40 MG TAB PO SCH; +HYDROcodone/APAP 7.5-325MG 1 EACH TAB PO PRN; +IOPAMIDOL-370 100ML BTL INJ ONE; +LIDOCAINE 1% INJ 10MG/ML (20 ML MDV) ONE; +LIDOCAINE 1% INJ 10MG/ML (20 ML MDV) SQ ONE; -MORPHINE SULFATE 2 MG/ML SYRINGE IVP STA; +NITROGLYCERIN SL TABS 0.4 MG TAB SUBLINGUAL PRN; +RX INFO: IV CONTRAST WAS GIVEN 1 EACH MISC MISCELLANE PRN; +SODIUM BICARBONATE TAB 650 MG TAB PO SCH; +SODIUM CHLORIDE 0.9% 1,000 ML IV SCH; +SODIUM CHLORIDE 0.9% 1,000 ML in EMPTY BAG 1 BAG IV ONE; +TICAGRELOR 90 MG TAB PO SCH; +TIMOLOL 0.5% OPHTH DROPS 5 ML BTL LEFT EYE SCH; +fentaNYL (PF) 50 MCG/ML 2 ML AMP IV ONE; +fentaNYL (PF) 50 MCG/ML 2 ML AMP ONE
[2018-12-08 07:09] VITALS: RESP 18; TEMP 97.9
[2018-12-08 07:27] LABS: Basophils # (A) 0.1 k/uL (0-0.2); Basophils % (A) 1 %; Eosinophils # (A) 0.6 k/uL (0-0.7); Eosinophils % (A) 5 %; HCT 40.3 % (39.0-53.0); HGB 12.8 gm/dL (13.0-17.5); Lymphocytes # (A) 2.1 k/uL (1.0-4.8); Lymphocytes % (A) 17 %; MCH 31.8 pg (25.0-35.0); MCHC 31.8 g/dL (31.0-37.0); MCV 100.2 fL (80.0-100.0); Macrocytosis Slight; Mean Platelet Volume 8.1; Monocytes # (A) 0.8 k/uL (0-1.0); Monocytes % (A) 7 %; Neutrophils # (A) 8.4 k/uL (1.3-7.7); Neutrophils % (A) 67 %; Platelet Count 373 k/uL (150-450); RBC 4.02 m/uL (4.30-5.90); RDW 15.5 % (11.5-15.5); WBC 12.5 k/uL (3.8-10.6)
[2018-12-08 07:30] LABS: Potassium 4.7 mmol/L (3.5-5.1)
--- NOTE | 2018-12-08 08:30 | CC ---
CARDIAC CATHETERIZATION REPORT Mr. Taylor is an 83-year-old male with known history of coronary artery disease status post percutaneous revascularization in May 2018, who presented with symptoms of progressive dyspnea and had an abnormal myocardial perfusion imaging. In view of that, recommendation was made regarding cardiac catheterization. The procedure as well as the risks and complications were discussed with the patient who is in full understanding and agreement. PROCEDURE: Patient was brought to liaison inspection laboratory assistant in a fasting semi-sedated state after receiving fentanyl and Benadryl and achieving moderate conscious sedated state. Using Xylocaine anesthesia in the Seldinger technique, a 6-Ugandan sheath was introduced in the right femoral artery. Selective right and left coronary angiography was performed using 6- Ugandan 4 bend right and left Kathleen catheter. Multiple views of the coronary artery including hemiaxial views were obtained. Following that, a 6-Ugandan tight pigtail catheter was introduced in the left ventricle and a 30-degree IRAHETA view of the left ventricle was obtained. Following that, catheter and sheaths were removed. Hemostasis was obtained with deployment of an Angio-Seal. There was no immediate complication. Patient was returned to his room in stable condition. FINDINGS: FLUOROSCOPY: There was calcification involving the left anterior descending artery next. LEFT MAIN: This is a large-sized vessel bifurcating in left circumflex, left anterior descending artery. Left main coronary artery has no evidence of high-grade stenosis. LEFT ANTERIOR DESCENDING ARTERY: This is a large-sized vessel giving rise to a large proximal diagonal branch. The left anterior descending artery in the mid segment has a stent that is patent. Has a 20% to 30% proximal disease. The rest of the vessel has no high-grade stenosis. The diagonal branch that has been stented is patent without any evidence of obstructive disease. LEFT CIRCUMFLEX: This is a nondominant vessel giving rise to 2 obtuse marginal branches. The first obtuse marginal branch is totally occluded at the takeoff. The second obtuse marginal branch is small caliber and has diffuse intimal disease up to 80% to 90%. RIGHT CORONARY ARTERY: This is a large dominant vessel bifurcating distally PDA and posterolateral segment and branches. The right coronary artery in mid and distal segment has diffuse intimal disease with area of stenosis up to 50%. There is an aneurysmal formation prior to the bifurcation. The rest of the vessel has no high-grade stenosis. LEFT VENTRICULOGRAM: Left ventriculogram is performed in 30-degree IRAHETA view and revealed normal left ventricular size and systolic function. Ejection fraction is 60%. There was no significant mitral regurgitation. HEMODYNAMICS: There was no gradient across the aortic valve. The left ventricular end- diastolic pressure was 8 to 10 mmHg. CONCLUSION: 1. Patent stent in the LAD and the diagonal branch with no evidence of significant restenosis. 2. Chronic occluded first obtuse marginal branch with diffuse disease in the second obtuse marginal branch that is small vessel. 3. Diffuse disease in the right coronary artery without any evidence of high-grade stenosis and with aneurysmal formation distally. 4. Normal left ventricular size and systolic function. RECOMMENDATION: In view of finding anatomy, I recommend continue medical therapy with aggressive coronary risk modifications that has been initiated. Those findings and recommendation were discussed with the patient and his family and they are in full understanding and agreement. Duration of procedure is 18 minutes. NILSA / ESTEFANY: [id number] /
[2018-12-08 14:05] VITALS: BP 124/62; PULSE 59
== END | disposition home or self-care (01) ==
LOC: CATHCVL 05:37
PROVIDERS: ATTEND Internal Medicine Interventional Cardiology
DX: I25.10 Atherosclerotic heart disease of native coronary artery without angina pectoris (principal); I25.82 Chronic total occlusion of coronary artery; R94.39 Abnormal result of other cardiovascular function study; I25.5 Ischemic cardiomyopathy; I10 Essential (primary) hypertension; E78.2 Mixed hyperlipidemia; Z95.5 Presence of coronary angioplasty implant and graft; Z79.82 Long term (current) use of aspirin; Z79.899 Other long term (current) drug therapy; Z87.891 Personal history of nicotine dependence
CPT/HCPCS: 93458; 80048; 85025; C1760; C1769 ×2; C1894; J2001; J3010; Q9967

== ENCOUNTER 2019-01-01 08:16 | Emergency (ER) | payer MEDICARE, OTHER ==
[2019-01-01 08:23] VITALS: RESP 18
[2019-01-01] MEDS ORDERED: MORPHINE SULFATE 4 MG/ML SYRINGE IM STA (08:28)
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
--- NOTE | 2019-01-01 09:33 | XR ---
Right foot, right leg, right ankle HISTORY: Trauma and pain 3 views of the right ankle, 2 views of the right foot, 2 views of the right leg submitted Soft tissue swelling is noted at the level of the ankle. Bone mineralization is reduced. Alignment is maintained. There is a plantar cranial spur present. Small punctate metallic densities are present d orsal to the mid foot which may be calcification, difficult to exclude chip fracture. There is no dis location. There is a plantar calcaneal spur. Some arthropathy noted within the foot, intertarsal join ts. IMPRESSION: Soft tissue injury. No evident dislocation. No definite fracture. Osteopenia.
[2019-01-01] MEDS ORDERED: ACET/COD 300 MG/30 MG STARTER PACK 6 TAB BTL PO STA (09:38)
[2019-01-01 10:21] VITALS: BP 124/83; PULSE 82; TEMP 98.8
== END 2019-01-01 10:21 | disposition home or self-care (01) ==
LOC: EC 08:16
DX: S93.401A Sprain of unspecified ligament of right ankle, initial encounter (principal); I10 Essential (primary) hypertension; Z79.02 Long term (current) use of antithrombotics/antiplatelets; Z79.899 Other long term (current) drug therapy; Z88.0 Allergy status to penicillin; Z91.011 Allergy to milk products; Z85.51 Personal history of malignant neoplasm of bladder; Z95.5 Presence of coronary angioplasty implant and graft; Z87.891 Personal history of nicotine dependence; W18.40XA Slipping, tripping and stumbling without falling, unspecified, initial encounter
CPT/HCPCS: 73590; 73610; 73620; 99284; 29515; J2270

== ENCOUNTER 2020-04-12 15:14 | Inpatient (IN) | payer MEDICARE, OTHER ==
[2020-04-12] MEDS ORDERED: MORPHINE SULFATE 4 MG/ML SYRINGE IV STA (15:32)
[2020-04-12] MEDS ORDERED: SODIUM CHLORIDE 0.9% 1,000 ML IV STA (15:32)
[2020-04-12] MEDS ORDERED: LORazepam 2 MG/ML INJ IV STA (15:49)
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
[2020-04-12 16:21] LABS: Basophils # (A) 0.1 k/uL (0-0.2); Basophils % (A) 0 %; Eosinophils # (A) 0.6 k/uL (0-0.7); Eosinophils % (A) 4 %; HCT 40.3 % (39.0-53.0); HGB 13.1 gm/dL (13.0-17.5); Lymphocytes % (A) 13 %; MCH 32.3 pg (25.0-35.0); MCHC 32.5 g/dL (31.0-37.0); MCV 99.4 fL (80.0-100.0); Mean Platelet Volume 8.5; Monocytes # (A) 0.8 k/uL (0-1.0); Monocytes % (A) 5 %; Neutrophils # (A) 11.2 k/uL (1.3-7.7); Neutrophils % (A) 75 %; Platelet Count 231 k/uL (150-450); RBC 4.05 m/uL (4.30-5.90)
[2020-04-12 16:30] LABS: Albumin 3.6 g/dL (3.5-5.0); Calcium 9.1 mg/dL (8.4-10.2); Potassium 3.7 mmol/L (3.5-5.1); Total Bilirubin 0.4 mg/dL (0.2-1.3); Total Protein 6.6 g/dL (6.3-8.2)
[2020-04-12 16:57] LABS: Partial Thromboplastin Time 21.5 sec (22.0-30.0)
[2020-04-12] MEDS ORDERED: LORazepam 2 MG/ML INJ IV PRN (18:03)
[2020-04-12] MEDS ORDERED: cefTRIAXone IN SWFI 1,000 MG/10 ML SYRINGE IVP STA (18:03)
[2020-04-12] MEDS ORDERED: MORPHINE SULFATE 4 MG/ML SYRINGE IVP PRN (18:03)
[2020-04-12] MEDS ORDERED: hydrALAZINE HCL 20 MG/ML 1 ML VIAL IVP STA (18:05)
[2020-04-12] MEDS ORDERED: carvediloL 12.5 MG TAB PO STA (18:06)
--- NOTE | 2020-04-12 18:47 | XR ---
EXAMINATION TYPE: XR abdomen acute w cxr DATE OF EXAM: 04/12/2020 COMPARISON: Chest x-ray 06/11/2018 HISTORY: Abdominal pain TECHNIQUE: 4 views FINDINGS: There is some linear density at the left lung base. The other lung saunders are clear. There is no heart failure. Thoracic aorta is atheromatous. There are no hilar masses. There are chest leads . There is no sign of intestinal obstruction or pneumoperitoneum. Fecal pattern is normal. There are a few tiny calcifications over both kidneys. There are clips from cholecystectomy. I see no evidence of abdominal mass. IMPRESSION: There is some left lower lobe pneumonia and atelectasis that appears new compared to old chest x-ray. Nonacute abdomen. Renal calculi cannot be excluded.
[2020-04-12 19:38] LABS: RBC,Urine >182 /hpf (0-5); WBC,Urine >182 /hpf (0-5)
[2020-04-12] MEDS ORDERED: ONDANSETRON 4 MG/2 ML VIAL IVP PRN (22:04)
[2020-04-12] MEDS ORDERED: IPRATROPIUM-ALBUTEROL 3 ML NEB INHALATION PRN (22:08)
[2020-04-12] MEDS: HYDROmorphone 1 MG/ML 1 ML SYRINGE IVP PRN (22:31)
[2020-04-12] MEDS: DEXTROSE 5%-0.45% NACL 1,000 ML IV SCH (22:31)
[2020-04-12] MEDS: OXYBUTYNIN CHLORIDE 5 MG TAB PO SCH (22:58)
[2020-04-13] MEDS ORDERED: ONDANSETRON 4 MG/2 ML VIAL IVP PRN (02:02)
[2020-04-13 06:44] LABS: Basophils % (A) 0 %; Eosinophils # (A) 0.3 k/uL (0-0.7); Eosinophils % (A) 2 %; HCT 38.2 % (39.0-53.0); HGB 12.2 gm/dL (13.0-17.5); Lymphocytes # (A) 2.4 k/uL (1.0-4.8); Lymphocytes % (A) 12 %; MCV 99.9 fL (80.0-100.0); Macrocytosis Slight; Mean Platelet Volume 8.2; Monocytes # (A) 1.2 k/uL (0-1.0); Monocytes % (A) 6 %; Neutrophils # (A) 15.4 k/uL (1.3-7.7); Neutrophils % (A) 77 %; Platelet Count 257 k/uL (150-450); RBC 3.82 m/uL (4.30-5.90); RDW 14.5 % (11.5-15.5); WBC 19.9 k/uL (3.8-10.6)
[2020-04-13] MEDS: IPRATROPIUM-ALBUTEROL 3 ML NEB INHALATION SCH ×4 (07:20→19:55)
[2020-04-13] MEDS ORDERED: carvediloL 3.125 MG TAB PO SCH (07:30)
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
[2020-04-13] MEDS ORDERED: IPRATROPIUM-ALBUTEROL 3 ML NEB INHALATION SCH (08:00)
[2020-04-13] MEDS: FAMOTIDINE 20 MG TAB PO SCH (08:59)
[2020-04-13] MEDS: allopurinoL 300 MG TAB PO SCH (08:59)
[2020-04-13] MEDS: OXYBUTYNIN CHLORIDE 5 MG TAB PO SCH ×2 (08:59→20:02)
[2020-04-13 09:50] LABS: African American GFR (CKD) 64.9 (60.0-200.0); Albumin 3.5 g/dL (3.80-4.90); Albumin/Globulin Ratio 1.52 (1.60-3.17); Anion Gap 8.8 mmol/L (4.00-12.00); BUN/Creat Ratio 15.83 Ratio (12.00-20.00); Calcium 8.6 mg/dL (8.7-10.3); Carbon Dioxide 23.2 mmol/L (21.6-31.8); Globulin 2.3 g/dL (1.6-3.3); Potassium 4.7 mmol/L (3.5-5.5); Total Bilirubin 0.2 mg/dL (0.2-1.2); Total Protein 5.8 g/dL (6.2-8.2)
[2020-04-13] MEDS: HYDROmorphone 1 MG/ML 1 ML SYRINGE IVP PRN (13:40)
[2020-04-13 15:01] VITALS: BMI 27.1
[2020-04-13] MEDS: ATORVASTATIN 80 MG TAB PO SCH (20:02)
[2020-04-13 20:05] LABS: Basophils % (A) 0 %; Eosinophils # (A) 0.6 k/uL (0-0.7); Eosinophils % (A) 4 %; HCT 34.4 % (39.0-53.0); HGB 11.3 gm/dL (13.0-17.5); Lymphocytes # (A) 1.9 k/uL (1.0-4.8); Lymphocytes % (A) 12 %; MCH 32.6 pg (25.0-35.0); MCHC 32.8 g/dL (31.0-37.0); MCV 99.4 fL (80.0-100.0); Macrocytosis Slight; Mean Platelet Volume 9.8; Monocytes # (A) 1.3 k/uL (0-1.0); Monocytes % (A) 8 %; Neutrophils # (A) 11.8 k/uL (1.3-7.7); Neutrophils % (A) 74 %; Platelet Count 219 k/uL (150-450); RBC 3.46 m/uL (4.30-5.90); RDW 14.2 % (11.5-15.5); WBC 15.8 k/uL (3.8-10.6)
--- NOTE | 2020-04-14 03:16 | HP ---
HISTORY AND PHYSICAL CHIEF COMPLAINT: Bladder pain and hematuria. HISTORY OF PRESENT ILLNESS: This is another admission for this 84-year-old with congestive heart failure and COPD. Several days ago he had a surgical procedure for what was thought to be a neoplasm of the bladder. Since then he has been having a lot of pain in the bladder area and in the penis with continued significant bleeding. He came into the hospital because of these issues and is going to be seen by Urology. REVIEW OF SYSTEMS: He has had no shortness of breath, syncope, palpitations, chest pain, abdominal pain, melena, hematochezia, jaundice, etc. Past medical history, family history and personal and social histories reveal he is allergic to PENICILLIN. He takes Vicodin for the pain and he is on Pepcid 20 mg once a day, Lipitor 80 once a day, vitamin D 50,000 units a month, allopurinol 300 mg once a day, Coreg 3.125 twice a day, 81 mg of aspirin, updrafts with DuoNeb, Lasix 40 mg once a day. He used to smoke heavily but does not any longer. He does drink alcohol several times during the week. PHYSICAL EXAMINATION: Blood pressure is 130/70 with a pulse of 81, respirations of 18 and he is afebrile. In general, he appeared to be well developed and fairly well preserved for his age. Skin color is normal. Skin is warm, dry. Lymph nodes are not enlarged. Head, ears, eyes, nose, mouth, and throat were normal. Neck veins are not distended. Thyroid is not enlarged. Chest is clear. Cardiac exam demonstrates normal sinus rhythm. No murmurs or extra sounds. Abdomen is soft and is a little bit tender over the bladder. Genitalia reveal presence of a [place] catheter with bright red blood in the tube. Extremities are normal. Neurologically, he is intact. IMPRESSION: 1. Postoperative bladder and penile pain with hematuria. 2. Carcinoma of the bladder. 3. Chronic obstructive pulmonary disease. 4. Congestive heart failure. PLAN: 1. Bed rest. 2. IV fluids. 3. Follow hemoglobins. 4. Urology consult. MMODL / IJN: [id number] /
--- NOTE | 2020-04-14 03:31 | PN ---
PROGRESS NOTE DATE OF SERVICE: 04/13/2020 CHIEF COMPLAINT: Hematuria and bladder pain. HISTORY OF PRESENT ILLNESS: This gentleman is still having a lot of pain and doing a lot of bleeding. He has had no fever or chills. There is bright red blood in the [place] collection tube. PHYSICAL EXAMINATION: Chest is clear. Cardiac exam is normal. Abdomen is soft, nontender. IMPRESSION: Carcinoma of the bladder with postoperative bladder and penile pain and hemorrhage. PLAN: 1. Repeat laboratory studies. 2. Await recommendations of Urology. MMODL / IJN: [id number] /
--- NOTE | 2020-04-14 07:21 | P.PN ---
Subjective Progress Note Date: 04/14/20 The patient is in the hospital with gross hematuria after a transurethral resection of bladder tumor couple weeks ago. Most likely a scab fell off any blood secondarily. There is still old blood in the catheter but no more obstructing clots. He he feels well, his abdomen is soft. His vital signs are stable. We'll continue with the catheter and when the urine clears probably get the catheter out. Patient understands this. Vital signs are stable Objective - Vital Signs Vital signs: Vital Signs Temp 97.9 F 04/14/20 05:00 Pulse 61 04/14/20 05:00 Resp 18 04/14/20 05:00 BP 114/57 04/14/20 05:00 Pulse Ox 98 04/14/20 05:00 Intake & Output 04/13/20 04/14/20 04/14/20 18:59 06:59 18:59 Output Total 650 100 Balance -650 -100 Weight 90.718 kg Output: Urine 650 100 Coude 650 Other: Voiding Method Indwelling Catheter Indwelling Catheter - Labs CBC & Chem 7: 04/13/20 18:40 04/13/20 06:18 Labs: Abnormal Lab Results - Last 24 Hours (Table) 04/13/20 04/13/20 Range/Units 06:18 18:40 WBC 15.8 H (3.8-10.6) k/uL RBC 3.46 L (4.30-5.90) m/uL Hgb 11.3 L (13.0-17.5) gm/dL Hct 34.4 L (39.0-53.0) % Neutrophils # 11.8 H (1.3-7.7) k/uL Monocytes # 1.3 H (0-1.0) k/uL Est GFR (CKD-EPI)NonAf 56.0 L (60.0-200.0) Glucose 123 H (70-110) mg/dL Calcium 8.6 L (8.7-10.3) mg/dL Alkaline Phosphatase 135 H (41-126) U/L Total Protein 5.8 L (6.2-8.2) g/dL Albumin 3.50 L (3.80-4.90) g/dL Albumin/Globulin Ratio 1.52 L (1.60-3.17) g/dL Microbiology - Last 24 Hours (Table) 04/12/20 18:38 Urine Culture - Final Urine,Voided
[2020-04-14] MEDS: IPRATROPIUM-ALBUTEROL 3 ML NEB INHALATION SCH ×4 (07:29→19:18)
[2020-04-14] MEDS: FAMOTIDINE 20 MG TAB PO SCH (07:55)
[2020-04-14] MEDS: allopurinoL 300 MG TAB PO SCH (07:55)
[2020-04-14] MEDS: OXYBUTYNIN CHLORIDE 5 MG TAB PO SCH ×2 (07:55→20:27)
[2020-04-14] MEDS: DEXTROSE 5%-0.45% NACL 1,000 ML IV SCH ×3 (11:25→16:50)
[2020-04-14] MEDS ORDERED: LACTATED RINGERS 1,000 ML IV ONE (14:35)
[2020-04-14 14:53] LABS: Glucose,Whole Blood 111 mg/dL (75-99)
--- NOTE | 2020-04-14 15:13 | P.PN ---
Progress Note - Text Progress Note Date: 04/14/20 The patient continues to have gross hematuria which has required periodic irrigation of his bladder. His hemoglobin has fallen to 11.3. Cystoscopy under anesthesia with probable cautery of a bleeding vessel is planned.
[2020-04-14] MEDS ORDERED: PROPOFOL 10 MG/ML 20 ML VIAL IV ONE (15:26)
[2020-04-14] MEDS ORDERED: LIDOCAINE 1% INJ 10MG/ML (20 ML MDV) ONE (15:26)
[2020-04-14] MEDS ORDERED: fentaNYL (PF) 50 MCG/ML 2 ML AMP ONE (15:26)
[2020-04-14] MEDS ORDERED: MIDAZOLAM 2 MG/2 ML VIAL ONE (15:26)
--- NOTE | 2020-04-14 16:13 | P.OP ---
Date of Procedure: 04/14/20 Preoperative Diagnosis: Gross hematuria Postoperative Diagnosis: Gross hematuria secondary to bleeding from previous TUR bladder tumor Procedure(s) Performed: Cystoscopy with evacuation of blood clots and cautery of bleeding vessels Anesthesia: SERGEYA Surgeon: Valeriano Hines Estimated Blood Loss (ml): 0 Pathology: none sent Condition: stable Disposition: PACU Indications for Procedure: The patient is an 84-year-old male who underwent transurethral resection of 2 bladder tumors 2 weeks ago. He removed his catheter last week and his urine was clear until 2 days ago when he abruptly developed gross hematuria and abdominal pain. He was admitted and a catheter was inserted which continues to drain grossly bloody urine with clots. Cystoscopy under anesthesia with evacuation of blood clots and cautery is planned Description of Procedure: The patient was taken gapping suite where adequate general anesthesia via LMA was instituted. He was placed in the dorsal lithotomy position with his legs suspended from padded Vamshi stirrups. His [place] catheter was removed. The genitalia was prepped with Betadine soap, painted with Betadine solution and draped in sterile fashion. The penile and prostatic urethra were traversed under direct vision using the 21-Mohawk cystoscope sheath and 30 lens. The anterior urethra was unremarkable. Prostatic urethra showed evidence of moderate lateral lobe enlargement. No urothelial abnormalities were noted. The bladder was examined. On the floor the bladder was a clot which made visualization of the floor suboptimal. A clot was removed from the bladder using the Elic evacuator. The clot measured 50-60 mL in size. The bladder was reexamined. On the posterior bladder wall several small blood vessels were oozing. These were controlled using electrocautery. There was an eschar present on the right lateral wall corresponding to the previous site of bladder tumor resection. No actual oozing was present in that location. There was some minimal erythema on the left lateral wall but no active bleeding. The area of bleeding appeared to be in the area immediately posteriorly were could've been irritated from his [place] catheter. Entire bladder was examined and there was no other evidence of bleeding or tumor. It was elected to not leave a catheter in place. The cystoscope was removed and the procedure was terminated. Patient tolerated procedure well and left the operative room awake and in satisfactory condition. Blood loss was negligible. The patient will be discharged in the morning provided he is voiding relatively clear urine. He will be seen back in follow-up in approximately 2 weeks.
--- NOTE | 2020-04-14 19:29 | PN ---
PROGRESS NOTE CHIEF COMPLAINT: Postoperative hematuria. HISTORY OF PRESENT ILLNESS: This gentleman is still having a lot of discomfort and still has a fairly rapid bleeding with gross hematuria. He is going to the operating room today. REVIEW OF SYSTEMS: He has had no shortness of breath, chest pain, abdominal pain, etc. PHYSICAL EXAMINATION: Chest is clear. Cardiac exam is normal. Abdomen is soft, nontender. The urine is in the [place] catheter. Drainage tube is very bloody. IMPRESSION: 1. Postoperative bleeding from removal of bladder tumor. 2. Congestive heart failure. 3. Chronic obstructive pulmonary disease. PLAN: He will be going to the operating room today for cautery. MMODL / SUDHAKARN: [id number] /
[2020-04-14] MEDS: ATORVASTATIN 80 MG TAB PO SCH (20:27)
[2020-04-14 21:01] VITALS: RESP 18
[2020-04-15 04:12] VITALS: BP 136/69; PULSE 60; TEMP 97.6
[2020-04-15] MEDS: DEXTROSE 5%-0.45% NACL 1,000 ML IV SCH (05:50)
[2020-04-15] MEDS: IPRATROPIUM-ALBUTEROL 3 ML NEB INHALATION SCH ×2 (07:27→11:26)
[2020-04-15] MEDS: FAMOTIDINE 20 MG TAB PO SCH (08:00)
[2020-04-15] MEDS: allopurinoL 300 MG TAB PO SCH (08:00)
[2020-04-15] MEDS: OXYBUTYNIN CHLORIDE 5 MG TAB PO SCH (08:00)
--- NOTE | 2020-04-15 09:55 | P.PN ---
Subjective Progress Note Date: 04/15/20 The patient underwent cystoscopy evacuation of clot and fulguration of small bleeding yesterday. The catheter remains out. He is status post TURBT a couple of weeks ago. Since the procedure is been voiding well. His urine has cleared nicely. From urologic standpoint he can be discharged home. He should follow- up with in one week. Objective - Vital Signs Vital signs: Vital Signs Temp 97.6 F 04/15/20 04:10 Pulse 60 04/15/20 08:00 Resp 18 04/15/20 08:00 BP 136/69 04/15/20 04:10 Pulse Ox 98 04/15/20 07:26 Intake & Output 04/14/20 04/15/20 04/15/20 18:59 06:59 18:59 Intake Total 1040 1680 Output Total 1000 700 300 Balance 40 980 -300 Intake: IV 400 Intake, IV Titration 640 960 Amount Dextrose 5%-0.45% NaCl 1, 640 960 000 ml @ 80 mls/hr IV . [id number] [facility] Rx#:[id number] Oral 720 Output: Urine 1000 700 300 Estimated Blood Loss 0 Other: Voiding Method Indwelling Catheter Toilet Toilet Urinal Urinal - Labs CBC & Chem 7: 04/13/20 18:40 04/13/20 06:18 Labs: Abnormal Lab Results - Last 24 Hours (Table) 04/14/20 Range/Units 14:32 POC Glucose (mg/dL) 111 H (75-99) mg/dL
--- NOTE | 2020-04-15 15:57 | DS ---
DISCHARGE SUMMARY CHIEF COMPLAINT: Postoperative bladder pain and hemorrhage. HISTORY OF PRESENT ILLNESS AND PHYSICAL EXAMINATION: Details of this man's history and physical can be found in the initial workup. LABORATORY STUDIES: While he was in the hospital, he had laboratory studies, details of which can be found in the laboratory section of his chart. COURSE IN THE HOSPITAL: After admission, he was placed on bedrest, started on intravenous fluids and seen by Urology. He was taken to the operating room where bleeding was fulgurated and his catheter was removed. He is urinating freely and doing well. It was felt he could go home on the . He will go home on light activity about the house and his usual diet and activity and as well as medications and be seen in the office in several days. FINAL DIAGNOSES: 1. Post operative transurethral resection of tumor with postoperative pain and bleeding. 2. Congestive heart failure. 3. chronic obstructive pulmonary disease. OPERATIONS: Cystoscopy and cauterization of bleeding. CONSULTATIONS: Urology. He is improved. MMODL / IJN: [id number] /
== END 2020-04-15 13:29 | disposition home or self-care (01) | DRG 909 ==
LOC: EC 15:14 → 6NMEDSUR 18:05 → OBSVTOIN 04-14 09:48
PROVIDERS: ADMIT Family Medicine; ATTEND Family Medicine
PROC: 0W3R8ZZ Control Bleeding in Genitourinary Tract, Via Natural or Artificial Opening Endoscopic (ICD-10-PCS; principal; 2020-04-14 15:22)
DX: N99.820 Postprocedural hemorrhage of a genitourinary system organ or structure following a genitourinary system procedure (principal); Y83.8 Other surgical procedures as the cause of abnormal reaction of the patient, or of later complication, without mention of misadventure at the time of the procedure; C67.9 Malignant neoplasm of bladder, unspecified; E86.0 Dehydration; H54.7 Unspecified visual loss; J44.9 Chronic obstructive pulmonary disease, unspecified; Z79.82 Long term (current) use of aspirin; Z79.899 Other long term (current) drug therapy; Z87.891 Personal history of nicotine dependence; Z88.0 Allergy status to penicillin; Z91.011 Allergy to milk products; Z95.5 Presence of coronary angioplasty implant and graft; Z82.49 Family history of ischemic heart disease and other diseases of the circulatory system; Z94.89 Other transplanted organ and tissue status
CPT/HCPCS: 36415; 51701; 51798; 74022; 80053; 81001; 82150; 83690; 85025; 85610; 85730; 87086; 94640; 94760; 96361; 96374; 96375; 96376; 99285

== ENCOUNTER 2021-10-30 10:04 | Emergency (ER) | payer MEDICARE, OTHER ==
[2021-10-30 10:11] VITALS: BP 138/88; PULSE 57; RESP 18; TEMP 98.3
[2021-10-30] MEDS ORDERED: SODIUM CHLORIDE 0.9% 1,000 ML IV ONE (10:18)
[2021-10-30 10:41] LABS: HCT 38.6 % (39.0-53.0); HGB 12.3 gm/dL (13.0-17.5); MCH 34.1 pg (25.0-35.0); MCHC 31.9 g/dL (31.0-37.0); MCV 106.9 fL (80.0-100.0); Macrocytosis Moderate; Mean Platelet Volume 8.8; Platelet Count 217 k/uL (150-450); RBC 3.61 m/uL (4.30-5.90); RDW 13.7 % (11.5-15.5); WBC 10.3 k/uL (3.8-10.6)
[2021-10-30 10:46] LABS: Appearance,Urine Cloudy (Clear); Bilirubin,Urine Negative (Negative); Blood,Urine Large (Negative); Color,Urine Light Red; Glucose,Urine (UA) Negative (Negative); Ketones,Urine Negative (Negative); Leukocyte Esterase,Urine Small (Negative); Mucus,Urine Occasional /hpf; Nitrite,Urine Negative (Negative); PH, Urine 6.5 (5.0-8.0); Protein,Urine 1+ (Negative); RBC,Urine >182 /hpf (0-5); Specific Gravity,Urine 1.021 (1.001-1.035); Urobilinogen,Urine <2.0 mg/dL (<2.0); WBC,Urine 31 /hpf (0-5)
[2021-10-30 10:51] LABS: ALT 19 U/L (4-49); AST 37 U/L (17-59); African American GFR (CKD) >90 (>60 ml/min/1.73 sqM); Albumin 3.5 g/dL (3.5-5.0); Alkaline Phosphatase 125 U/L (38-126); Anion Gap 6 mmol/L; Blood Urea Nitrogen 21 mg/dL (9-20); Calcium 8.8 mg/dL (8.4-10.2); Carbon Dioxide 27 mmol/L (22-30); Chloride 107 mmol/L (98-107); Glucose 92 mg/dL (74-99); Non-African American GFR(CKD) 78 (>60 ml/min/1.73 sqM); Potassium 4.4 mmol/L (3.5-5.1); Sodium 140 mmol/L (137-145); Total Bilirubin 0.5 mg/dL (0.2-1.3); Total Protein 6.9 g/dL (6.3-8.2)
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
--- NOTE | 2021-10-30 11:42 | US ---
EXAMINATION TYPE: US kidneys/renal and bladder DATE OF EXAM: 10/30/2021 COMPARISON: NONE CLINICAL HISTORY: hematuria and clots, hx of bladder cancer. Hematuria EXAM MEASUREMENTS: Right Kidney: 10.8 x 4.5 x 3.7 cm Left Kidney: 10.5 x 5.0 x 3.8 cm Right Kidney: No hydronephrosis or masses seen cortical thinning. Left Kidney: No hydronephrosis or masses seen cortical thinning Bladder: Anechoic not fully distended. No obvious masses or wall thickening. Bilateral Jets seen: No IMPRESSION: 1. There may be some mild renal atrophy. No acute ultrasound changes identified.
[2021-10-30 12:08] LABS: Band Neutrophils % 1 %; Monocytes # (M) 0.93 k/uL (0-1.0); Neutrophils % (M) 55 %; Nucleated Red Blood Cells 0 /100 WBC (0-0); Total Cells Counted 100
[2021-10-30 12:10] LABS: Polychromasia Present
[2021-10-30] MEDS ORDERED: CEPHALEXIN 500 MG CAP PO STA (13:06)
== END 2021-10-30 15:29 | disposition home or self-care (01) ==
LOC: EC 10:04
DX: R31.9 Hematuria, unspecified (principal); Z91.011 Allergy to milk products; Z88.0 Allergy status to penicillin; J44.9 Chronic obstructive pulmonary disease, unspecified; Z87.891 Personal history of nicotine dependence
CPT/HCPCS: 36415; 76770; 80053; 81001; 83605; 84484; 85025; 87086; 93005; 96360; 99285

== ENCOUNTER → 2021-11-13 | Outpatient (CLI) | payer MEDICARE, OTHER ==
[2021-11-13 18:29] LABS: HCT 43.2 % (39.6-50.0); HGB 13.2 g/dL (13.0-17.0); MCH 33.4 pg (27.0-32.0); MCHC 30.6 g/dL (32.0-37.0); MCV 109.4 fL (80.0-97.0); Mean Platelet Volume 12.3 fL (9.5-12.2); NRBC Per 100 WBC 0 /100 WBCS (0.0-0.0); Platelet Count 321 X 10*3/uL (140-440); RBC 3.95 X 10*6/uL (4.40-5.60); RDW 13.7 % (11.5-14.5); WBC 13.11 X 10*3/uL (4.50-10.00)
[2021-11-13 19:06] LABS: African American GFR (CKD) 64.6 (60.0-200.0); Anion Gap 12.4 mmol/L (10.00-18.00); BUN/Creat Ratio 26.97 Ratio (12.00-20.00); Blood Urea Nitrogen 32.1 mg/dL (9.0-27.0); Calcium 10.6 mg/dL (8.7-10.3); Carbon Dioxide 25.3 mmol/L (20.0-27.5); Non-African American GFR(CKD) 55.8 (60.0-200.0); Potassium 5.1 mmol/L (3.5-5.5)
[2021-11-13 19:13] LABS: Basophils # (A) 0.05 X 10*3/uL (0.00-0.10); Basophils % (A) 0.4 %; Eosinophils # (A) 0.45 X 10*3/uL (0.04-0.35); Eosinophils % (A) 3.4 %; Immature Grans, Automated 0.5 %; Lymphocytes # (A) 4.74 X 10*3/uL (0.90-5.00); Lymphocytes % (A) 36.2 %; Monocytes # (A) 1.18 X 10*3/uL (0.20-1.00); Neutrophils # (A) 6.63 X 10*3/uL (1.80-7.70); Neutrophils % (A) 50.5 %
[2021-11-13 19:46] LABS: Appearance,Urine Turbid (Clear); Bacteria,Urine 1+ /HPF (None Seen); Bilirubin,Urine Negative (Negative); Blood,Urine Large (Negative); Calcium Oxalate Crystals,Urine Present /LPF (None Seen); Color,Urine Yellow (Yellow); Ketones,Urine Trace mg/dL (Negative); Nitrite,Urine Negative (Negative); PH, Urine 5.5 (5.0-8.0); Specific Gravity,Urine 1.022 (1.001-1.030); Urobilinogen,Urine 0.2 (0.2,1.0)
== END | disposition home or self-care (01) ==
LOC: LABPAT 10:55
PROVIDERS: ATTEND Urology
DX: Z01.812 Encounter for preprocedural laboratory examination (principal); C67.9 Malignant neoplasm of bladder, unspecified
CPT/HCPCS: 36415; 80048; 81001; 85025; 87086

== ENCOUNTER 2021-11-19 22:22 | Emergency (ER) | payer MEDICARE, OTHER ==
[2021-11-19 22:35] VITALS: RESP 18; TEMP 98.2
[2021-11-19] MEDS ORDERED: MORPHINE SULFATE 4 MG/ML SYRINGE IM STA (22:50)
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
[2021-11-19 23:59] VITALS: BP 114/68; PULSE 68
== END 2021-11-19 23:58 | disposition home or self-care (01) ==
LOC: EC 22:22
DX: R31.9 Hematuria, unspecified (principal); R33.9 Retention of urine, unspecified; R10.30 Lower abdominal pain, unspecified; Z87.891 Personal history of nicotine dependence; J44.9 Chronic obstructive pulmonary disease, unspecified; M19.90 Unspecified osteoarthritis, unspecified site; I25.2 Old myocardial infarction; Z88.0 Allergy status to penicillin; Z79.899 Other long term (current) drug therapy; Z79.51 Long term (current) use of inhaled steroids
CPT/HCPCS: 99284; 96372; J2270

== ENCOUNTER → 2021-12-06 | Outpatient (CLI) | payer MEDICARE, OTHER ==
--- NOTE | 2021-12-07 06:49 | CT ---
EXAMINATION TYPE: CT ChestAbdPelvis wo con DATE OF EXAM: 12/06/2021 COMPARISON: Prior CTA aorta May 17, 2018 HISTORY: Bladder Ca CT DLP: 964 mGycm. Automated Exposure Control for Dose Reduction was Utilized. TECHNIQUE: CT scan of the thorax, abdomen and pelvis is performed with oral but without IV contrast. FINDINGS: LUNGS: Mild emphysematous change in the periphery right upper lobe with bleb formation and mild fibro tic change. Mild scattered linear scarring and/or atelectasis. No suspicious nodules or masses. MEDIASTINUM: There are no greater than 1 cm hilar or mediastinal lymph nodes. No cardiomegaly or p ericardial effusion is seen. Lipomatous hypertrophy of the intra-arterial septum. Moderate to severe coronary artery calcification is seen. Prominent bilateral pulmonary arteries suggesting underlying pulmonary hypertension. OTHER: Small degree of flame-shaped bilateral subareolar gynecomastia. Small to moderate-sized hiatal hernia containing intra-abdominal fat. LIVER/GB: Cholecystectomy clips redemonstrated. PANCREAS: No significant abnormality is seen. SPLEEN: No significant abnormality is seen. ADRENALS: No significant abnormality is seen. KIDNEYS: Some cortical thinning in both kidneys. Central vascular calcification. No hydronephrosis se en bilaterally. Bladder poorly distended and thus suboptimally evaluated. BOWEL: Oral contrast reaches level of distal left colon. No suspicious small or large bowel dilatatio n. Redundant sigmoid colon with diverticula. Additional diverticula in the left colon. No CT evidence for acute diverticulitis. Normal contrast-filled appendix. GENITAL ORGANS: Prostate gland not enlarged. LYMPH NODES: No greater than 1cm abdominal or pelvic lymph nodes are appreciated. OSSEOUS STRUCTURES: Moderate axial joint space loss both hips. Exaggerated curvature is seen. Slight scoliotic curvature or positioning noted. OTHER: Moderate calcified plaque of the aorta extends into branch vessels. IMPRESSION: No obvious suspicious mass or adenopathy to suggest metastatic neoplastic recurrence.
== END | disposition home or self-care (01) ==
LOC: RADCTMAIN 12:50
PROVIDERS: ATTEND Urology
DX: C67.9 Malignant neoplasm of bladder, unspecified (principal)
CPT/HCPCS: 71250; 74176

== ENCOUNTER 2022-05-06 13:11 | Observation (INO) | payer MEDICARE, OTHER ==
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
[2022-05-06] MEDS ORDERED: KETOROLAC 15 MG/ML 1 ML VIAL IVP STA (13:40)
[2022-05-06] MEDS ORDERED: HYDROmorphone 0.5 MG/0.5 ML SYRINGE IVP STA (13:40)
[2022-05-06 13:54] LABS: Basophils % (A) 0 %; Eosinophils # (A) 0.3 k/uL (0-0.7); Eosinophils % (A) 4 %; HCT 40.5 % (39.0-53.0); Hypochromasia Slight; Lymphocytes # (A) 2.2 k/uL (1.0-4.8); Lymphocytes % (A) 26 %; MCH 34.8 pg (25.0-35.0); MCHC 32.2 g/dL (31.0-37.0); MCV 108.3 fL (80.0-100.0); Macrocytosis Marked; Mean Platelet Volume 9.5; Monocytes # (A) 0.4 k/uL (0-1.0); Monocytes % (A) 5 %; Neutrophils # (A) 5.3 k/uL (1.3-7.7); Neutrophils % (A) 63 %; Platelet Count 271 k/uL (150-450); RBC 3.74 m/uL (4.30-5.90); RDW 14.7 % (11.5-15.5); WBC 8.5 k/uL (3.8-10.6)
--- NOTE | 2022-05-06 14:12 | XR ---
EXAMINATION TYPE: XR chest 2V DATE OF EXAM: 05/06/2022 COMPARISON: 06/11/18 HISTORY: Shortness of breath TECHNIQUE: Frontal and lateral views of the chest are obtained. FINDINGS: Scattered senescent parenchymal changes noted. Hyperinflation compatible with COPD. No evidence for infiltrate. No evidence for atelectasis. Heart size is stable. Mediastinal structures are stable and grossly unremarkable. No evidence for hilar prominence. Degenerative changes dorsal spine. IMPRESSION: 1. No evidence for acute pulmonary disease.
[2022-05-06 14:19] LABS: INR 0.9 (<1.2); Prothrombin Time 10.4 sec (9.0-12.0)
[2022-05-06 14:23] LABS: Partial Thromboplastin Time 19.8 sec (22.0-30.0)
[2022-05-06 14:57] LABS: Albumin 3.9 g/dL (3.5-5.0); Calcium 9.7 mg/dL (8.4-10.2); Magnesium 2.2 mg/dL (1.6-2.3); Potassium 4.4 mmol/L (3.5-5.1); Total Bilirubin 0.5 mg/dL (0.2-1.3); Total Protein 7.3 g/dL (6.3-8.2)
[2022-05-06] MEDS ORDERED: SODIUM CHLORIDE 0.9% 500 ML 500 ML IV ONE (15:39)
[2022-05-06] MEDS ORDERED: SODIUM CHLORIDE 0.9% 1,000 ML IV ONE (15:49)
--- NOTE | 2022-05-06 16:29 | US ---
EXAMINATION TYPE: US duplex aorta DATE OF EXAM: 05/06/2022 COMPARISON: NONE CLINICAL HISTORY: Ultrasound aorta change test if necessary. Pain AAA TECHNIQUE: Multiple sonographic images of the abdominal aorta are obtained. FINDINGS: EXAM MEASUREMENTS: Abdominal Aorta: Proximal: 1.9 cm Proximal is obscured by bowel gas. Mid: 2.2 x 1.8 cm Distal: 1.9 x 2.0 cm Bifurcation: .9 x 1.1 cm .9 x 1.1 cm RESPIRATORY EQUIPMENT ASSISTANT NOTES: IMPRESSION: No evidence for abdominal aortic aneurysm at this time.
[2022-05-07] MEDS ORDERED: HYDROcodone/APAP 5-325MG 1 EACH TAB PO PRN (11:58)
--- NOTE | 2022-05-07 12:53 | XR ---
EXAMINATION TYPE: XR chest 2V DATE OF EXAM: 05/07/2022 12:45 PM COMPARISON: Chest radiographs from 05/06/2022. TECHNIQUE: XR chest 2V Frontal and lateral views of the chest. CLINICAL INDICATION:Male, 86 years old with history of Bone pain; FINDINGS: Lungs/Pleura: There is no evidence of pleural effusion, focal consolidation, or pneumothorax. Scatte red senescent parenchymal changes. Hyperinflation compatible with COPD. Pulmonary vascularity: Unremarkable. Heart/mediastinum: Cardiomediastinal silhouette is stable. Atherosclerotic calcifications are seen i n the aorta. Musculoskeletal: No acute osseous pathology. Degenerative changes of the spine. Stable anterior wedge compression deformity of the likely T9 vertebral body. Approximately 50% height loss. IMPRESSION: 1. Chronic changes without evidence for acute cardiopulmonary process. 2. COPD changes. 3. Anterior wedge compression deformity of the likely T9 vertebral body which is stable from yesterd ay's examination.
--- NOTE | 2022-05-07 12:57 | XR ---
EXAMINATION TYPE: XR lumbosacral spine min 4V DATE OF EXAM: 05/07/2022 12:45 PM INDICATION: Patient age:Male; 86 years old; Reason for study: LBP, Ca; PHH. COMPARISON: CT chest abdomen pelvis 12/06/2021. TECHNIQUE: Frontal, lateral , bilateral oblique and coned in L5-S1 lateral views of the spine. FINDINGS: 5 nonrib-bearing lumbar type vertebral bodies. No acute fracture or dislocation. Pedicles a re intact. Vertebral body heights are maintained. Multilevel facet arthropathy. Multilevel degenerati ve disc disease with disc space narrowing, endplate sclerosis, not steatosis. Vascular sclerosis. Dann gical clips in the right upper quadrant. IMPRESSION: 1. No acute process. 2. Multilevel degenerative disc disease.
--- NOTE | 2022-05-07 14:55 | CT ---
EXAMINATION TYPE: CT abdomen pelvis wo con DATE OF EXAM: 05/07/2022 COMPARISON: 12/06/2021 HISTORY: 86-year-old male pain, Cancer. Prior exam of 12/06/2021 states history of bladder cancer. CT DLP: 621.2 mGycm. Automated exposure control for dose reduction was used. TECHNIQUE: Contiguous axial scanning of the abdomen and pelvis without IV contrast. Coronal and sagit melissa reconstructions performed. FINDINGS: Heart normal size without pericardial effusion. Tiny hiatal hernia. Tortuous descending thoracic aorta borderline aneurysmal at 3.0 cm. Moderate atherosclerotic calcific ations are present throughout. Some fusiform ectasia infrarenal abdominal aorta up to 2.8 cm and ecta chaparro left common iliac artery up to 1.7 cm. Lung bases show strandy scarring. There is a new suspicious posterior left basilar pulmonary nodule m easuring 1.8 cm. No pleural effusion. Noncontrast appearance of the liver, adrenal glands, kidneys, spleen, and mildly atrophic pancreas sh ow no gross abnormality. No dilated small bowel, free fluid, or free air. No mesenteric or retroperitoneal lymphadenopathy see n. Mild stool burden. Normal appendix. Left-sided colonic diverticulosis greatest in the proximal to mid sigmoid colon. No pericolonic inflammatory change. The bladder is shrunken and thickened with surrounding inflammatory fat stranding. Prostate gland mil dly enlarged at 4.3 cm wide. No abnormal fluid collection in the pelvis or pelvic lymphadenopathy. Bones: Osteopenia. Hypertrophic facet arthropathy mid to lower lumbar spine. IMPRESSION: 1. Similar shrunken and thickened bladder. Surrounding fat stranding likely chronic posttreatment ch bradley, unchanged from 12/06/2021. 2. New suspicious 1.8 cm pulmonary nodule posterior left base. A new primary neoplasm versus metasta tic disease are in the differential. Note that the entire chest was not included in this exam. 3. Left sided clonic diverticulosis greatest in the sigmoid colon. No evidence for acute diverticul itis.
--- NOTE | 2022-05-07 15:58 | NM ---
EXAMINATION TYPE: NM pul vent and perfuse DATE OF EXAM: 05/07/2022 COMPARISON: Chest radiograph 05/07/2022. HISTORY: Chest pain, elevated d-dimer. TECHNIQUE: Utilizing inhalation of 68.9 mCi Tc 99m DTPA aerosol and intravenous injection of 5.1 mCi of Tc 99m MAA, ventilation and perfusion images are acquired post injection in multiple projections. FINDINGS: Normal radiotracer distribution is noted in the lungs. There is no evidence of mismatched defects. IMPRESSION: Normal.
[2022-05-07] MEDS: VIT A,C & E-LUTEIN-MINERALS 1 EACH TAB PO SCH (20:40)
[2022-05-07] MEDS: carvediloL 3.125 MG TAB PO SCH (20:40)
[2022-05-08] MEDS: carvediloL 3.125 MG TAB PO SCH ×2 (09:24→20:23)
[2022-05-08] MEDS: OXYBUTYNIN 15 MG TAB.ER.24 PO SCH (09:25)
[2022-05-08] MEDS: VIT A,C & E-LUTEIN-MINERALS 1 EACH TAB PO SCH ×2 (09:26→20:23)
--- NOTE | 2022-05-08 09:26 | HP ---
HISTORY AND PHYSICAL CHIEF COMPLAINT: Back pain, shortness of breath. HISTORY OF PRESENT ILLNESS: This is another admission for this 86-year-old unhealthy white male. He is being treated for bladder cancer, wherein he has a significant cancer load. He has had a lot of trouble with hematuria, presented to the emergency room with shortness of breath and back pain. Studies in the ER ruled out aneurysm. His hemoglobin is actually quite good. Etiology of back pain is not clear. REVIEW OF SYSTEMS: He denies any new neurologic issues, change in vision, hearing, chest pain, shortness of breath, cough, hemoptysis, etc. out of the ordinary. He is not having any abdominal pain, nausea, vomiting, hematemesis, melena, hematochezia, etc. Past medical history, family history, and personal and social histories are essentially unremarkable. He is quite debilitated due to his arthritis. He does have a history of coronary artery disease and has had angioplasty. He also has CKD, hyperlipidemia and a history of heart failure. Remainder of his history is unremarkable. He used to smoke, but he does not any longer. PHYSICAL EXAMINATION: VITAL SIGNS: Blood pressure is 113/68 with a pulse of 73, respirations of 34, and he is afebrile. GENERAL: He appeared to be chronically ill. He is quite weak. HEAD, EARS, EYES, NOSE, MOUTH AND THROAT: Seem to be normal. NECK: Neck veins are not distended. CHEST: Demonstrated poor breath sounds at the bases with scattered rales. CARDIAC: Demonstrated tachycardia with no murmurs or extra sounds. ABDOMEN: Soft and nontender without any masses. EXTREMITIES: Normal except for his poor muscle bulk. ASSESSMENT: He is admitted to the hospital with diagnosis of: 1. Acute low back pain, etiology unknown. 2. Shortness of breath. 3. Chronic obstructive pulmonary disease. 4. Carcinoma of the bladder. 5. History of coronary artery disease. 6. Hyperlipidemia. 7. Chronic kidney disease. PLAN: 1. Bedrest. 2. IV fluids. 3. CT of the abdomen and pelvis. 4. Total body bone scan. MMODL / IJN: [id number] /
--- NOTE | 2022-05-08 18:32 | PN ---
PROGRESS NOTE DATE OF SERVICE: 05/07/2022 CHIEF COMPLAINT: Back pain, COPD, shortness of breath, and carcinoma of the bladder. HISTORY OF PRESENT ILLNESS: This is a gentleman who is still having a lot of back pain. He seems a little bit confused today. PHYSICAL EXAMINATION: LUNGS: Breath sounds are heard bilaterally. CARDIAC: Normal. ABDOMEN: Soft and nontender. EXTREMITIES: Normal. IMPRESSION: 1. Shortness of breath. 2. Low back pain. 3. Chronic obstructive pulmonary disease. 4. Carcinoma of the bladder. PLAN: 1. D-dimer is slightly elevated, so a V/Q scan of the chest will be ordered. 2. Renal function and labs will be watched. His creatinine is 1.61 with BUN of 36 and GFR of 39. His alkaline phosphatase is elevated, and a total body bone scan has been ordered. MMODL / IJN: [id number] /
[2022-05-09] MEDS: VIT A,C & E-LUTEIN-MINERALS 1 EACH TAB PO SCH ×2 (08:54→21:45)
[2022-05-09] MEDS: carvediloL 3.125 MG TAB PO SCH ×2 (08:54→21:51)
[2022-05-09] MEDS: OXYBUTYNIN 15 MG TAB.ER.24 PO SCH (08:54)
[2022-05-09] MEDS: PANTOPRAZOLE 40 MG TABLET PO SCH (18:45)
--- NOTE | 2022-05-09 20:42 | PN ---
PROGRESS NOTE CHIEF COMPLAINT: Back pain and shortness of breath. HISTORY OF PRESENT ILLNESS: This gentleman is still complaining a lot of low back pain. He awaits bone scan. He has had no hematuria. He has had no fever or chills. PHYSICAL EXAMINATION: CHEST: Quite clear. CARDIAC: Normal. ABDOMEN: Soft and nontender. IMPRESSION: 1. Low back pain. 2. History of carcinoma of the bladder. 3. Chronic obstructive pulmonary disease. PLAN: 1. Await results of bone scan. 2. Watch renal function. BUN is 36 with a creatinine of 1.6. MMODL / IJN: [id number] /
[2022-05-10] MEDS: PANTOPRAZOLE 40 MG TABLET PO SCH (06:29)
[2022-05-10 07:21] VITALS: RESP 14; TEMP 97.8
[2022-05-10 08:03] VITALS: BP 128/68; PULSE 51
[2022-05-10] MEDS: OXYBUTYNIN 15 MG TAB.ER.24 PO SCH (08:11)
[2022-05-10] MEDS: VIT A,C & E-LUTEIN-MINERALS 1 EACH TAB PO SCH (08:12)
[2022-05-10] MEDS: carvediloL 3.125 MG TAB PO SCH (08:15)
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
[2022-05-10] MEDS ORDERED: RX INFO: IV CONTRAST WAS GIVEN 1 EACH MISC MISCELLANE PRN (11:35)
--- NOTE | 2022-05-10 14:10 | NM ---
EXAMINATION TYPE: NM bone scan whole body DATE OF EXAM: 05/10/2022 COMPARISON: NONE HISTORY: LBP, Ca Delayed whole-body scanning was performed following the injection of 22.6 mCi Tc 99m MDP. Images acq uired 4 hours post injection. FINDINGS: Intense increased radiotracer accumulation involving the T9 vertebral segment which may reflect fract ure and/or underlying lesion. No additional areas of abnormal radiotracer accumulation are seen. Dege nerative uptake is seen with the shoulders, sternoclavicular joints, wrists and hands, knees and ankl es. IMPRESSION: Intense increased radiotracer accumulation involving the T9 vertebral segment which may reflect fract ure and/or underlying lesion.
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
--- NOTE | 2022-05-10 23:58 | PN ---
PROGRESS NOTE CHIEF COMPLAINT: Back pain and CA of the bladder. HISTORY OF PRESENT ILLNESS: This gentleman is doing a little bit better. His back pain is slightly improved. He is getting bone scan tomorrow. There is a possibility of a lung nodule that was not there before, and he is being referred to Oncology and Urology. PHYSICAL EXAMINATION: GENERAL: He remains slightly pale. CHEST: Quite clear. CARDIAC: Normal. ABDOMEN: Soft, nontender. IMPRESSION: 1. Low back pain, probably etiology unknown. 2. Shortness of breath. 3. Carcinoma of the bladder. 4. Chronic obstructive pulmonary disease. PLAN: 1. Await results of bone scan. 2. Discharge planning. He is adamant on going home, however. MMODL / IJN: [id number] /
--- NOTE | 2022-05-12 19:48 | P.DS ---
Providers Date of admission: 05/06/22 15:49 Expected date of discharge: 05/10/22 Attending physician: Jasson Betancourt Consults: 05/09/22 09:41 Consult Physician Routine Consulting Provider: Jamin Baldwin Consult Reason/Comments: Ca, back pain Do you want consulting provider notified?: Yes 05/09/22 09:42 Consult Physician Routine Consulting Provider: Barber Fischer Consult Reason/Comments: Ca bladder, LBP, pulm. lesion Do you want consulting provider notified?: Yes Primary care physician: Jasson Betancourt [facility] Course: 86-year-old male presents emergency Department with a past medical history significant for difficulty breathing. Patient states started 4 weeks ago but got much worse over the last 2 weeks and today it was even worse we called EMS. Patient denies chest pain patient denies abdominal pain patient denies nausea vomiting diarrhea. Patient has any fever chills or cough. Patient states that he has a history of bladder cancer and he has been having some lower back pain recently and they think it's because of the bladder cancer. Patient states she has a past medical history significant for COPD as well. pt was previously not felt to be candidate for chemotherapy because of PS. He did have surgery and radiation for bladder cancer earlier this year and seems to have done ok. Currently, his back pain is his biggest c/o. Pending bone scan to assess for mets. CT AP did incidentally find a 1.8cm lt basilar pulmonary nodule. Recommendation would be for CT chest for baseline and biopsy of nodule, if felt to be accessible and pt is able to tolerate procedure. Another option would be PET scan to assess lungs. If nodule is suspicious for malignancy, and there are not numerous more lesions, empiric radiation could be considered. If bone scan suggests metastatic disease radiation could be used for palliation of back pain. Refer back to Rad Onc for evaluation and recommendations. Plan - Discharge Summary Discharge Rx Participant: Yes New Discharge Prescriptions: Continue Atorvastatin [Lipitor] 80 mg PO HS #30 tab carvediloL [Coreg] 3.125 mg PO BID Oxybutynin ER [Ditropan Xl] 15 mg PO DAILY HYDROcodone/APAP 5-325MG [[place] 5-325] 1 tab PO Q6HR PRN PRN Reason: Pain Vit C/E/Zn/Coppr/Lutein/Zeaxan [Preservision Areds 2 Softgel] 1 cap PO BID Discharge Medication List Atorvastatin [Lipitor] 80 mg PO HS #30 tab 06/15/18 [Rx] carvediloL [Coreg] 3.125 mg PO BID 12/08/18 [History] HYDROcodone/APAP 5-325MG [[place] 5-325] 1 tab PO Q6HR PRN 05/06/22 [History] Oxybutynin ER [Ditropan Xl] 15 mg PO DAILY 05/06/22 [History] Vit C/E/Zn/Coppr/Lutein/Zeaxan [Preservision Areds 2 Softgel] 1 cap PO BID 05/06/22 [History] Follow up Appointment(s)/Referral(s): Barber Fischer MD [STAFF PHYSICIAN] - 1 Week (Chest CT with contrast out patient Office will call patient with date and time of appointment.) Jasson Betancourt MD [Primary Care Provider] - 1-2 days [facility], [NON-STAFF] - 1 Week Patient Instructions/Handouts: Dyspnea (DC), Computed Tomography Scan (DC) Discharge Disposition: HOME SELF-CARE
== END 2022-05-10 15:09 | disposition home or self-care (01) ==
LOC: EC 13:11 → 6NMEDSUR 15:49
PROVIDERS: ADMIT Family Medicine; ATTEND Family Medicine
DX: M54.50 Low back pain, unspecified (principal); Z92.3 Personal history of irradiation; J44.9 Chronic obstructive pulmonary disease, unspecified; E78.5 Hyperlipidemia, unspecified; C67.9 Malignant neoplasm of bladder, unspecified; Z20.822 Contact with and (suspected) exposure to COVID-19; I25.2 Old myocardial infarction; M19.90 Unspecified osteoarthritis, unspecified site; M10.9 Gout, unspecified; R41.0 Disorientation, unspecified; R06.02 Shortness of breath; R91.1 Solitary pulmonary nodule; N18.9 Chronic kidney disease, unspecified; I25.10 Atherosclerotic heart disease of native coronary artery without angina pectoris; Z87.01 Personal history of pneumonia (recurrent); Z94.89 Other transplanted organ and tissue status; Z86.19 Personal history of other infectious and parasitic diseases; Z95.5 Presence of coronary angioplasty implant and graft; Z98.41 Cataract extraction status, right eye; Z87.891 Personal history of nicotine dependence; Z82.49 Family history of ischemic heart disease and other diseases of the circulatory system; Z80.0 Family history of malignant neoplasm of digestive organs; Z79.899 Other long term (current) drug therapy; Z88.0 Allergy status to penicillin
CPT/HCPCS: 96361 ×2; 96374; 96375; 99285; 36415; 93005; 85379; 83880; 80053; 83605; 83735; 84484; 85025; 85610; 85730; 87040; 87635; 72110; 71046 ×2; 93979; 74176; 78306; 78582; G0378 ×5; G0103; A9503; A9540; A9567; J1885; J1170

== ENCOUNTER → 2022-05-24 | Outpatient (CLI) | payer MEDICARE, OTHER | END | disposition home or self-care (01) | LOC: RADPETMAIN 10:11 | PROVIDERS: ATTEND Internal Medicine Hematology & Oncology | DX: Z53.9 Procedure and treatment not carried out, unspecified reason (principal) ==

== ENCOUNTER 2022-06-13 11:22 | Observation (INO) | payer MEDICARE, OTHER ==
[2022-06-13 12:24] LABS: Albumin 3.2 g/dL (3.5-5.0); Potassium 3.9 mmol/L (3.5-5.1); Total Bilirubin 0.5 mg/dL (0.2-1.3); Total Protein 6.5 g/dL (6.3-8.2)
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
[2022-06-13 12:48] LABS: Appearance,Urine Cloudy (Clear); Bilirubin,Urine Negative (Negative); Blood,Urine Large (Negative); Calcium Oxalate Crystals,Urine Occasional /hpf; Color,Urine Light Red; Glucose,Urine (UA) Negative (Negative); Ketones,Urine Negative (Negative); Leukocyte Esterase,Urine Small (Negative); Mucus,Urine Occasional /hpf; Nitrite,Urine Negative (Negative); Protein,Urine 2+ (Negative); RBC,Urine >182 /hpf (0-5); Specific Gravity,Urine 1.024 (1.001-1.035); Squamous Epithelial Cell,Urine 6 /hpf (0-4); WBC,Urine 46 /hpf (0-5)
[2022-06-13 13:01] LABS: Prothrombin Time 10.3 sec (9.0-12.0)
[2022-06-13 13:05] LABS: Basophils % (A) 0 %; Eosinophils # (A) 0.2 k/uL (0-0.7); Eosinophils % (A) 3 %; HCT 31.9 % (39.0-53.0); HGB 10.9 gm/dL (13.0-17.5); Hypochromasia Slight; Lymphocytes # (A) 2.5 k/uL (1.0-4.8); Lymphocytes % (A) 35 %; MCH 36.1 pg (25.0-35.0); MCHC 34.1 g/dL (31.0-37.0); Macrocytosis Moderate; Mean Platelet Volume 9.8; Monocytes # (A) 0.4 k/uL (0-1.0); Monocytes % (A) 5 %; Neutrophils # (A) 3.8 k/uL (1.3-7.7); Neutrophils % (A) 54 %; Platelet Count 209 k/uL (150-450); RBC 3.01 m/uL (4.30-5.90); RDW 14.5 % (11.5-15.5); WBC 7.1 k/uL (3.8-10.6)
[2022-06-13 13:17] LABS: Partial Thromboplastin Time 21.4 sec (22.0-30.0)
--- NOTE | 2022-06-13 13:38 | XR ---
EXAMINATION TYPE: XR chest 2V DATE OF EXAM: 06/13/2022 COMPARISON: 05/07/2022 HISTORY: Shortness of breath TECHNIQUE: Frontal and lateral views of the chest are obtained. FINDINGS: Scattered senescent parenchymal changes noted. Hyperinflation compatible with COPD. No evidence for infiltrate. No evidence for atelectasis. Heart size is stable. Ectasia mediastinal vasculature. No evidence for hilar prominence. Degenerative changes dorsal spine. Chronic loss of height mid thoracic segment. IMPRESSION: 1. No evidence for acute pulmonary disease.
--- NOTE | 2022-06-13 14:03 | CT ---
EXAMINATION TYPE: CT angio chest DATE OF EXAM: 06/13/2022 COMPARISON: 12/06/2021 HISTORY: r/o pE CT DLP: 305.8 mGycm CONTRAST: CT chest with contrast and 3D reconstruction with MIP imaging is performed with IV Contrast, patient injected with 60 mL of Isovue 370. Contrast-enhanced CT of the chest was performed through the course of the pulmonary arteries with misael g and mediastinal window settings submitted. 3D reconstruction with MIP imaging was also performed. PULMONARY ARTERIES: The pulmonary arteries and their major tributaries are patent. I do not see lisa dence for sizable filling defect to suggest pulmonary embolic process. LUNGS: The lungs are clear and free of infiltrate. No evidence for atelectasis. 1.9 cm left lower lob e pulmonary nodule is new relative to the prior examination the findings are suspicious for primary m alignancy versus solitary metastatic lesion. No pleural effusion. MEDIASTINUM: Thoracic aorta is of normal caliber,however, evaluation is limited given timing of the contrast bolus. If there is concern for thoracic aortic pathology consider TARYN. Correlate clinicall y . The heart is not enlarged. No evidence for mediastinal mass. No mediastinal lymph nodes greater than 1cm. HILAR STRUCTURES: No evidence for mass. No hilar lymph nodes greater than 1 cm. UPPER ABDOMEN: No significant abnormality is seen. IMPRESSION: 1. No evidence for Pulmonary embolism at this time. 2. 1.9 cm left lower lobe pulmonary nodule is new relative to the prior examination. The findings are suspicious for primary malignancy versus solitary metastatic lesion.
[2022-06-13] MEDS ORDERED: NALOXONE 0.4 MG/ML 1 ML VIAL IV PRN (14:20)
[2022-06-13] MEDS ORDERED: HYDROcodone/APAP 5-325MG 1 EACH TAB PO PRN (14:21)
[2022-06-13] MEDS ORDERED: SODIUM CHLORIDE 0.9% 1,000 ML IV SCH (14:30)
[2022-06-13] MEDS: ATORVASTATIN 80 MG TAB PO SCH (20:56)
[2022-06-13] MEDS: carvediloL 3.125 MG TAB PO SCH (20:56)
[2022-06-13] MEDS: VIT A,C & E-LUTEIN-MINERALS 1 EACH TAB PO SCH (20:56)
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
[2022-06-14] MEDS: VIT A,C & E-LUTEIN-MINERALS 1 EACH TAB PO SCH ×2 (08:24→22:01)
[2022-06-14] MEDS: SODIUM CHLORIDE 0.9% 1,000 ML IV SCH ×2 (08:24→22:10)
[2022-06-14] MEDS: carvediloL 3.125 MG TAB PO SCH ×2 (08:24→22:01)
[2022-06-14] MEDS: OXYBUTYNIN 15 MG TAB.ER.24 PO SCH (08:58)
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
[2022-06-14] MEDS ORDERED: SENNOSIDES 8.6 MG TAB PO PRN (10:47)
[2022-06-14] MEDS: HYDROmorphone 0.5 MG/0.5 ML SYRINGE IVP PRN ×2 (10:54→22:08)
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
[2022-06-14] MEDS ORDERED: ONDANSETRON 4 MG/2 ML VIAL IVP PRN (17:48)
[2022-06-14] MEDS: PANTOPRAZOLE 40 MG TABLET PO SCH (18:00)
[2022-06-14] MEDS: MAG HYDROX/AL HYDROX/SIMETH 30 ML CUP PO SCH ×2 (18:00→22:01)
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
[2022-06-14] MEDS: ATORVASTATIN 80 MG TAB PO SCH (22:01)
[2022-06-15] MEDS: PANTOPRAZOLE 40 MG TABLET PO SCH (06:31)
[2022-06-15] MEDS: SODIUM CHLORIDE 0.9% 1,000 ML IV SCH ×2 (06:32→12:30)
[2022-06-15] MEDS: HYDROmorphone 0.5 MG/0.5 ML SYRINGE IVP PRN (08:37)
[2022-06-15] MEDS: OXYBUTYNIN 15 MG TAB.ER.24 PO SCH (08:38)
[2022-06-15] MEDS: carvediloL 3.125 MG TAB PO SCH (08:38)
[2022-06-15] MEDS: MAG HYDROX/AL HYDROX/SIMETH 30 ML CUP PO SCH ×2 (08:38→12:29)
[2022-06-15] MEDS: VIT A,C & E-LUTEIN-MINERALS 1 EACH TAB PO SCH (08:38)
[2022-06-15 09:11] VITALS: BP 120/55; RESP 18
[2022-06-15 14:26] VITALS: PULSE 51; TEMP 97.4
--- NOTE | 2022-06-15 19:34 | DS ---
DISCHARGE SUMMARY CHIEF COMPLAINT: Chest and abdominal pain. HISTORY OF PRESENT ILLNESS AND PHYSICAL EXAMINATION: Details of this man's history and physical can be found in the initial workup. LABORATORY STUDIES: While he was in the hospital, he had laboratory studies, details of which can be found in the laboratory section of his chart. COURSE IN THE HOSPITAL: After admission he was placed on bedrest, started on intravenous fluids. Troponins were normal. He was seen by Cardiology. He was also seen by Urology who will re- evaluate his bladder if his hematuria continues. He was also seen by Oncology for the possible nodule in the left lower lobe as well as the possibility of other metastases. He was doing well and it was felt that he could be discharged, was anxious to go home, and will go home on his usual activity, diet, and medications, and follow up in several days in the office. FINAL DIAGNOSES: 1. Chest pain, noncardiac. 2. Lower abdominal pain. 3. Hematuria. 4. Anemia. 5. History of CA of the bladder. 6. Left lower lung nodule. 7. Chronic obstructive pulmonary disease. OPERATIONS: None. CONSULTATIONS: Urology, Cardiology, and Oncology. He is improved. MMODL / IJN: [id number] /
--- NOTE | 2022-06-15 20:34 | PN ---
PROGRESS NOTE DATE OF SERVICE: 06/14/2022 CHIEF COMPLAINT: Abdominal pain and chest pain. HISTORY OF PRESENT ILLNESS: This gentleman is doing a little bit better. He has not had any further chest pain. He is complaining mostly of burning lower abdominal pain. PHYSICAL EXAMINATION: CHEST: Clear. CARDIAC: Normal. ABDOMEN: Soft and nontender. GENERAL: He is pale. IMPRESSION: 1. Chest pain. 2. Lower abdominal pain. 3. Anemia. 4. of the bladder. 5. Chronic obstructive pulmonary disease. 6. History of coronary artery disease. PLAN: Continue evaluation. He is to be seen by Urology and Oncology for further bladder neoplasm and possible small lesion in the left lower lobe which is new. MMODL / IJN: [id number] /
== END 2022-06-15 16:21 | disposition home or self-care (01) ==
LOC: EC 11:22 → 6NMEDSUR 14:21
PROVIDERS: ADMIT Family Medicine; ATTEND Family Medicine
DX: R07.89 Other chest pain (principal); R91.1 Solitary pulmonary nodule; R10.30 Lower abdominal pain, unspecified; J44.9 Chronic obstructive pulmonary disease, unspecified; D64.9 Anemia, unspecified; R30.0 Dysuria; N02.9 Recurrent and persistent hematuria with unspecified morphologic changes; M54.50 Low back pain, unspecified; I25.10 Atherosclerotic heart disease of native coronary artery without angina pectoris; E78.5 Hyperlipidemia, unspecified; I10 Essential (primary) hypertension; I44.0 Atrioventricular block, first degree; I08.1 Rheumatic disorders of both mitral and tricuspid valves; R79.89 Other specified abnormal findings of blood chemistry; I25.2 Old myocardial infarction; H57.9 Unspecified disorder of eye and adnexa; M19.90 Unspecified osteoarthritis, unspecified site; M10.9 Gout, unspecified; C67.9 Malignant neoplasm of bladder, unspecified; M54.9 Dorsalgia, unspecified; R53.81 Other malaise; Z79.899 Other long term (current) drug therapy; Z88.0 Allergy status to penicillin; Z94.89 Other transplanted organ and tissue status; Z87.828 Personal history of other (healed) physical injury and trauma; Z95.5 Presence of coronary angioplasty implant and graft; Z98.49 Cataract extraction status, unspecified eye; Z85.51 Personal history of malignant neoplasm of bladder; Z91.81 History of falling; Z92.3 Personal history of irradiation; Z87.891 Personal history of nicotine dependence; Z98.890 Other specified postprocedural states; Z80.8 Family history of malignant neoplasm of other organs or systems; Z82.49 Family history of ischemic heart disease and other diseases of the circulatory system
CPT/HCPCS: 96376 ×2; 96361; 96374; 96375; 99285; 36415; 94760; 93005; 85379; 80053; 84484 ×2; 85025; 85610; 85730; 81001; 87086; 71046; 71275; G0378 ×3; J2405; J1170 ×2; Q9967

== ENCOUNTER → 2022-06-21 | Outpatient (CLI) | payer MEDICARE, OTHER ==
--- NOTE | 2022-06-22 13:14 | PE ---
EXAMINATION TYPE: PET CT fusion skull to thigh DATE OF EXAM: 06/21/2022 CLINICAL INDICATION:Male, 86 years old with history of C34.32 MALIGNANT NEOPLASM OF LOWER LOBE, LEFT BRON; TECHNIQUE: Following the intravenous administration of 11.46 mCi of F-18 FDG, whole body images are performed from the skull base to the midthigh. Images are reviewed on the computer in the coronal, axial, and sagittal planes. Reconstructed rotating images are created on independent workstation and reviewed on the computer. A non-contrast CT is performed in conjunction with the PET scan. Glucose level 112 mg/dL COMPARISON: CT abdomen chest 05/07/2022, CT chest 06/13/2022, CT chest abdomen pelvis 12/06/2021. PET/C T None, FINDINGS: Mediastinal SUV mean is 1.1. Hepatic parenchyma SUV mean is 1.8. SKULL BASE AND NECK: No suspicious radiotracer activity. CHEST, MEDIASTINUM, AND HILAR REGION: Left lower lobe posterior 2.2 x 1.9 cm pulmonary nodule Max SUV 2.2 * AP window lymph node measuring up to 15 mm in short axis max SUV 8.7 ABDOMEN AND PELVIS: No suspicious radiotracer activity. OSSEOUS STRUCTURES: Increased radiotracer activity within T9 vertebral body max SUV 2.5. This vertebr al body does demonstrate new compression deformity from 12/06/2021. This was seen on 06/13/2022. There is also T8 vertebral body radiotracer uptake present max SUV 2.7. OTHER CT: Bilateral aphakia. Atherosclerosis of the arterial vasculature including the carotid bifurc ations and coronary arteries. Scattered colonic diverticulosis. IMPRESSION: 1. Left lower lobe posterior pulmonary nodule with mildly elevated FDG activity is concerning for ma lignancy. This is new from 12/06/2021 and first present on 05/07/2022 study. 2. Given findings in #1, the AP window enlarged lymph node with increased radiotracer activity is co ncerning for metastatic disease. This is not present on 12/06/2021 3. T9 vertebral body compression fracture with additional fractures of the spinous processes of T8 an d T9 and subtle uptake within the T8 vertebral body. Correlate for history of trauma. Underlying path ologic fracture not ruled out at T9. Consider MRI with IV contrast for further evaluation. 4. No evidence for abnormal FDG activity within the abdomen and pelvis.
== END | disposition home or self-care (01) ==
LOC: RADPETMAIN 15:04
PROVIDERS: ATTEND Internal Medicine Hematology & Oncology
DX: C34.32 Malignant neoplasm of lower lobe, left bronchus or lung (principal); C67.9 Malignant neoplasm of bladder, unspecified; J98.4 Other disorders of lung
CPT/HCPCS: 78815; A9552

== ENCOUNTER 2022-07-01 11:22 | Observation (INO) | payer MEDICARE, OTHER ==
[2022-07-01] MEDS ORDERED: NITROGLYCERIN OINT 1 INCH/GM PACKET TOPICAL STA (12:15)
[2022-07-01] MEDS ORDERED: ASPIRIN 81 MG PO STA (12:15)
[2022-07-01 12:36] LABS: HCT 33.1 % (39.0-53.0); HGB 10.5 gm/dL (13.0-17.5); Hypochromasia Marked; MCH 34.9 pg (25.0-35.0); MCHC 31.6 g/dL (31.0-37.0); MCV 110.4 fL (80.0-100.0); Macrocytosis Marked; Mean Platelet Volume 9.2; Platelet Count 295 k/uL (150-450); RDW 15.1 % (11.5-15.5); WBC 6.9 k/uL (3.8-10.6)
[2022-07-01 12:40] LABS: Albumin 3.2 g/dL (3.5-5.0); Calcium 8.9 mg/dL (8.4-10.2); Total Bilirubin 0.5 mg/dL (0.2-1.3); Total Protein 6.8 g/dL (6.3-8.2)
[2022-07-01 12:41] LABS: Magnesium 2.1 mg/dL (1.6-2.3); Potassium 4.7 mmol/L (3.5-5.1)
[2022-07-01 12:51] LABS: Partial Thromboplastin Time 22.5 sec (22.0-30.0); Prothrombin Time 10.2 sec (9.0-12.0)
--- NOTE | 2022-07-01 12:52 | XR ---
EXAMINATION TYPE: XR chest 2V DATE OF EXAM: 07/01/2022 COMPARISON: 06/13/2022 INDICATION: Chest pain TECHNIQUE: Frontal and lateral views of the chest are obtained. FINDINGS: The heart size is normal. The pulmonary vasculature is normal. The lungs are clear. There is hyperinflation and flattening the diaphragms compatible with COPD. Who se AP diameter is evident. Some wedge deformities within the mid thoracic spine is present. Correlate for pain, the second compression deformity may be an interval finding. IMPRESSION: 1. No acute pulmonary process. 2. COPD. 3. Correlate for pain in the mid to lower thoracic region, and interval compression deformity may be present.
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
[2022-07-01 13:11] LABS: Eosinophils # (M) 0.14 k/uL (0-0.7); Monocytes # (M) 0.28 k/uL (0-1.0); Neutrophils # (M) 4.49 k/uL (1.3-7.7); Neutrophils % (M) 65 %; Nucleated Red Blood Cells 0 /100 WBC (0-0); Polychromasia Present; Stomatocytes Present; Total Cells Counted 100
[2022-07-01] MEDS ORDERED: NITROGLYCERIN SL TABS 0.4 MG TAB SUBLINGUAL PRN (14:04)
[2022-07-01] MEDS: NITROGLYCERIN OINT 1 INCH/GM PACKET TOPICAL SCH (18:24)
[2022-07-01] MEDS: carvediloL 3.125 MG TAB PO SCH (20:24)
[2022-07-02] MEDS: NITROGLYCERIN OINT 1 INCH/GM PACKET TOPICAL SCH ×5 (00:12→23:45)
[2022-07-02] MEDS: HYDROcodone/APAP 5-325MG 1 EACH TAB PO PRN ×4 (00:13→23:45)
[2022-07-02] MEDS: carvediloL 3.125 MG TAB PO SCH ×2 (05:37→17:37)
[2022-07-02] MEDS: ASPIRIN 325 MG TAB PO SCH (07:54)
[2022-07-02] MEDS: ISOSORBIDE MONONITRATE ER 30 MG TAB.ER.24H PO SCH (07:54)
[2022-07-02] MEDS: OXYBUTYNIN 15 MG TAB.ER.24 PO SCH (07:55)
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
[2022-07-02 09:15] LABS: Chol/HDL Ratio 2.47 Ratio; LDL Cholesterol,Calculated 17.8 mg/dL (0.0-131.0)
--- NOTE | 2022-07-02 10:04 | CA ---
Transthoracic Echo Report Name: Isac Taylor Age: 86 Gender: M : 1935 Exam Date: 07/02/2022 07:58 Exam Location: [place] [facility] Ht (in): 71 Wt (lb): 185 Ordering Physician: Dipika Gómez Attending/Referring Phys: [id number], Dalia Engraver Letter Katalina Prince RDCS Procedure CPT: Indications: LVF Cardiac Hx: Technical Quality: Fair Contrast 1: Total Dose (mL): Contrast 2: Total Dose (mL): MEASUREMENTS (Male / Female) Normal Values 2D ECHO LV Diastolic Diameter PLAX 3.4 cm 4.2 - 5.9 / 3.9 - 5.3 cm LV Systolic Diameter PLAX 2.3 cm IVS Diastolic Thickness 1.6 cm 0.6 - 1.0 / 0.6 - 0.9 cm LVPW Diastolic Thickness 1.7 cm 0.6 - 1.0 / 0.6 - 0.9 cm LV Relative Wall Thickness 1.0 LA Volume 40.8 cm??? 18 - 58 / 22 - 52 cm??? M-MODE Aortic Root Diameter MM 3.5 cm LA Systolic Diameter MM 4.6 cm LA Ao Ratio MM 1.3 AV Cusp Separation MM 1.9 cm DOPPLER AV Peak Velocity 118.9 cm/s AV Peak Gradient 5.7 mmHg AV Mean Velocity 78.8 cm/s AV Mean Gradient 2.8 mmHg AV Velocity Time Integral 24.0 cm LVOT Peak Velocity 113.6 cm/s LVOT Peak Gradient 5.2 mmHg MV Area PHT 2.2 cm??? Mitral E Point Velocity 64.8 cm/s Mitral A Point Velocity 133.4 cm/s Mitral E to A Ratio 0.5 MV Deceleration Time 337.3 ms MV E' Velocity 5.4 cm/s Mitral E to MV E' Ratio 11.9 FINDINGS Left Ventricle Moderately increased septal wall thickness. Normal left ventricular systolic function with no obvious regional wall motion abnormalities. Left ventricular ejection fraction is estimated at 55 %. Right Ventricle Normal right ventricular size and function. Right Atrium Normal right atrial size. Left Atrium Normal left atrial size. Mitral Valve Structurally normal mitral valve. Mitral valve thickened. Moderate mitral annular calcification. Aortic Valve Trileaflet aortic valve. No aortic stenosis. Aortic valve sclerosis. Mild aortic regurgitation. Tricuspid Valve Mild tricuspid regurgitation. Pulmonic Valve Trace pulmonic regurgitation. Pericardium No pericardial effusion. Aorta Normal size aortic root and proximal ascending aorta. CONCLUSIONS Normal left ventricular dimension and systolic function. Concentric LVH Aortic sclerosis Mitral annular calcification Previewed by: Dr. Chad Vaughn MD (Electronically Signed) Final Date: 02 July 2022 10:03
[2022-07-02] MEDS: MAG HYDROX/AL HYDROX/SIMETH 30 ML CUP PO SCH ×3 (11:22→20:27)
--- NOTE | 2022-07-02 21:48 | PN ---
PROGRESS NOTE DATE OF SERVICE: 07/02/2022 CHIEF COMPLAINT: Chest pain. HISTORY OF PRESENT ILLNESS: This gentleman is having some "indigestion." He has been seen by Cardiology. REVIEW OF SYSTEMS: He denies any chest pain today, and he has had no cough, hemoptysis, shortness of breath, etc. He has had no abdominal pain. PHYSICAL EXAMINATION: CHEST: Demonstrates poor breath sounds bilaterally. CARDIAC: Normal. ABDOMEN: Soft, nontender. IMPRESSION: 1. Chest pain. 2. Chronic obstructive pulmonary disease. 3. Cancer of the bladder. 4. Anemia. 5. Indigestion. PLAN: 1. Maalox. 2. Progress activity. 3. Wait for further recommendations from Cardiology. 4. Discharge planning. MMODL / IJN: [id number] /
--- NOTE | 2022-07-02 23:26 | HP ---
HISTORY AND PHYSICAL CHIEF COMPLAINT: Chest pain. HISTORY OF PRESENT ILLNESS: This is another admission recently for this 86-year-old male, who comes in with chest pain frequently. He has a history of coronary artery disease. He also has COPD. At the present time, he is fighting off bladder cancer. He presented again to the emergency room with chest pain and he was admitted. He denies diaphoresis, syncope, radiation of the pain, etc. Past medical history, family history, personal and social histories are all otherwise unremarkable and unchanged from his recent admitting and discharge summaries. He is allergic to penicillin. MEDICATIONS: He is on, 1. Atorvastatin. 2. Carvedilol. 3. Updrafts with DuoNeb. 4. Symbicort. 5. Vicodin. 6. Pepcid. 7. Lipitor. 8. Allopurinol. 9. Lasix. 10.Aspirin. He does continue to smoke. PHYSICAL EXAMINATION: VITAL SIGNS: Blood pressure is 128/65 with a pulse of 80, respirations of 34. He is afebrile. GENERAL: He appeared to be chronically ill. HEAD, EARS, EYES, NOSE, MOUTH AND THROAT: Unremarkable except for strabismus. NECK: Neck veins are not distended. CHEST: Demonstrated decreased breath sounds with scattered rales throughout. CARDIAC: Demonstrated what sounded like sinus rhythm and no murmurs. ABDOMEN: Soft and nontender. EXTREMITIES: Normal. IMPRESSION: 1. Chest pain. 2. History of coronary artery disease. 3. Chronic obstructive pulmonary disease. 4. Anemia. 5. Carcinoma of the bladder. PLAN: 1. Bedrest. 2. IV fluids. 3. Serial EKGs and enzymes. 4. Cardiology consult. MMODL / IJN: [id number] /
[2022-07-03] MEDS: NITROGLYCERIN OINT 1 INCH/GM PACKET TOPICAL SCH ×3 (06:11→18:40)
[2022-07-03] MEDS: HYDROcodone/APAP 5-325MG 1 EACH TAB PO PRN (06:13)
[2022-07-03] MEDS: carvediloL 3.125 MG TAB PO SCH ×2 (06:13→18:40)
--- NOTE | 2022-07-03 08:47 | P.PN ---
Subjective Progress Note Date: 07/03/22 HISTORY OF PRESENTING ILLNESS This is a pleasant 86-year-old male past medical history significant for cor onary artery disease status post PCI of the proximal D1 in 2018, PCI to mid LAD in 2018, bladder cancer s/p tumor removal, hypertension, dyslipidemia, former tobacco use for 70 years. He follows in the office with Dr. Bowen, last followed up in 2019. Patient was hospitalized on June 14 been seen by cardiology at that time for musculoskeletal chest pain. Patient now presents to hospital with a burning sensation from the base of his neck down to the epigastric area. He states he was resting at the time it started and did have some shortness of breath. No sweats. He is normally not physically active. DIAGNOSTICS * EKG reveals sinus rhythm, first-degree AV block, heart rate 61, nonspecific T- wave abnormalities. Prior EKG was similar findings. * Last Cardiac Catheterization 11/2018 revealed right dominant, patent LAD stent, chronically occluded OM1, diffuse disease in small 12, diffuse disease in RCA without high-grade stenosis in distal aneurysm formation * Echocardiogram 11/20/2018 revealed EF 55%, mild mitral regurgitation, mild tricuspid regurgitation * Telemetry tracings indicate sinus mechanism. * Chest x-ray shows no acute pulmonary process. COPD. Compression deformity in the lower thoracic region. * Laboratory reviewed, troponin negative 3, potassium 4.7, BUN 24 and creatinine 1.3. Hemoglobin 10.5 * Current home cardiac medications include carvedilol 3.125 mg twice a day, atorvastatin 80 mg nightly 07/03 Patient continues to have chest pain is going through to his back as well as epigastric pain with significant tenderness. He has been afebrile, heart rate 57, blood pressure 113/62 and pulse ox 95% on room air. Triglycerides 120, cholesterol 70, LDL 17, HDL 28. Echocardiogram reveals normal left ventricular dimension and systolic function. Concentric left ventricle hypertrophy. Aortic sclerosis. Mitral annular calcification. PHYSICAL EXAMINATION CONSTITUTIONAL: Appears uncomfortable. Frail, pale. HEENT: Head is normocephalic. Pupils are equal, round. Sclerae anicteric. Mucous membranes of the mouth are moist. No JVD. No carotid bruit. CHEST EXAMINATION: Lungs are diminished bases to auscultation. HEART EXAMINATION: Regular rate and rhythm. S1, S2 heard. No murmurs, gallops or rub. ABDOMEN: Significant tenderness to the epigastric area EXTREMITIES: 2+ peripheral pulses, no lower extremity edema and no calf tenderness. SKIN: warm,dry NEUROLOGIC EXAMINATION: Patient is awake, alert and oriented x3. ASSESSMENT Chest pain, acute coronary syndrome has ruled out Significant epigastric pain and tenderness with radiation of pain into the chest and back Coronary artery disease status post PCI of the proximal D1 in 2018, PCI to mid LAD in 2018 History of bladder cancer s/p tumor removal Hypertension Dyslipidemia Former tobacco use for 70 years PLAN We will order an urgent abdominal ultrasound to evaluate epigastric pain Continue patient on Imdur 30 mg daily Further recommendations patient progresses Thank you kindly for this consultation. Nurse practitioner note has been reviewed by physician. Signing provider agrees with the documented findings, assessment, and plan of care. Objective - Vital Signs Vital signs: Vital Signs Temp 97.7 F 07/03/22 07:26 Pulse 57 L 07/03/22 07:26 Resp 16 07/03/22 07:26 BP 113/62 07/03/22 07:26 Pulse Ox 95 07/03/22 07:26 FiO2 Intake & Output 07/02/22 07/03/22 07/03/22 18:59 06:59 18:59 Other: Voiding Method Toilet Toilet Diaper Diaper # Voids 2 3 - Labs CBC & Chem 7: 07/01/22 11:30 07/01/22 11:30 Labs: Abnormal Lab Results - Last 24 Hours (Table) 07/02/22 Range/Units 05:28 HDL Cholesterol 28.50 L (40.00-60.00) mg/dL
[2022-07-03] MEDS: ISOSORBIDE MONONITRATE ER 30 MG TAB.ER.24H PO SCH (09:12)
[2022-07-03] MEDS: MAG HYDROX/AL HYDROX/SIMETH 30 ML CUP PO SCH ×3 (09:12→18:40)
[2022-07-03] MEDS: ASPIRIN 325 MG TAB PO SCH (09:12)
--- NOTE | 2022-07-03 09:27 | US ---
EXAMINATION TYPE: US abdomen complete DATE OF EXAM: 07/03/2022 COMPARISON: CT & US CLINICAL HISTORY: EPIGASTRIC PAIN. Pt states generalized ABD pain for "quite a while"/ GB surgically absent TECHNIQUE: Multiple sonographic images of the abdomen are obtained. FINDINGS: EXAM MEASUREMENTS: Liver Length: 18.8 cm CBD: 0.6 cm Spleen: 10.2 cm Right Kidney: 10.5 x 4.4 x 5.1 cm Left Kidney: 9.7 x 4.9 x 4.5 cm DIRECTOR OF PERIOPERATIVE SERVICES NOTES: Pt unable to tolerate probe pressure and heavy breathing during exam, limited vi ews Pancreas: Obscured by bowel gas Liver: Enlarged, limited view due to pt unable to tolerate probe pressure and heavy breathing Gallbladder: Surgically absent Evidence for sonographic Gomez's sign: Yes CBD: wnl Spleen: wnl Right Kidney: Cortical thinning Left Kidney: Cortical thinning Upper IVC: wnl Abd Aorta: Proximal and mid portions gassed out/ Distal portion <3cm, however mildly ectatic at 2.6 cm The liver is homogenous. The intrahepatic portion of the IVC and proximal abdominal aorta are within normal limits. Common bile duct is unremarkable. The visualized portions of the pancreas are homog enous. The spleen is unremarkable. Kidneys are symmetric and free of hydronephrosis. No renal lesi ons are seen. IMPRESSION: 1. Renal cortical thinning bilaterally. 2. Hepatomegaly
[2022-07-03] MEDS: OXYBUTYNIN 15 MG TAB.ER.24 PO SCH (10:36)
[2022-07-03 14:14] VITALS: BP 142/77; PULSE 69; RESP 17; TEMP 97.5
--- NOTE | 2022-07-04 23:35 | DS ---
DISCHARGE SUMMARY CHIEF COMPLAINT: Chest pain. HISTORY OF PRESENT ILLNESS AND PHYSICAL EXAMINATION: Details of this man's history and physical can be found in the initial workup. LABORATORY STUDIES: While he was in the hospital, he had laboratory studies, details of which can be found in the laboratory section of his chart. COURSE IN THE HOSPITAL: After admission, he was placed on bedrest. He was seen by Cardiology. His enzymes remained normal. As has been the case recently, Cardiology felt he did not have anything further to offer and he became very anxious to be discharged. He was sent home on the evening of the and will be followed up as an outpatient. He will go home on his usual medications and activity. FINAL DIAGNOSES: 1. Chest pain, etiology unknown. 2. Coronary artery disease. 3. Chronic obstructive pulmonary disease. 4. Recurrent carcinoma of the bladder. OPERATIONS: None. CONSULTATIONS: Cardiology. He is improved. MMCAITLIN / ESTEFANY: [id number] /
== END 2022-07-03 18:49 | disposition home health service (06) ==
LOC: EC 11:22 → 6NMEDSUR 14:05
PROVIDERS: ADMIT Family Medicine; ATTEND Family Medicine
DX: R07.89 Other chest pain (principal); I25.10 Atherosclerotic heart disease of native coronary artery without angina pectoris; I11.9 Hypertensive heart disease without heart failure; K30 Functional dyspepsia; J44.9 Chronic obstructive pulmonary disease, unspecified; E78.5 Hyperlipidemia, unspecified; I44.0 Atrioventricular block, first degree; I08.3 Combined rheumatic disorders of mitral, aortic and tricuspid valves; D64.9 Anemia, unspecified; M10.9 Gout, unspecified; I25.2 Old myocardial infarction; R16.0 Hepatomegaly, not elsewhere classified; H54.7 Unspecified visual loss; M43.8X4 Other specified deforming dorsopathies, thoracic region; Z79.51 Long term (current) use of inhaled steroids; Z79.82 Long term (current) use of aspirin; Z79.899 Other long term (current) drug therapy; Z88.0 Allergy status to penicillin; Z85.51 Personal history of malignant neoplasm of bladder; Z90.49 Acquired absence of other specified parts of digestive tract; Z95.5 Presence of coronary angioplasty implant and graft; Z87.891 Personal history of nicotine dependence; Z98.41 Cataract extraction status, right eye; Z87.828 Personal history of other (healed) physical injury and trauma; Z94.89 Other transplanted organ and tissue status; Z87.01 Personal history of pneumonia (recurrent); Z91.81 History of falling; Z80.8 Family history of malignant neoplasm of other organs or systems; Z82.49 Family history of ischemic heart disease and other diseases of the circulatory system
CPT/HCPCS: 99285; 36415; 94760; 93005; 93306; 83880; 80061; 80053; 83735; 84484; 85025; 85610; 85730; 71046; 76700; G0378 ×3

== ENCOUNTER 2022-07-12 11:09 | Emergency (ER) | payer MEDICARE, OTHER ==
[2022-07-12] MEDS ORDERED: PANTOPRAZOLE 40 MG/10 ML VIAL IVP STA (11:35)
[2022-07-12] MEDS ORDERED: METOCLOPRAMIDE 5 MG/ML 2 ML VIAL IVP STA (12:07)
[2022-07-12 12:40] LABS: Basophils % (A) 1 %; Eosinophils # (A) 0.2 k/uL (0-0.7); Eosinophils % (A) 2 %; HCT 31.7 % (39.0-53.0); HGB 9.9 gm/dL (13.0-17.5); Hypochromasia Moderate; Lymphocytes # (A) 2.4 k/uL (1.0-4.8); Lymphocytes % (A) 29 %; MCHC 31.1 g/dL (31.0-37.0); MCV 109.2 fL (80.0-100.0); Macrocytosis Marked; Mean Platelet Volume 9.2; Monocytes # (A) 0.4 k/uL (0-1.0); Monocytes % (A) 5 %; Neutrophils % (A) 61 %; Platelet Count 280 k/uL (150-450); RDW 15.2 % (11.5-15.5); WBC 8.3 k/uL (3.8-10.6)
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
--- NOTE | 2022-07-12 13:04 | CT ---
EXAMINATION TYPE: CT abdomen pelvis wo con DATE OF EXAM: 07/12/2022 COMPARISON: 06/21/2022, 05/07/2022 HISTORY: 86-year-old male with abdominal pain CT DLP: 563.9 mGycm. Automated exposure control for dose reduction was used. TECHNIQUE: Contiguous axial scanning of the abdomen and pelvis without IV contrast. Coronal and sagit melissa reconstructions performed. FINDINGS: Heart upper limits of normal in size. Moderate size hiatal hernia containing intra-abdominal fat and small portion of the fundus of the stomach. 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 The posterior left basilar pulmonary nodule slightly larger 2.4 cm versus 2.2 cm, previously. Limited exam due to lack of contrast and breathing motion artifact. Noncontrast appearance of the liver, adrenal glands, spleen, pancreas show no gross abnormal body. Vascular calcifications involving the kidneys. No hydronephrosis. Cholecystectomy clips. Moderate atherosclerotic calcifications throughout the abdominal aorta and iliac arteries. Ectasia in frarenal abdominal aorta to 2.8 cm. Ectasia left common iliac artery up to 1.8 cm. No dilated small bowel, free fluid, or free air. Some scattered prominent fluid-filled small bowel lo ops are present in the left side of the abdomen and some liquid stool within the cecum. Mild stool wi thin the remainder of the right side of the colon. Normal appendix. Left-sided colonic diverticulosis , greatest in the mid sigmoid colon. No pericolonic inflammatory change seen. Tiny 2 mm bladder calculus. Bladder is collapsed with circumferential wall thickening and mild perive sicular fat stranding. Pelvic phleboliths. Prostate gland measures 4.2 cm wide. No abnormal fluid col lection in the pelvis or pelvic lymphadenopathy. Bones: Partially visualized T9 vertebral body fracture. Hypertrophic facet arthropathy mid to lower lumbar spine. Diffuse osteopenia. No osseous destructive process otherwise seen. IMPRESSION: 1. Some prominent fluid-filled small bowel loops in the left side of the abdomen and some liquid sto ol in the cecum. Possible mild enteritis. 2. Bladder wall thickening and mild perivesicular fat stranding. Possible chronic posttreatment chowdhury ge or cystitis. Clinically correlate. 3. Left-sided colonic diverticulosis without acute diverticulitis. 4. The known metastatic left basilar pulmonary nodule is slightly larger at 2.4 cm versus 2.2 cm, pr eviously. 5. Partially visualized known T9 vertebral body fracture.
[2022-07-12 13:10] LABS: Albumin 3.1 g/dL (3.5-5.0); Calcium 8.6 mg/dL (8.4-10.2); Total Bilirubin 0.7 mg/dL (0.2-1.3); Total Protein 6.7 g/dL (6.3-8.2)
[2022-07-12 13:20] LABS: Potassium 5.2 mmol/L (3.5-5.1)
[2022-07-12 14:36] VITALS: BP 100/61; PULSE 71; RESP 18; TEMP 97.7
== END 2022-07-12 14:35 | disposition home or self-care (01) ==
LOC: EC 11:09
DX: R10.13 Epigastric pain (principal); J44.9 Chronic obstructive pulmonary disease, unspecified; I25.2 Old myocardial infarction; M19.90 Unspecified osteoarthritis, unspecified site; Z87.891 Personal history of nicotine dependence; Z88.0 Allergy status to penicillin; Z79.899 Other long term (current) drug therapy
CPT/HCPCS: 36415; 74176; 80053; 82150; 83690; 85025; 96374; 96375; 99285

== ENCOUNTER → 2022-08-10 | Outpatient (CLI) | payer MEDICARE, OTHER ==
--- NOTE | 2022-08-10 13:19 | MR ---
EXAMINATION TYPE: MR thoracic spine wo/w con DATE OF EXAM: 08/10/2022 11:41 AM COMPARISON: 06/13/2022. INDICATION: Patient age:Male; 87 years old; Reason for study: S22.000S WEDGE COMPRESSION FRACTURE;. Compression fracture, mid back pain, history of bladder cancer 2 years ago TECHNIQUE: Multi planar, multi sequence imaging was performed utilizing: T1-weighted, short-tau inver jm recovery and T2-weighted of the thoracic spine. The patient was not given Gadolinium. IV Contrast: 8 cc Gadavist FINDINGS: Compression fractures of T8 and T9. The T9 compression fracture appears stable from prior CT on 2021. Mild retropulsion of T8 up to 3 mm. No significant retropulsion at T9. There is at least 50-75% height loss of T8 and 50% height loss of T9. There is increased inversion recovery signal within the se vertebral bodies. There is a Schmorl's node at the superior endplate of T10. There is increased ky phosis of the classic spine. The remainder of the osseous structure have normal signal intensity. Tho racic spinal cord appears unremarkable. There is no evidence of extradural defects or central spinal canal narrowing at any thoracic vertebral body level. Scattered disc desiccation is present. No abnor mal postcontrast enhancement. IMPRESSION: 1. Compression fracture of T8 and T9. T9 appears similar to prior on 06/13/2022. T8 is new compressio n fracture with at least 50-75 % height loss anteriorly and at least 50% and loss of T9. Mild retropu lsion at T8 of 3 mm. 2. Superior endplate of T10 Schmorl's node. 3. No abnormal postcontrast enhancement definitively visualized to suggest mass.
== END | disposition home or self-care (01) ==
LOC: RADMRIMAIN 10:02
PROVIDERS: ATTEND Internal Medicine Hematology & Oncology
DX: S22.070S Wedge compression fracture of T9-T10 vertebra, sequela (principal); S22.060S Wedge compression fracture of T7-T8 vertebra, sequela; M51.44 Schmorl's nodes, thoracic region
CPT/HCPCS: 72157; A9585

== ENCOUNTER 2022-08-20 09:51 | Inpatient (IN) | payer MEDICARE, OTHER ==
[2022-08-20] MEDS ORDERED: SODIUM CHLORIDE 0.9% 1,000 ML IV STA (09:58)
[2022-08-20 10:30] LABS: Anisocytosis Slight; Basophils % (A) 1 %; Eosinophils # (A) 0.1 k/uL (0-0.7); Eosinophils % (A) 2 %; Hypochromasia Slight; Lymphocytes # (A) 1.4 k/uL (1.0-4.8); Lymphocytes % (A) 35 %; MCH 33.4 pg (25.0-35.0); MCHC 30.2 g/dL (31.0-37.0); MCV 110.5 fL (80.0-100.0); Macrocytosis Marked; Mean Platelet Volume 8.5; Monocytes # (A) 0.2 k/uL (0-1.0); Monocytes % (A) 4 %; Neutrophils # (A) 2.3 k/uL (1.3-7.7); Neutrophils % (A) 56 %; Platelet Count 187 k/uL (150-450); RBC 4.88 m/uL (4.30-5.90); RDW 16.5 % (11.5-15.5); WBC 4.1 k/uL (3.8-10.6)
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
[2022-08-20 10:49] LABS: Albumin 3.4 g/dL (3.5-5.0); Calcium 9.8 mg/dL (8.4-10.2); Magnesium 2.1 mg/dL (1.6-2.3); Total Bilirubin 0.5 mg/dL (0.2-1.3); Total Protein 7.6 g/dL (6.3-8.2)
[2022-08-20 10:50] LABS: HGB 16.3 gm/dL (13.0-17.5)
--- NOTE | 2022-08-20 10:51 | XR ---
EXAMINATION TYPE: XR chest 2V DATE OF EXAM: 08/20/2022 COMPARISON: 07/01/2022 TECHNIQUE: PA and lateral views submitted. HISTORY: Pain FINDINGS: The lungs are clear and there is no pneumothorax, pleural effusion, or focal pneumonia. Heart size normal and no overt failure. Osseous structures demonstrate hypertrophic and degenerative changes of the spine. Severe compression fractures in the midthoracic spine have progressed from prior exam. Hyp erinflation suggests COPD. Linear band of density left lung compatible scarring or atelectasis. Suspe ct underlying COPD. Atherosclerotic change aorta with ectasia. IMPRESSION: 1. COPD with no acute infiltrates.. 2. Suspected progression of severe compression fractures midthoracic spine
[2022-08-20 10:55] LABS: INR 0.9 (<1.2); Prothrombin Time 9.9 sec (9.0-12.0)
[2022-08-20] MEDS ORDERED: SODIUM CHLORIDE 0.9% 500 ML 500 ML IV ONE (11:02)
[2022-08-20 11:11] LABS: Partial Thromboplastin Time 20.3 sec (22.0-30.0)
[2022-08-20 12:04] LABS: Appearance,Urine Cloudy (Clear); Bilirubin,Urine Negative (Negative); Blood,Urine Large (Negative); Calcium Oxalate Crystals,Urine Few /hpf; Color,Urine Yellow; Glucose,Urine (UA) Negative (Negative); Granular Casts,Urine 3 /lpf (0); Hyaline Casts,Urine 5 /lpf (0-2); Ketones,Urine Negative (Negative); Leukocyte Esterase,Urine Negative (Negative); Mucus,Urine Occasional /hpf; Nitrite,Urine Negative (Negative); PH, Urine 5.5 (5.0-8.0); Protein,Urine 1+ (Negative); RBC,Urine >182 /hpf (0-5); Specific Gravity,Urine 1.021 (1.001-1.035); Squamous Epithelial Cell,Urine 1 /hpf (0-4); WBC,Urine 71 /hpf (0-5)
[2022-08-20] MEDS ORDERED: ACETAMINOPHEN TAB 325 MG TAB PO PRN (12:44)
[2022-08-20] MEDS ORDERED: NALOXONE 0.4 MG/ML 1 ML VIAL IV PRN (12:44)
[2022-08-20] MEDS: SODIUM CHLORIDE 0.9% 1,000 ML IV SCH (13:01)
[2022-08-20] MEDS: ONDANSETRON 4 MG/2 ML VIAL IVP PRN (14:32)
[2022-08-20] MEDS ORDERED: NITROGLYCERIN 0.4 MG SUBLINGUAL PRN (17:30)
[2022-08-20] MEDS ORDERED: CYCLOBENZAPRINE 10 MG TAB PO PRN (17:30)
[2022-08-20] MEDS: oxyCODONE-APAP 10-325MG 1 EACH TAB PO SCH ×2 (20:15→22:45)
[2022-08-20] MEDS: carvediloL 3.125 MG TAB PO SCH (20:16)
[2022-08-21] MEDS: SODIUM CHLORIDE 0.9% 1,000 ML IV SCH ×2 (05:52→15:23)
[2022-08-21] MEDS: oxyCODONE-APAP 10-325MG 1 EACH TAB PO SCH ×4 (11:10→21:11)
[2022-08-21] MEDS: ASPIRIN 325 MG TAB PO SCH (11:31)
[2022-08-21] MEDS: ISOSORBIDE MONONITRATE ER 30 MG TAB.ER.24H PO SCH (11:31)
[2022-08-21] MEDS: carvediloL 3.125 MG TAB PO SCH ×2 (11:31→21:11)
[2022-08-21] MEDS: ONDANSETRON 4 MG/2 ML VIAL IVP PRN (11:50)
[2022-08-21 12:35] LABS: African American GFR (CKD) 71 (>60 ml/min/1.73 sqM); Anion Gap 5 mmol/L; Blood Urea Nitrogen 22 mg/dL (9-20); Calcium 8.7 mg/dL (8.4-10.2); Carbon Dioxide 22 mmol/L (22-30); Chloride 114 mmol/L (98-107); Glucose 98 mg/dL (74-99); Non-African American GFR(CKD) 61 (>60 ml/min/1.73 sqM); Potassium 4.2 mmol/L (3.5-5.1); Sodium 141 mmol/L (137-145)
[2022-08-21 12:55] LABS: Creatine Kinase MB 1.6 ng/mL (0.0-2.4)
[2022-08-21 13:37] VITALS: BMI 22.0
[2022-08-21 15:30] LABS: Basophils % (A) 0 %; Eosinophils # (A) 0.2 k/uL (0-0.7); Eosinophils % (A) 2 %; HCT 32.5 % (39.0-53.0); Hypochromasia Slight; Lymphocytes # (A) 2.9 k/uL (1.0-4.8); Lymphocytes % (A) 30 %; MCH 33.3 pg (25.0-35.0); MCHC 30.2 g/dL (31.0-37.0); MCV 110.4 fL (80.0-100.0); Macrocytosis Marked; Mean Platelet Volume 8.3; Monocytes # (A) 0.4 k/uL (0-1.0); Monocytes % (A) 4 %; Neutrophils % (A) 62 %; Platelet Count 265 k/uL (150-450); RBC 2.94 m/uL (4.30-5.90); RDW 15.9 % (11.5-15.5); WBC 9.7 k/uL (3.8-10.6)
[2022-08-21 15:33] LABS: HGB 9.8 gm/dL (13.0-17.5)
[2022-08-22] MEDS: SODIUM CHLORIDE 0.9% 1,000 ML IV SCH ×3 (06:30→18:37)
[2022-08-22] MEDS: ISOSORBIDE MONONITRATE ER 30 MG TAB.ER.24H PO SCH (09:44)
[2022-08-22] MEDS: carvediloL 3.125 MG TAB PO SCH ×2 (09:44→21:19)
[2022-08-22] MEDS: ASPIRIN 325 MG TAB PO SCH (09:44)
[2022-08-22 09:55] LABS: Anisocytosis Slight; Basophils % (A) 0 %; Eosinophils # (A) 0.3 k/uL (0-0.7); Eosinophils % (A) 4 %; HCT 32.4 % (39.0-53.0); HGB 9.5 gm/dL (13.0-17.5); Hypochromasia Marked; Lymphocytes # (A) 2.6 k/uL (1.0-4.8); Lymphocytes % (A) 31 %; MCH 33.5 pg (25.0-35.0); MCHC 29.4 g/dL (31.0-37.0); MCV 114.1 fL (80.0-100.0); Macrocytosis Marked; Mean Platelet Volume 8.6; Monocytes # (A) 0.3 k/uL (0-1.0); Monocytes % (A) 4 %; Neutrophils # (A) 4.8 k/uL (1.3-7.7); Neutrophils % (A) 59 %; Platelet Count 237 k/uL (150-450); RBC 2.84 m/uL (4.30-5.90); RDW 16.5 % (11.5-15.5); WBC 8.2 k/uL (3.8-10.6)
[2022-08-22] MEDS: oxyCODONE-APAP 10-325MG 1 EACH TAB PO SCH ×4 (09:56→21:20)
[2022-08-22] MEDS: ONDANSETRON 4 MG/2 ML VIAL IVP PRN ×2 (12:47→22:58)
[2022-08-22 16:01] LABS: African American GFR (CKD) 57.7 (60.0-200.0); Anion Gap 11.2 mmol/L (10.00-18.00); BUN/Creat Ratio 15.54 Ratio (12.00-20.00); Blood Urea Nitrogen 20.2 mg/dL (9.0-27.0); Calcium 8.9 mg/dL (8.7-10.3); Carbon Dioxide 19.8 mmol/L (20.0-27.5); Non-African American GFR(CKD) 49.8 (60.0-200.0)
--- NOTE | 2022-08-23 00:21 | HP ---
HISTORY AND PHYSICAL CHIEF COMPLAINT: Weakness, dehydration, CA of the bladder, hematuria, urinary tract infection, and acute kidney injury. HISTORY OF PRESENT ILLNESS: This gentleman presents back to the emergency room again. He has been having chronic back and abdominal pain and he has carcinoma of the bladder. He also has coronary artery disease and COPD and is very sedentary. He does not eat and drink well. REVIEW OF SYSTEMS: He denied any focal neurologic deficits, cough, hemoptysis, chest pain, abdominal pain, vomiting, diarrhea, melena, or diabetes. Past medical history, family history, personal and social histories are otherwise unremarkable and unchanged from his more recent admitting and discharge summaries. He has a history of coronary artery disease, hypertension, hyperlipidemia, alcohol abuse, and COPD. ALLERGIES: To penicillin. MEDICATIONS: 1. Percocet for pain. 2. Isosorbide mononitrate. 3. Atorvastatin. 4. Oxybutynin. 5. Carvedilol. 6. Updrafts with DuoNeb. 7. Symbicort. 8. Pepcid. 9. Allopurinol. 10.Lasix. SOCIAL HISTORY: He continues to smoke and he does drink occasionally. PHYSICAL EXAMINATION: VITAL SIGNS: Blood pressure is 139/78 with a pulse of 80, respirations of 36. He is afebrile. GENERAL: He appeared to be dehydrated and chronically ill. HEAD, EARS, EYES, NOSE, MOUTH AND THROAT: Unremarkable except for dry mucous membranes. He is blind in the right eye. NECK: Neck veins are not distended. CHEST: Demonstrated decreased breath sounds bilaterally. CARDIAC: Normal. ABDOMEN: Soft and slightly protuberant and slightly tender in the lower aspect. EXTREMITIES: Normal. IMPRESSION: 1. Dehydration. 2. Urinary tract infection. 3. Hematuria. 4. Carcinoma of the bladder. 5. History of coronary artery disease. 6. Urinary tract infection. PLAN: 1. Bedrest. 2. IV fluids. 3. Rehydrate. 4. Appropriate cultures. 5. Oncology consult. MMODL / IJN: [id number] /
--- NOTE | 2022-08-23 00:42 | PN ---
PROGRESS NOTE DATE OF SERVICE: 08/22/2022 CHIEF COMPLAINT: Abdominal pain, back pain, dehydration, and urinary tract infection. HISTORY OF PRESENT ILLNESS: This gentleman is still complaining of significant amount of abdominal and back discomfort. PHYSICAL EXAMINATION: CHEST: Clear. CARDIAC: Normal. ABDOMEN: Slightly protuberant, soft and nontender. IMPRESSION: 1. Abdominal pain. 2. Hematuria. 3. Back pain. 4. Coronary artery disease. 5. Carcinoma of the bladder. PLAN: 1. Increase activity. 2. He will see Urology for his hematuria and carcinoma of the bladder. MMODL / IJN: [id number] /
[2022-08-23] MEDS: SODIUM CHLORIDE 0.9% 1,000 ML IV SCH ×2 (07:30→20:15)
[2022-08-23] MEDS: ASPIRIN 325 MG TAB PO SCH (08:43)
[2022-08-23] MEDS: ISOSORBIDE MONONITRATE ER 30 MG TAB.ER.24H PO SCH (08:43)
[2022-08-23] MEDS: carvediloL 3.125 MG TAB PO SCH ×2 (08:43→20:15)
[2022-08-23] MEDS: oxyCODONE-APAP 10-325MG 1 EACH TAB PO SCH ×4 (09:01→20:15)
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
[2022-08-23] MEDS ORDERED: busPIRone HCl 5 MG TAB PO PRN (14:03)
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
[2022-08-23] MEDS: FAMOTIDINE 20 MG TAB PO PRN (18:31)
[2022-08-23] MEDS: MIRTAZAPINE 15 MG TAB PO SCH (20:15)
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
--- NOTE | 2022-08-24 02:36 | PN ---
PROGRESS NOTE DATE OF SERVICE: 08/21/2022 CHIEF COMPLAINT: Chest pain, abdominal pain, back pain, shortness of breath, hematuria, and CA of the bladder. HISTORY OF PRESENT ILLNESS: This gentleman is feeling about the same. States he still has lower abdominal pain as well as back pain. PHYSICAL EXAMINATION: GENERAL: He is slightly pale. CHEST: Demonstrates good breath sounds bilaterally. ABDOMEN: Soft, nontender. IMPRESSION: 1. Dehydration. 2. Carcinoma of the bladder. 3. Urinary tract infection. 4. Hematuria. 5. Chronic obstructive pulmonary disease. 6. . MMODL / IJN: [id number] /
[2022-08-24] MEDS: FAMOTIDINE 20 MG TAB PO PRN (08:00)
[2022-08-24] MEDS: ISOSORBIDE MONONITRATE ER 30 MG TAB.ER.24H PO SCH (08:00)
[2022-08-24] MEDS: ASPIRIN 325 MG TAB PO SCH (08:00)
[2022-08-24] MEDS: carvediloL 3.125 MG TAB PO SCH ×2 (08:00→21:09)
[2022-08-24] MEDS: oxyCODONE-APAP 10-325MG 1 EACH TAB PO SCH ×4 (08:00→21:09)
[2022-08-24] MEDS: SODIUM CHLORIDE 0.9% 1,000 ML IV SCH ×2 (09:48→21:11)
--- NOTE | 2022-08-24 10:18 | P.PN ---
Subjective Progress Note Date: 08/24/22 The patient is in the hospital with hematuria and dysuria. There is question of urine infection but the cultures have been negative. The patient has a known bladder cancer in 2005 with now metastatic disease. The patient is not a candidate for cystectomy nor chemotherapy and has undergone radiation therapy to the bladder. He is feeling better today. He cannot see the urine to determine whether there is any blood. Objective - Vital Signs Vital signs: Vital Signs Temp 97.5 F L 08/24/22 07:55 Pulse 60 08/24/22 07:55 Resp 13 08/24/22 07:55 BP 122/63 08/24/22 07:55 Pulse Ox 94 L 08/24/22 07:55 FiO2 21 08/22/22 20:16 Intake & Output 08/23/22 08/24/22 08/24/22 18:59 06:59 18:59 Intake Total 600 590 Balance 600 590 Weight 71.668 kg Intake: Intake, IV Titration 600 Amount Sodium Chloride 0.9% 1, 600 000 ml @ 75 mls/hr IV . [id number] [facility] Rx#:[id number] Oral 590 Other: Voiding Method Diaper Diaper Diaper Incontinent Incontinent Incontinent # Voids 3 - Labs CBC & Chem 7: 08/22/22 09:15 08/22/22 09:19 Labs: Microbiology - Last 24 Hours (Table) 08/20/22 13:45 Blood Culture - Preliminary Blood No Growth after 72 hours 08/20/22 13:30 Blood Culture - Preliminary Blood No Growth after 72 hours Assessment and Plan Assessment: Impression: This patient has metastatic bladder cancer with local recurrence. His undergone resection and now chemotherapy. 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 It could be aggravated by recurrent tumor. Unfortunately there is no absolute treatment for this other than intermittent resection if that is deemed necessary. The patient was to have a cystoscopy but never made it back in the office. He will need a cystoscopy as an outpatient. Unfortunately less the radiation work significantly there is nothing further that can be done. He is being seen by oncology. (1) Bladder cancer Current Visit: Yes Status: Acute Code(s): C67.9 - MALIGNANT NEOPLASM OF BLADDER, UNSPECIFIED SNOMED Code(s): 751630083 (2) Hematuria Current Visit: No Status: Acute Code(s): R31.9 - HEMATURIA, UNSPECIFIED SNOMED Code(s): 37339601
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
[2022-08-24] MEDS: MIRTAZAPINE 15 MG TAB PO SCH (21:09)
[2022-08-25] MEDS: oxyCODONE-APAP 10-325MG 1 EACH TAB PO SCH ×4 (08:11→21:14)
[2022-08-25] MEDS: carvediloL 3.125 MG TAB PO SCH ×2 (08:11→21:14)
[2022-08-25] MEDS: ASPIRIN 325 MG TAB PO SCH (08:11)
[2022-08-25] MEDS: ISOSORBIDE MONONITRATE ER 30 MG TAB.ER.24H PO SCH (08:11)
[2022-08-25] MEDS: SODIUM CHLORIDE 0.9% 1,000 ML IV SCH (10:26)
--- NOTE | 2022-08-25 11:56 | P.PN ---
Subjective Progress Note Date: 08/25/22 Principal diagnosis: T8/T9 compression fracture Objective - Vital Signs Vital signs: Vital Signs Temp 97.4 F L 08/25/22 08:00 Pulse 71 08/25/22 08:00 Resp 16 08/25/22 08:00 BP 121/69 08/25/22 08:00 Pulse Ox 95 08/25/22 08:00 FiO2 21 08/22/22 20:16 Intake & Output 08/24/22 08/25/22 08/25/22 18:59 06:59 18:59 Intake Total 50 Balance 50 Intake: Oral 50 Other: Voiding Method Diaper Diaper Diaper Incontinent Incontinent Incontinent # Voids 2 - Exam Gen: AOx3, NAD VSS stable at this time Integument: No obvious open lesions are visualized throughout the cervical, thoracic or lumbar spine Palpation: Patient demonstrates mild tenderness with palpation to the mid thoracic region both midline and paraspinal, no tenderness appreciated in the cervical or lumbar spine ROM: Full range of motion of all major muscle groups of the bilateral upper extremities, no focal deficits Range of motion of the bilateral lower extremities was difficult to assess, patient was willing to participate in exam. Sensory Exam: Senory exam to light touch is intact C5-T1 Senosry exam to light touch is intact L2-S1 Motor: 3+/5 strength appreciated in the bilateral upper extremities with shoulder abduction, shoulder elevation, flexion, elbow extension, wrist extension, wrist flexion, church worker 4-/5 strength appreciated in the bilateral lower extremity is with hip flexion, knee extension, knee flexion, plantar flexion, dorsiflexion, EHL, FHL I feel decrease in strength with both lower extremities is due to medical state and general deconditioning Reflexes: Negative Helen's, negative Babinski, negative clonus - Labs CBC & Chem 7: 08/22/22 09:15 08/22/22 09:19 Labs: Microbiology - Last 24 Hours (Table) 08/20/22 13:45 Blood Culture - Preliminary Blood No Growth after 96 hours 08/20/22 13:30 Blood Culture - Preliminary Blood No Growth after 96 hours Assessment and Plan Assessment: Back pain T8-T9 vertebral compression fracture, chronic Possible metastatic lesion T8-T9 Pulmonary nodule, likely metastatic lesion Bladder cancer Multiple medical comorbidities Plan: I was able to review the images with my attending Dr. Goodmanson. After review of the images we do feel this is likely pathological involving the T8 and T9 vertebral body compression fractures. Patient remains stable at this time, no acute neuropathic signs. Patient has not been up working with physical therapy to assess symptoms. Patient's symptoms seem to be improving while resting in bed. We would like to see how the patient does was attempting to get up with physical therapy. It sounds like the patient's baseline is not very active, he stated today that he does utilize a motorized scooter while at home. Possible surgical intervention would include kyphoplasty with/without posterior stabilization Weight-bear as tolerated, utilize walker PT/OT DVT prophylaxis per primary medical service Pain control, continue with current medications We'll reassess patient after working with physical therapy to determine best options for treatment. Time with Patient: Less than 30
--- NOTE | 2022-08-25 13:36 | P.PN ---
Subjective Progress Note Date: 08/25/22 87-year-old male, who is DO NOT RESUSCITATE, presents to the emergency department on 08/20, complaining of weakness. The patient apparently was admitted to the hospital and we were consulted just this morning, for a nap normal CAT scan, and PET scan, which showed an enlarging lesion in the left lower lobe. The patient cannot give much of a history. He apparently been sick for a number days, has not been able to get out of bed. When I asked him what brought him into the hospital, he states that he was feeling sick. He denied any shortness of breath. No chest pain or chest discomfort. Currently, he's on room air. The patient's getting saline at 75 mL an hour. We had the opportunity to review the most recent CAT scan and PET scan. The patient has a history of bladder cancer, COPD, myocardial infarction, DJD, among other things. He has been seen by oncology. The patient is a former smoker. Most recent laboratory data is from August 22, showing a white count of 8.2, hemoglobin 9.5, hematocrit 32.4, and a normal platelet count. Sodium 143, potassium 4, chlorides 112, CO2 20, anion gap 11, BUN 20, creatinine 1.3. Chest x-ray from the day of admission shows changes of COPD. The patient is seen today 08/25/2022 in follow-up on the oncology unit. He is currently resting comfortably in bed. Awake and alert in no acute distress. Denies any worsening shortness of breath, cough or congestion. Urine culture revealed no growth. Blood cultures reveal no growth. No new labs today. Objective - Vital Signs Vital signs: Vital Signs Temp 97.4 F L 08/25/22 08:00 Pulse 71 08/25/22 08:00 Resp 16 08/25/22 08:00 BP 121/69 08/25/22 08:00 Pulse Ox 95 08/25/22 08:00 FiO2 21 08/22/22 20:16 Intake & Output 08/24/22 08/25/22 08/25/22 18:59 06:59 18:59 Intake Total 50 Balance 50 Intake: Oral 50 Other: Voiding Method Diaper Diaper Diaper Incontinent Incontinent Incontinent # Voids 2 - Exam GENERAL EXAM: Alert, frail 87-year-old male, on room air, comfortable in no apparent distress. HEAD: Normocephalic. EYES: Normal reaction of pupils, equal size. NOSE: Clear with pink turbinates. THROAT: No erythema or exudates. NECK: No masses, no JVD. CHEST: No chest wall deformity. LUNGS: Equal air entry with no crackles, wheeze, rhonchi or dullness. Diminished. CVS: S1 and S2 normal with no audible murmur, regular rhythm. ABDOMEN: No hepatosplenomegaly, normal bowel sounds, no guarding or rigidity. SPINE: No scoliosis or deformity SKIN: No rashes CENTRAL NERVOUS SYSTEM: No focal deficits, tone is normal in all 4 extremities. EXTREMITIES: There is no peripheral edema. No clubbing, no cyanosis. Peripheral pulses are intact. - Labs CBC & Chem 7: 08/22/22 09:15 08/22/22 09:19 Labs: Microbiology - Last 24 Hours (Table) 08/20/22 13:45 Blood Culture - Preliminary Blood No Growth after 96 hours 08/20/22 13:30 Blood Culture - Preliminary Blood No Growth after 96 hours Assessment and Plan Assessment: Enlarging pulmonary nodule, left lower lobe, measuring 2.2 x 1.9 cm, with a ma ximum SUV of 2.2. This could represent metastatic bladder cancer, or a primary lung malignancy. Questionable bony metastasis, thoracic spine. AP window lymph node, measuring up to 15 mm, with an SUV value of 8.7. History of bladder cancer. History of COPD. History of myocardial infarction. History of osteoarthritis. History of gout. CAD, with previous catheterization/stent. Poor functional performance based on the multiple comorbidities. Plan: The patient was seen and evaluated He remains quite weak and frail Appears to have failure to thrive Not interested in much conversation Psychiatry consulted regarding depression Poor candidate for biopsies or treatment at this time DO NOT RESUSCITATE/DO NOT INTUBATE CODE STATUS I have personally seen and examined the patient, performed the documentation and the assessment and plan as written. Number of minutes spent on the visit: 10.
--- NOTE | 2022-08-25 14:01 | PN ---
PROGRESS NOTE DATE OF SERVICE: 08/25/2022 CHIEF COMPLAINT: Dehydration, weakness, and general debility. HISTORY OF PRESENT ILLNESS: This gentleman is not doing well. He is becoming little bit more lethargic each day. He is not complaining of a lot of pain. Physical therapy has been ordered, but he is not getting up. Kidney function has deteriorated with his GFR dropping from 61 to 49.8. PHYSICAL EXAMINATION: GENERAL: He remains chronically ill. CHEST: Clear. CARDIAC: Normal. ABDOMEN: Soft and nontender. IMPRESSION: 1. Dehydration. 2. Delirium. 3. Carcinoma of the bladder. 4. Chronic kidney disease. PLAN: Physical therapy has been ordered, but he is not benefitting. Discharge plan is being sought. MMODL / IJN: [id number] /
[2022-08-25] MEDS: MIRTAZAPINE 15 MG TAB PO SCH (21:14)
[2022-08-26] MEDS: SODIUM CHLORIDE 0.9% 1,000 ML IV SCH ×2 (01:54→15:42)
--- NOTE | 2022-08-26 05:19 | PN ---
PROGRESS NOTE DATE OF SERVICE: 08/24/2022 CHIEF COMPLAINT: Dehydration, malnutrition, debility, carcinoma of the bladder. HISTORY OF PRESENT ILLNESS: This gentleman is not doing well. He is weaker all the time. He is not getting out of bed. He is still complaining of lower abdominal back pain. PHYSICAL EXAMINATION: CHEST: Clear. CARDIAC: Normal. ABDOMEN: Soft and nontender. GENERAL: He is pale and he is dehydrated. IMPRESSION: 1. Urinary tract infection. 2. Dehydration. 3. Carcinoma of the bladder. 4. Hematuria. 5. Generalized weakness and debility. PLAN: Encouraged this patient to increase his activity and eating. He is supposed to be getting physical therapy. He problem and discharge planning has been requested. MMHIRAML / SUDHAKARN: [id number] /
--- NOTE | 2022-08-26 05:33 | PN ---
PROGRESS NOTE DATE OF SERVICE: 08/23/2022 CHIEF COMPLAINT: Dehydration, urinary tract infection, infection, weakness and general debility. HISTORY OF PRESENT ILLNESS: This gentleman is not doing well. He usually is responding to IV fluids and is anxious to be discharged. He is complaining more and more of low back pain and chest pain, as well as "heartburn." He has had no nausea or vomiting. PHYSICAL EXAMINATION: GENERAL: He remains pale, chronically ill, dehydrated, and weak. CHEST: Clear. CARDIAC: Normal. IMPRESSION: 1. Urinary tract infection. 2. Chest pain. 3. Low back pain. 4. Hematuria secondary to CA of the bladder. 5. Gastritis. 6. Depression. PLAN: Addressed the patient's symptoms. He is not eating and not ambulating. He has been referred to Physical Therapy. He has also been referred for discharge planning. NILSA / ESTEFANY: [id number] /
--- NOTE | 2022-08-26 08:50 | P.PN ---
Subjective Progress Note Date: 08/26/22 Principal diagnosis: T8/T9 compression fracture Patient seen and examined this morning. Patient is currently resting in bed with side rails elevated. RN reports the patient did have an unwitnessed fall at bedside yesterday 08/25/22. Bed alarm is currently activated. Patient is somewhat confused in regards to relating his symptoms of back pain. He is refusing to participate in bed exercise assessments. Patient has been afebrile, denies and nausea/vomiting, or chest pain. Objective - Vital Signs Vital signs: Vital Signs Temp 97.6 F 08/26/22 07:02 Pulse 68 08/26/22 07:02 Resp 16 08/26/22 07:02 BP 147/72 08/26/22 07:02 Pulse Ox 90 L 08/26/22 07:14 FiO2 21 08/22/22 20:16 Intake & Output 08/25/22 08/26/22 08/26/22 18:59 06:59 18:59 Intake Total 1140 Balance 1140 Intake: Intake, IV Titration 900 Amount Sodium Chloride 0.9% 1, 900 000 ml @ 75 mls/hr IV . [id number] [facility] Rx#:[id number] Oral 240 Other: Voiding Method Diaper Diaper Incontinent Incontinent # Voids 3 - Exam Gen: AOx3, NAD VSS stable at this time Integument: No obvious open lesions are visualized throughout the cervical, thoracic or lumbar spine Palpation: Patient demonstrates mild tenderness with palpation to the mid thoracic region both midline and paraspinal, no tenderness appreciated in the cervical or lumbar spine ROM: Full range of motion of all major muscle groups of the bilateral upper extremities, no focal deficits Range of motion of the bilateral lower extremities was difficult to assess, patient was willing to participate in exam. Sensory Exam: Senory exam to light touch is intact C5-T1 Senosry exam to light touch is intact L2-S1 Motor: SVETLANA per patient refusal Reflexes: Negative Helen's, negative Babinski, negative clonus - Labs CBC & Chem 7: 08/22/22 09:15 08/22/22 09:19 Labs: Microbiology - Last 24 Hours (Table) 08/20/22 13:45 Blood Culture - Preliminary Blood No Growth after 120 hours 08/20/22 13:30 Blood Culture - Preliminary Blood No Growth after 120 hours Assessment and Plan Assessment: Back pain T8-T9 vertebral compression fracture, chronic Possible metastatic lesion T8-T9 Pulmonary nodule, likely metastatic lesion Bladder cancer Multiple medical comorbidities Plan: -Appreciate functional consultant and team management. -Weight-bear as tolerated, utilize walker -PT/OT -DVT prophylaxis per primary medical service -Pain control, continue with current medications We'll reassess patient after working with physical therapy to determine best options for treatment. *I reviewed and discussed this case with my attending Dr. Carbajal, whom has reviewed this chart and films and is in agreement with assessment and plan of care as outlined above. I have personally seen and examined the patient, performed the documentation and the assessment and plan as written. Number of minutes spent on the visit: 20m.
[2022-08-26] MEDS: ISOSORBIDE MONONITRATE ER 30 MG TAB.ER.24H PO SCH (09:00)
[2022-08-26] MEDS: carvediloL 3.125 MG TAB PO SCH ×2 (09:00→21:09)
[2022-08-26] MEDS: oxyCODONE-APAP 10-325MG 1 EACH TAB PO SCH ×4 (09:01→21:09)
[2022-08-26] MEDS: ASPIRIN 325 MG TAB PO SCH (09:01)
--- NOTE | 2022-08-26 13:18 | P.PN ---
Subjective Progress Note Date: 08/26/22 87-year-old male, who is DO NOT RESUSCITATE, presents to the emergency department on 08/20, complaining of weakness. The patient apparently was admitted to the hospital and we were consulted just this morning, for a nap normal CAT scan, and PET scan, which showed an enlarging lesion in the left lower lobe. The patient cannot give much of a history. He apparently been sick for a number days, has not been able to get out of bed. When I asked him what brought him into the hospital, he states that he was feeling sick. He denied any shortness of breath. No chest pain or chest discomfort. Currently, he's on room air. The patient's getting saline at 75 mL an hour. We had the opportunity to review the most recent CAT scan and PET scan. The patient has a history of bladder cancer, COPD, myocardial infarction, DJD, among other things. He has been seen by oncology. The patient is a former smoker. Most recent laboratory data is from August 22, showing a white count of 8.2, hemoglobin 9.5, hematocrit 32.4, and a normal platelet count. Sodium 143, potassium 4, chlorides 112, CO2 20, anion gap 11, BUN 20, creatinine 1.3. Chest x-ray from the day of admission shows changes of COPD. The patient is seen today 08/25/2022 in follow-up on the oncology unit. He is currently resting comfortably in bed. Awake and alert in no acute distress. Denies any worsening shortness of breath, cough or congestion. Urine culture revealed no growth. Blood cultures reveal no growth. No new labs today. 08/26/2022, I reviewed the patient's PET/CT and there is a lymph nodes/metabolically avid noted her density in the AP window which is probably a malignant process. The patient is known to have previous history of bladder cancer. The patient also known to have COPD, previous myocardial infarction and myocardial infarction and coronary artery disease. I reviewed the images of the PET/CT. The lymph node is not accessible via EBUS Objective - Vital Signs Vital signs: Vital Signs Temp 97.6 F 08/26/22 12:16 Pulse 76 08/26/22 12:16 Resp 16 08/26/22 12:16 BP 138/68 08/26/22 12:16 Pulse Ox 92 L 08/26/22 12:16 FiO2 21 08/22/22 20:16 Intake & Output 08/25/22 08/26/22 08/26/22 18:59 06:59 18:59 Intake Total 1140 Balance 1140 Intake: Intake, IV Titration 900 Amount Sodium Chloride 0.9% 1, 900 000 ml @ 75 mls/hr IV . [id number] [facility] Rx#:[id number] Oral 240 Other: Voiding Method Diaper Diaper Diaper Incontinent Incontinent Incontinent # Voids 3 1 - Exam GENERAL EXAM: Alert, frail 87-year-old male, on room air, comfortable in no apparent distress. HEAD: Normocephalic. EYES: Normal reaction of pupils, equal size. NOSE: Clear with pink turbinates. THROAT: No erythema or exudates. NECK: No masses, no JVD. CHEST: No chest wall deformity. LUNGS: Equal air entry with no crackles, wheeze, rhonchi or dullness. Diminished. CVS: S1 and S2 normal with no audible murmur, regular rhythm. ABDOMEN: No hepatosplenomegaly, normal bowel sounds, no guarding or rigidity. SPINE: No scoliosis or deformity SKIN: No rashes CENTRAL NERVOUS SYSTEM: No focal deficits, tone is normal in all 4 extremities. EXTREMITIES: There is no peripheral edema. No clubbing, no cyanosis. Peripheral pulses are intact. - Labs CBC & Chem 7: 08/22/22 09:15 08/22/22 09:19 Labs: Microbiology - Last 24 Hours (Table) 08/20/22 13:45 Blood Culture - Preliminary Blood No Growth after 120 hours 08/20/22 13:30 Blood Culture - Preliminary Blood No Growth after 120 hours Assessment and Plan Plan: Enlarging pulmonary nodule, left lower lobe, measuring 2.2 x 1.9 cm, with a maximum SUV of 2.2. This could represent metastatic bladder cancer, or a primary lung malignancy. Questionable bony metastasis, thoracic spine. AP window lymph node, measuring up to 15 mm, with an SUV value of 8.7. History of bladder cancer. History of COPD. History of myocardial infarction. History of osteoarthritis. History of gout. CAD, with previous catheterization/stent. Poor functional performance based on the multiple comorbidities. Plan: The lymph node/metabolically avid lesion is in the AP window. This will require a left-sided mediastinoscopy. Endobronchial ultrasound may not be able to access this abnormality. He remains quite weak and frail Appears to have failure to thrive Not interested in much conversation Psychiatry consulted regarding depression Poor candidate for biopsies or treatment at this time DO NOT RESUSCITATE/DO NOT INTUBATE CODE STATUS We'll sign off the case
[2022-08-26] MEDS: MIRTAZAPINE 15 MG TAB PO SCH (21:10)
[2022-08-27] MEDS: SODIUM CHLORIDE 0.9% 1,000 ML IV SCH ×2 (04:36→18:21)
--- NOTE | 2022-08-27 07:45 | P.PN ---
Subjective Progress Note Date: 08/27/22 Principal diagnosis: T8/T9 compression fracture Patient seen and examined this morning. Patient is resting in bed comfortably. Bed alarm is currently activated. No acute concerns overnight. RN reports overnight patient had pulled out two IVs and was removing his brief and cloth ing. Patient has been afebrile, denies and nausea/vomiting, or chest pain. Objective - Vital Signs Vital signs: Vital Signs Temp 98 F 08/27/22 02:30 Pulse 75 08/27/22 02:30 Resp 16 08/27/22 02:30 BP 154/83 08/27/22 02:30 Pulse Ox 96 08/27/22 02:30 FiO2 21 08/22/22 20:16 Intake & Output 08/26/22 08/27/22 08/27/22 18:59 06:59 18:59 Other: Voiding Method Diaper Diaper Incontinent Incontinent # Voids 1 2 - Exam Gen: AOx3, NAD VSS stable at this time Integument: No obvious open lesions are visualized throughout the cervical, thoracic or lumb ar spine Palpation: Patient demonstrates mild tenderness with palpation to the mid thoracic region both midline and paraspinal, no tenderness appreciated in the cervical or lumbar spine ROM: Full range of motion of all major muscle groups of the bilateral upper extremities, no focal deficits Range of motion of the bilateral lower extremities was difficult to assess, patient was willing to participate in exam. Sensory Exam: Senory exam to light touch is intact C5-T1 Senosry exam to light touch is intact L2-S1 Motor: SVETLANA per patient refusal Reflexes: Negative Helen's, negative Babinski, negative clonus - Labs CBC & Chem 7: 08/22/22 09:15 08/22/22 09:19 Labs: Microbiology - Last 24 Hours (Table) 08/20/22 13:45 Blood Culture - Final Blood No Growth after 144 hours 08/20/22 13:30 Blood Culture - Final Blood No Growth after 144 hours Assessment and Plan Assessment: Back pain T8-T9 vertebral compression fracture, chronic Possible metastatic lesion T8-T9 Pulmonary nodule, likely metastatic lesion Bladder cancer Multiple medical comorbidities Plan: -Appreciate outreach consultant and team management. -Weight-bear as tolerated, utilize walker -PT/OT -DVT prophylaxis per primary medical service -Pain control, continue with current medications -Recommendation from PT is FÁTIMA at discharge. -No emergent or urgent surgery is warranted at this time. Continue with conservative management. Our services are signing off, patient may follow up in office in 1 week after discharge. *I reviewed and discussed this case with my attending Dr. Carbajal, whom has reviewed this chart and films and is in agreement with assessment and plan of care as outlined above. I have personally seen and examined the patient, performed the documentation and the assessment and plan as written. Number of minutes spent on the visit: 20m.
[2022-08-27] MEDS: ASPIRIN 325 MG TAB PO SCH (09:22)
[2022-08-27] MEDS: ISOSORBIDE MONONITRATE ER 30 MG TAB.ER.24H PO SCH (09:22)
[2022-08-27] MEDS: carvediloL 3.125 MG TAB PO SCH ×2 (09:23→21:04)
[2022-08-27] MEDS: oxyCODONE-APAP 10-325MG 1 EACH TAB PO SCH ×4 (09:23→21:03)
[2022-08-27] MEDS ORDERED: SODIUM CHLORIDE 0.9% 500 ML 250 ML IV ONE (13:57)
[2022-08-27] MEDS ORDERED: SODIUM CHLORIDE 0.9% 500 ML 500 ML IV SCH (14:30)
--- NOTE | 2022-08-27 20:06 | P.PN ---
Subjective Progress Note Date: 08/27/22 Principal diagnosis: Dehydration, hematuria, Hx bladder carcinoma, suspect recurrence On f/u today pt is sitting in chair, he just received pain medication and is drifting off to sleep at times. Tried to discuss his desire for work up and if he would want to have treatment if he has recurrent bladder cancer. He was unable to answer questions. Objective - Vital Signs Vital signs: Vital Signs Temp 96.8 F L 08/27/22 15:15 Pulse 70 08/27/22 15:15 Resp 18 08/27/22 15:15 BP 87/55 08/27/22 15:15 Pulse Ox 98 08/27/22 15:15 FiO2 21 08/22/22 20:16 Intake & Output 08/27/22 08/27/22 08/28/22 06:59 18:59 06:59 Weight 71.668 kg Other: Voiding Method Diaper Diaper Incontinent Incontinent # Voids 2 1 - Constitutional General appearance: Present: average body habitus, no acute distress - EENT EENT Comment(s): Lt pupil dilated5-6mm, rt pupil pinpoint ENT: Present: hard of hearing - Respiratory Details: resp mildly labored at rest, no nasal flaring or accessory muscle use - Cardiovascular Details: radial pulse 2+, regular - Peripheral edema leg Peripheral Edema: bilateral: Trace - Integumentary Integumentary: Present: pale - Musculoskeletal Musculoskeletal: Present: generalized weakness - Psychiatric Psychiatric Comment(s): drowsy, he did answer a few questions appropriately - Labs CBC & Chem 7: 08/22/22 09:15 08/22/22 09:19 Labs: Microbiology - Last 24 Hours (Table) 08/20/22 13:45 Blood Culture - Final Blood No Growth after 144 hours 08/20/22 13:30 Blood Culture - Final Blood No Growth after 144 hours Assessment and Plan (1) History of bladder cancer Current Visit: Yes Status: Acute Priority: High Code(s): Z85.51 - PERSONAL HISTORY OF MALIGNANT NEOPLASM OF BLADDER SNOMED Code(s): 072827427 (2) Pulmonary nodule Current Visit: Yes Status: Acute Priority: High Code(s): R91.1 - SOLITARY PULMONARY NODULE SNOMED Code(s): 712783966 Plan: Bladder cancer -Hx of bladder cancer in 2005 with recurrence in 11/2021 -CT of the abdomen and pelvis 05/04, showed a new 1.8 cm nodule in the posterior lower left lung. With bone scan on 05/10/22 showing increased activity at T9 felt to reflect either a benign compression fracture or metastasis. PET scan on 06/21/22 showed a 2.2 cm left lower lobe nodule with SUV of 2.2, 1.5 cm AP window lymph node with SUV 8.7, activity in the T9 vertebral body with SUV of 2.5, and uptake at T8 with SUV 2.7. -Pt has been unable to f/u with referrals to Pulmonology and Orthopedic surgery for biopsies due to poor performance status and multiple hospitalizations. Reviewed Pulmonary notes, risk too high to consider bronch/biopsy. Orthopedic Surgeon has seen pt and would prefer PT prior to taking pt in for surgery or kyphoplasty. -Will discuss further with Orthopedic Surgeon and possibly IR to see if there is any area that could be biopsied to confirm metastatic disease. -Pt was not able to discuss how he would like to proceed due to effects of pain medication. -Will try to contact family to see what their thoughts are and what they need to know to help pt make decisions. They need to consider that pt current performance status is 3 and would not be a candidate for chemotherapy treatment at this time. Maybe radiation could help, if he has painful bone mets but, pt would have to be strong enough to get to appts. Pt has to participate in some sort of rehab to be strong enough to tolerate any type of treatment. Will update chart when we get more info. Weakness: -Pancultures negative. CT chest showed no infiltrates or pleural effusions -OT has been consulted -Agree with continued nutritional supplements and encouragement of oral intake attests: I have performed H&P and developed impression and plan of care for patient, discussed with dictator. I agree with dictated note, documented as a scribe
[2022-08-27] MEDS: MIRTAZAPINE 15 MG TAB PO SCH (21:03)
[2022-08-28] MEDS: SODIUM CHLORIDE 0.9% 1,000 ML IV SCH ×3 (06:09→22:22)
[2022-08-28] MEDS: ISOSORBIDE MONONITRATE ER 30 MG TAB.ER.24H PO SCH (08:39)
[2022-08-28] MEDS: carvediloL 3.125 MG TAB PO SCH ×2 (08:39→21:40)
[2022-08-28] MEDS: oxyCODONE-APAP 10-325MG 1 EACH TAB PO SCH ×4 (08:39→21:40)
[2022-08-28] MEDS: ASPIRIN 325 MG TAB PO SCH (08:39)
--- NOTE | 2022-08-28 18:41 | P.PN ---
Subjective Progress Note Date: 08/28/22 Principal diagnosis: Dehydration, hematuria, Hx bladder carcinoma, suspect recurrence On f/u today pt in bed, son at bedside. Pt is only responding with one or 2 words. Does not appear to be in any pain Objective - Vital Signs Vital signs: Vital Signs Temp 98.0 F 08/28/22 08:00 Pulse 63 08/28/22 14:30 Resp 18 08/28/22 14:30 BP 105/64 08/28/22 14:30 Pulse Ox 96 08/28/22 14:30 FiO2 21 08/28/22 07:59 Intake & Output 08/27/22 08/28/22 08/28/22 18:59 06:59 18:59 Intake Total 1200 Balance 1200 Weight 71.668 kg Intake: Intake, IV Titration 1200 Amount Sodium Chloride 0.9% 1, 1200 000 ml @ 100 mls/hr IV . Q10H [facility] Rx#:[id number] Other: Voiding Method Diaper Diaper Diaper Incontinent Incontinent Incontinent # Voids 1 2 1 - Constitutional General appearance: Present: average body habitus, disheveled, no acute distress - EENT Eyes: Present: anicteric sclerae ENT: Present: hearing grossly normal - Respiratory Respiratory: bilateral: diminished - Cardiovascular Heart sounds: normal: S1, S2 - Integumentary Integumentary: Present: pale - Musculoskeletal Musculoskeletal: Present: generalized weakness - Labs CBC & Chem 7: 08/22/22 09:15 08/22/22 09:19 Assessment and Plan (1) History of bladder cancer Current Visit: Yes Status: Acute Priority: High Code(s): Z85.51 - PERSONAL HISTORY OF MALIGNANT NEOPLASM OF BLADDER SNOMED Code(s): 418891128 (2) Pulmonary nodule Current Visit: Yes Status: Acute Priority: High Code(s): R91.1 - SOLITARY PULMONARY NODULE SNOMED Code(s): 724496716 Plan: Bladder cancer -Hx of bladder cancer in 2005 with recurrence in 11/2021 -Concerns for metastatic bladder cancer vs a new primary/metastatic cancer. PET scan 06/21/22 showed a 2.2 cm left lower lobe nodule with SUV of 2.2, 1.5 cm AP window lymph node with SUV 8.7, activity in the T9 vertebral body with SUV of 2.5, and uptake at T8 with SUV 2.7. -Pt has been unable to f/u with referrals to Pulmonology and Orthopedic surgery for biopsies due to poor performance status and multiple hospitalizations. Here inpt he has been seen and not felt to be a candidate for bronch or spine surgery -Pt has not able to discuss how he would like to proceed. -Spoke with son about pt current condition, the possible diagnoses, most likely malignant, why biopsy and confirmation of malignancy is needed-if treatment were desired, also, the likelihood, in pt current physical condition, that treatment would not provide relief of symptoms or prolongation of life, it fact, it may shorten life expectancy. Asked what other info they would need to aid in making decisions. He will talk to his family and see what their thoughts and questions are. We will have to call them as they will not be in the hospital until after 1pm tomorrow. Weakness: -Pancultures negative. CT chest showed no infiltrates or pleural effusions -OT has been consulted -Agree with continued nutritional supplements and encouragement of oral intake -Not certain that pt is even able to participate in any type of rehabilitation or physical therapy attests: I have performed H&P and developed impression and plan of care for patient, discussed with dictator. I agree with dictated note, documented as a scribe Time with Patient: Greater than 30 (counseling)
[2022-08-28] MEDS: MIRTAZAPINE 15 MG TAB PO SCH (21:40)
[2022-08-29] MEDS: SODIUM CHLORIDE 0.9% 1,000 ML IV SCH ×2 (08:36→19:19)
[2022-08-29] MEDS: ASPIRIN 325 MG TAB PO SCH (08:37)
[2022-08-29] MEDS: ISOSORBIDE MONONITRATE ER 30 MG TAB.ER.24H PO SCH (08:37)
[2022-08-29] MEDS: carvediloL 3.125 MG TAB PO SCH ×2 (08:37→21:16)
[2022-08-29] MEDS: oxyCODONE-APAP 10-325MG 1 EACH TAB PO SCH ×4 (08:38→21:30)
--- NOTE | 2022-08-29 10:37 | PN ---
PROGRESS NOTE DATE OF SERVICE: 08/28/2022 CHIEF COMPLAINT: Chest pain, abdominal pain, coronary artery disease, and carcinoma of bladder. HISTORY OF PRESENT ILLNESS: This gentleman is weakening every day. He is still awake, arousable, and oriented, but today he sounded slightly confused. His family is coming tomorrow and they are going to be discussing discharge planning and end of life care. PHYSICAL EXAMINATION: CHEST: He has good breath sounds bilaterally. CARDIAC: Normal. IMPRESSION: 1. Delirium. 2. Dehydration. 3. Coronary artery disease. 4. Chronic obstructive pulmonary disease. 5. Carcinoma of the bladder. 6. Chronic back pain. PLAN: Keep the patient as comfortable as possible. He has been referred to hospice. Family will be coming tomorrow to talk about end of life care. MMHIRAML / SUDHAKARN: [id number] /
--- NOTE | 2022-08-29 11:37 | PN ---
PROGRESS NOTE DATE OF SERVICE: 08/27/2022 CHIEF COMPLAINT: Chest pain, back pain, carcinoma of the bladder, general debility, and failure to thrive. HISTORY OF PRESENT ILLNESS: This gentleman is deteriorating. He has become weaker. He cannot walk and he is not eating or drinking. Case was discussed with him as well as his son. Family is coming to help him make a decision regarding end of life issues. He was told that he cannot return home without any help and he agreed to a consult with hospice . PHYSICAL EXAMINATION: GENERAL: He is getting more and more weak and dehydrated. CARDIAC: Unremarkable. CHEST: Clear. IMPRESSION: 1. Coronary artery disease. 2. Chronic obstructive pulmonary disease. 3. Carcinoma of the bladder. 4. Chronic back pain. 5. Depression. 6. History of coronary artery disease. PLAN: Hospice referral and discussed the case with his son who is bringing two other sibs to plan on . MMCAITLIN / SUDHAKARN: [id number] /
--- NOTE | 2022-08-29 16:34 | PN ---
PROGRESS NOTE DATE OF SERVICE: 08/26/2022 CHIEF COMPLAINT: Chest pain, back pain, COPD, and CA of the bladder. HISTORY OF PRESENT ILLNESS: This gentleman is not doing very well. He is not eating. He is not active. He refuses physical therapy. PHYSICAL EXAMINATION: GENERAL: He is getting more dehydrated and weaker. CHEST: Clear. IMPRESSION: Dehydration, failure to thrive, anorexia, and carcinoma of the bladder. PLAN: The patient was admonished to try to increase activity and eat and drink more. Prognosis is poor, and he will not be able to return home to live independently. MMODL / IJN: [id number] /
--- NOTE | 2022-08-29 18:06 | CDI ---
Documentation Clarification Form Date: 08/29/2022 5:48:14 PM From: Agnieszka Sanderson RN, CCDS Admit Date: 08/20/2022 12:37:00 PM Patient Name: Isac Taylor Visit Number: [id number] Discharge Date: ATTENTION: The Clinical Documentation Specialists (CDI) and [facility] Coding Staff appreciate your assistance in clarifying documentation. Please respond to the clarification below the line at the bottom and electronically sign. The CDI & [facility] Coding staff will review the response and follow-up if needed. Please note: Queries are made part of the Legal Health Record. If you have any questions, please contact the author of this message via ITS. Dr. Jasson Betancourt Malnutrition is documented in the progress note on 08/24/22.. Additional clarification regarding the severity of malnutrition is requested. History/Risk Factors: UTI, Dehydration, Hematuria, bladder cancer, COPD Clinical Indicators: 87-year-old male with recurrence of bladder ca. He present with dehydration Current BMI: 22 Insufficient energy intake: Inadequate energy intake, poor appetite. 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 MMODL / IJN: [id number] / Dictated By: Jasson Betancourt MD Signed By: ANDREINA/ 1810 TD/TT:10/04/22 0422 Dental Laboratory Manager: Neva WRIGHT
[2022-08-29] MEDS: MIRTAZAPINE 15 MG TAB PO SCH (21:16)
[2022-08-29] MEDS: FAMOTIDINE 20 MG TAB PO PRN (21:27)
[2022-08-30] MEDS: SODIUM CHLORIDE 0.9% 1,000 ML IV SCH ×2 (05:12→17:43)
[2022-08-30 07:37] VITALS: RESP 18
[2022-08-30] MEDS: ASPIRIN 325 MG TAB PO SCH (10:17)
[2022-08-30] MEDS: ISOSORBIDE MONONITRATE ER 30 MG TAB.ER.24H PO SCH (10:18)
[2022-08-30] MEDS: carvediloL 3.125 MG TAB PO SCH (10:18)
[2022-08-30] MEDS: oxyCODONE-APAP 10-325MG 1 EACH TAB PO SCH ×2 (10:18→13:27)
[2022-08-30 12:12] VITALS: BP 159/72; PULSE 70; TEMP 98.5
--- NOTE | 2022-08-30 14:22 | DS ---
DISCHARGE SUMMARY CHIEF COMPLAINT: Chest pain, back pain, weakness and hematuria. HISTORY OF PRESENT ILLNESS AND PHYSICAL EXAMINATION: Details of this man's history and physical can be found in the initial workup. LABORATORY STUDIES: While he was in the hospital, he had laboratory studies, details of which can be found in the laboratory section of his chart. COURSE IN THE HOSPITAL: After admission, he was placed on bedrest and started on intravenous fluids. He was seen and followed by Oncology. He has had longstanding history of coronary artery disease, which is likely the etiology of his chest pain. He also continues to smoke and has COPD. He has chronic low back pain. When he came into the hospital and started on IV fluids and antibiotics, it was felt that he would do well. He is usually very anxious to get out of the hospital and get back home. However, on this admission he became gradually weaker and stopped eating and drinking. Physical therapy was ordered, but he would not comply. He continued to slowly deteriorate. Case was discussed with the patient on numerous different occasions and it was explained that he would have to go to rehab and would not be able to return to live alone in his apartment. As he steadily deteriorated, it was realized that he was not going to recover. Family was notified and the patient was given various options, but the patient's family decided on inpatient hospice and he will be transferred there on the . FINAL DIAGNOSES: 1. Chest pain. 2. Angina pectoris. 3. Coronary artery disease. 4. Chronic obstructive pulmonary disease. 5. 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 6. Carcinoma of the bladder. 7. Urinary tract infection. 8. General debility and failure to thrive. 9. Dehydration. 10.Anorexia. OPERATIONS: None. CONSULTATIONS: Oncology. MMODL / ESTEFANY: [id number] /
--- NOTE | 2022-08-31 05:26 | PN ---
PROGRESS NOTE DATE OF SERVICE: 08/30/2022 CHIEF COMPLAINT: CA of the bladder, dehydration, malnutrition, general debility, and failure to thrive. HISTORY OF PRESENT ILLNESS: This gentleman's condition is unchanged. He is awake, but not eating or drinking. PHYSICAL EXAMINATION: GENERAL: He is slightly dehydrated. CHEST: Breath sounds are heard bilaterally. ABDOMEN: Soft, nontender. IMPRESSION: 1. History of coronary artery disease. 2. Chronic low back pain. 3. Carcinoma of the bladder. 4. Anorexia. 5. General debility. 6. Dehydration. 7. Failure to thrive. PLAN: Family is working on some type of a discharge plan. They are not sure if they are going to send him to a [facility] with or without hospice or send him to the hospice house in [place]. MMHIRAML / SUDHAKARN: [id number] /
--- NOTE | 2022-08-31 22:16 | PN ---
PROGRESS NOTE DATE OF SERVICE: 08/29/2022 CHIEF COMPLAINT: Progressive confusion, delirium, dehydration, malnutrition, and anorexia. HISTORY OF PRESENT ILLNESS: This gentleman is weakening more each day. He is not eating or drinking. Family is coming to discuss end-of-life care. He is referred to Hospice. PHYSICAL EXAMINATION: CHEST: Breath sounds are heard bilaterally. CARDIAC: Normal. ABDOMEN: Soft. IMPRESSION: 1. General debility and failure to thrive. 2. Dehydration. 3. Anorexia. 4. Carcinoma of the bladder. 5. Chronic low back pain. PLAN: Await family visit to continue efforts to determine where he will go after the hospital and with what kind of care. MMODL / IJN: [id number] /
--- NOTE | 2022-09-02 06:12 | DS ---
DISCHARGE SUMMARY CHIEF COMPLAINT: Chest and back pain with carcinoma of the bladder. HISTORY OF PRESENT ILLNESS AND PHYSICAL EXAM: Details of this man's history and physical can be found in the initial workup. LABORATORY STUDIES: While he is in the hospital, he had laboratory studies, details of which can be found in the laboratory section of his chart. COURSE IN THE HOSPITAL: After admission, he was placed on bedrest on intravenous fluid. He continued to have difficulty with back pain as well as lower abdominal pain. He became more and more sedentary and refused physical therapy. He continued to weaken and they came to the point where it was determined he could not return home to his apartment. Eventually, the family became involved and the decision was made that he would go to the hospice house in [place]. FINAL DIAGNOSES: 1. Chest pain. 2. Low back pain. 3. Coronary artery disease. 4. Osteoarthritis of spine. 5. Anemia. 6. Carcinoma of bladder. 7. General debility and failure to thrive. OPERATIONS: None. CONSULTATION: None. He is improved. MMHIRAML / ESTEFANY: [id number] /
--- NOTE | 2022-10-04 04:28 | MISC ---
MISCELLANOUS REPORT Mild protein-calorie malnutrition. MMODL / IJN: [id number] /
== END 2022-08-30 19:05 | disposition hospice, home (50) | DRG 641 ==
LOC: EC 09:51 → 5NMEDONC 12:37
PROVIDERS: ADMIT Family Medicine; ATTEND Family Medicine
DX: E86.0 Dehydration (principal); C79.51 Secondary malignant neoplasm of bone; C78.02 Secondary malignant neoplasm of left lung; M48.54XA Collapsed vertebra, not elsewhere classified, thoracic region, initial encounter for fracture; N30.41 Irradiation cystitis with hematuria; N17.9 Acute kidney failure, unspecified; E44.1 Mild protein-calorie malnutrition; I25.119 Atherosclerotic heart disease of native coronary artery with unspecified angina pectoris; C67.9 Malignant neoplasm of bladder, unspecified; I12.9 Hypertensive chronic kidney disease with stage 1 through stage 4 chronic kidney disease, or unspecified chronic kidney disease; N18.9 Chronic kidney disease, unspecified; Z51.5 Encounter for palliative care; Z66 Do not resuscitate; M47.9 Spondylosis, unspecified; Z94.89 Other transplanted organ and tissue status; Z68.22 Body mass index [BMI] 22.0-22.9, adult; F10.11 Alcohol abuse, in remission; R53.81 Other malaise; R63.0 Anorexia; D63.1 Anemia in chronic kidney disease; F32.A Depression, unspecified; R62.7 Adult failure to thrive; G89.29 Other chronic pain; Z20.822 Contact with and (suspected) exposure to COVID-19; F17.210 Nicotine dependence, cigarettes, uncomplicated; M10.9 Gout, unspecified; I25.2 Old myocardial infarction; K29.70 Gastritis, unspecified, without bleeding; Y84.2 Radiological procedure and radiotherapy as the cause of abnormal reaction of the patient, or of later complication, without mention of misadventure at the time of the procedure; Z53.20 Procedure and treatment not carried out because of patient's decision for unspecified reasons; Z60.2 Problems related to living alone; Z79.82 Long term (current) use of aspirin; Z79.899 Other long term (current) drug therapy; Z80.8 Family history of malignant neoplasm of other organs or systems; Z87.828 Personal history of other (healed) physical injury and trauma; Z88.0 Allergy status to penicillin; Z79.891 Long term (current) use of opiate analgesic; Z28.82 Immunization not carried out because of caregiver refusal
CPT/HCPCS: 36415; 71046; 80048; 80053; 81001; 82550; 82553; 83605; 83735; 84484; 85025; 85610; 85730; 87040; 87086; 87636; 93005; 94760; 96361; 96365; 96375; 99285